=== PATIENT | female | born 1940 | race Caucasian/White ===

== ENCOUNTER 2018-04-10 18:02 | Emergency (ER) | payer MEDICARE, SELFPAY ==
[2018-04-10 18:03] VITALS: BP 114/71; PULSE 82; RESP 16; TEMP 36.6; O2SAT 99; BMI 21.6
--- NOTE | 2018-04-10 19:10 | CT_ITS ---
STUDY: CT BRAIN WITHOUT CONTRAST REASON FOR EXAM: Female, 77 years old. Visual disturbance. RADIATION DOSAGE (If Supplied By Facility): CTDIvol = ( 44.99 ) mGy, DLP = ( 779.24 ) mGycm TECHNIQUE: Transaxial CT imaging of the brain was performed without administration of intravenous contrast material. Individualized dose optimization techniques were used for this CT. COMPARISON: None. FINDINGS: There is no acute bleed or infarct. There are chronic ischemic and atrophic changes. The ventricles are normal in configuration. There is no hydrocephalus. The visualized paranasal sinuses are clear. The mastoid air cells are well aerated. There is no skull fracture. There is soft tissue swelling overlying the forehead and face. CT/Brain/Head without Contrast IMPRESSION: No acute intracranial abnormality. Chronic ischemic and atrophic changes. Soft tissue swelling overlying the forehead and face. Electronically Signed: Eusebio Pereira, at 20:49 EST Tel , Service support ,
[2018-04-10 19:53] LABS: Absolute Lymphocyte Count 0.74 X10^3/ul (0.83-4.51); Absolute Neutrophil Count 2.7 X10^3/uL (2.0-7.7); Basophil# 0.04 X10^3/uL; Hematocrit 37.2 % (37-47); Hemoglobin 12.3 g/dl (12.0-15.0); Lymphocyte # 0.74 X10^3/ul (4.0); Lymphocyte % 19.1 % (19-41); Mean Corp Hgb Conc 33.1 g/gl (32-36); Mean Corpuscular Hgb 31.7 pg (27.0-32.0); Mean Corpuscular Volume 95.9 fL (81-99); Monocyte% 10.3 % (0-10); Neutrophil # 2.69 X10^3/uL (2.7-7.7); Neutrophil % 69.6 % (47-70); Platelet Count 184 K/mm3 (150-450); RBC Distribution Width CV 14.1 % (11.6-14.6); RBC Distribution Width SD 49.5 fl (35.1-43.9); Red Blood Count 3.88 M/mm3 (4.2-5.4); White Blood Count 3.9 K/mm3 (4.4-11.0)
[2018-04-10 20:00] LABS: POSITIVE COUNT NO; POSITIVE DIFFERENTIAL NO; POSITIVE MORPHOLOGY NO
[2018-04-10 20:03] LABS: Anion Gap 7 (5-15); BUN 33 mg/dL (7-18); BUN/Creat Ratio 32.7 RATIO (10-20); Calcium,Total 8.5 mg/dL (8.5-10.1); Chloride 111 mmol/L (98-107); Creatinine, Serum 1.01 mg/dL (0.55-1.02); EST Glomerular Filtration Rate 56 mL/min (>60); Est Glom Filt Rate - Afr Amer 68 mL/min (>60); Estimated Creatinine Clearance 40.64 ml/min; Glucose 121 mg/dL (74-106); Potassium 3.8 mmol/L (3.5-5.1); Sodium Level 139 mmol/L (136-145)
--- NOTE | 2018-04-10 21:29 | ED.VISSUMM ---
- ER Visit Summary Date of Service: 04/10/18 Chief Complaint: Shingles History of Present Illness: The patient is a 77 F who presents with shingles that became worse today. Patient was recently diagnosed with shingles and was started on antiviral medicine. Family states that the shingles was over the left forehead and left periorbital area. Today they state that the swelling is around the right eye. Patient denies any fevers or chills. Patient admits to some blurred vision. Patient describes her headache as sharp and aching. Patient states the pain is over the rash area. Patient admits to some nausea but denies any vomiting. Physical Examination: Vital signs are stable. Patient is afebrile. Patient is in no acute distress. Skin is warm and dry. There is erythema in the periorbital areas bilaterally. There is vesicles and crusting noted over the left frontal area of the scalp. Pupils are equal, round, and reactive to light bilaterally. Extraocular muscles are intact. Tetracaine and fluorescein dye was applied. There is no dendritic lesion noted bilaterally. There are no corneal abrasions noted. Oral mucosa is pink and moist. Neck is supple. Trachea is midline. There is no JVD noted. There is no meningismus noted. Heart was regular rate and rhythm. Lungs are clear and equal bilateral. Cranial nerves II through XII are intact. There are no focal motor or sensory deficits noted. Test Results: CT scan of the brain was obtained. There is no acute intracranial abnormality noted. CBC shows a white blood cell count 3.9. Metabolic profile was normal. Emergency Department Course and Treatment: Patient was given IV fluids and morphine here. Patient and family were advised of the results. poultry offal worker was in to discuss home-going plan with the patient and family. Patient was instructed to follow-up with her primary care physician in 3-5 days. Patient and family understood and were agreeable with the plan. All questions were answered. Disposition: Discharge home Impression: Varicella-zoster This note was generated with IAMINTO[employer] dictation software. It may contain incorrect words, spelling, and punctuation that were not noted in review of the chart prior to signing ED Disposition - Plan for ED Patient: Disposition: Home or Assisted Living Diagnosis: Varicella zoster Instructions: ED Shingles Referrals: Skinny Bains MD [Primary Care Provider] -
--- NOTE | 2018-04-10 21:34 | ED.DCSUM_ITS ---
- ER Visit Summary Date of Service: 04/10/18 Chief Complaint: Shingles History of Present Illness: The patient is a 77 F who presents with shingles that became worse today. Patient was recently diagnosed with shingles and was started on antiviral medicine. Family states that the shingles was over the left forehead and left periorbital area. Today they state that the swelling is around the right eye. Patient denies any fevers or chills. Patient admits to some blurred vision. Patient describes her headache as sharp and aching. Patient states the pain is over the rash area. Patient admits to some nausea but denies any vomiting. Physical Examination: Vital signs are stable. Patient is afebrile. Patient is in no acute distress. Skin is warm and dry. There is erythema in the periorbital areas bilaterally. There is vesicles and crusting noted over the left frontal area of the scalp. Pupils are equal, round, and reactive to light bilaterally. Extraocular muscles are intact. Tetracaine and fluorescein dye was applied. There is no dendritic lesion noted bilaterally. There are no corneal abrasions noted. Oral mucosa is pink and moist. Neck is supple. Trachea is midline. There is no JVD noted. There is no meningismus noted. Heart was regular rate and rhythm. Lungs are clear and equal bilateral. Cranial nerves II through XII are intact. There are no focal motor or sensory deficits noted. Test Results: CT scan of the brain was obtained. There is no acute intracranial abnormality noted. CBC shows a white blood cell count 3.9. Metabolic profile was normal. Emergency Department Course and Treatment: Patient was given IV fluids and morphine here. Patient and family were advised of the results. slab worker was in to discuss home-going plan with the patient and family. Patient was instructed to follow-up with her primary care physician in 3-5 days. Patient and family understood and were agreeable with the plan. All questions were answered. Disposition: Discharge home Impression: Varicella-zoster This note was generated with Driverdo dictation software. It may contain incorrect words, spelling, and punctuation that were not noted in review of the chart prior to signing ED Disposition - Plan for ED Patient: Disposition: Home or Assisted Living Diagnosis: Varicella zoster Instructions: ED Shingles Referrals: Skinny Bains MD [Primary Care Provider] -
[2018-04-10] MEDS: Morphine 4 MG/ML Syringe IV (21:49)
--- NOTE | 2018-04-10 21:56 | CM.ED ---
SOCIAL WORK NOTE DR. LIM REQUESTED THIS WORKER FOLLOW UP WITH FAMILY REGARDING D/C NEEDS. MET WITH PT, PT'S SON, CARLOS ([phone]) AND DAUGHTER, ANDRZEJ AT BEDSIDE. PT PRESENTS TO THE ED WITH SHINGLES. FAMILY WAS HOPING PT WOULD BE ADMITTED THEY BELIEVE SHINGLES TO BE GETTING WORSE AND ARE CONCERNED PT IS NOT EATING AND SLEEPING A LOT. EDUCATION AND SUPPORT PROVIDED. PER DR. LIM, PT DOES NOT MEET ADMISSION CRITERIA. DISCUSSED OPTIONS FOR HOME HEALTH OR PRIVATE PAY TO LONG TERM. FAMILY DECLINE NEEDS AT THIS TIME. FAMILY STATES WILL ASSIST PT WITH MEDICATIONS AND MEALS. DAUGHTER REPORTS PT HAS FOLLOW UP APPOINTMENTS WITH PCP AND EYE DOCTOR ON FRIDAY AND WILL DISCUSS FURTHER NEEDS AT THAT TIME. EDUCATION PROVIDED ON MEDICAID AND PASSPORT SERVICES. SON PROVIDED WITH CONTACT INFORMATION FOR MEDICAID SHARED SERVICES TO START MEDICAID PROCESS THEY BELIEVE PT WILL QUALIFY. CONTACT INFORMATION FOR THIS WORKER ALSO GIVEN FOR ANY FURTHER ASSISTANCE OR NEEDS. UPDATED DR. LIM ON THIS WORKER'S DISCUSSION WITH PT AND FAMILY. PLAN: D/C HOME WITH ASSISTANCE FROM FAMILY. [place], LIVESTOCK JUDGING COACH, ADMISSION NURSE.
[2018-04-10 22:22] VITALS: BP 125/67; PULSE 94; RESP 15; O2SAT 98
[2018-04-10] MEDS: Tetracaine 0.5% Ophthalmic Bottle 1 DRP EACH EYE (22:23)
[2018-04-10] MEDS: Fluorescein 1 MG STRIP 1 STRIP EACH EYE (22:23)
--- NOTE | 2018-05-26 11:00 | CM.ED ---
SOCIAL WORK NOTE VM FROM PT'S DAUGHTER, ANDRZEJ, STATING THAT SHE WOULD LIKE THE ED MANAGER OF MERCHANDISING TO SETUP IN HOME CARE THROUGH PASSPORT SERVICES. REVIEW [facility] [employer], DISPENSING OPTICIAN APPRENTICE, DOCUMENTATION FROM 04/10 WHERE SHE REVIEWED MEDICAID AND PASSPORT SERVICES WITH PT AND FAMILY. PLACED CALL TO ANDRZEJ AND LEFT VM UPDATING THAT PASSPORT WOULD NOT BE APPROVED UNLESS THEY HAD APPLIED FOR MEDICAID AT THIS TIME, AND THAT HOME CARE CAN NOT BE ESTABLISHED BY THE HOSPITAL PRESENTLY NO MEDICAL PROFESSIONAL SEEN THE PT FACE TO FACE IN OVER 30 DAYS AND RECOMMEND THAT THEY SCHEDULE AN APPOINTMENT WITH THEIR PCP FOR ORDER HHC SERVICES. MADE AWARE THAT THIS LABORATORY ASSOCIATE IS AVAILABLE TODAY IF FURTHER QUESTIONS ARISE. WILL CONTINUE TO FOLLOW AND ASSIST NEEDED. Luzma Vines, MANAGER CUSTOMS, STRAW HAT WASHER OPERATOR
--- NOTE | 2018-05-26 12:02 | CM.ED ---
SOCIAL WORK NOTE CALL BACK FROM ANDRZEJ REQUESTING INFORMATION ON HOW TO APPLY FOR MEDICAID. INFORM THAT SHE CAN FILL OUT A HARD COPY, GO ONLINE OR CALL THE PHONE NUMBER TO APPLY. ANDRZEJ REQUESTS THAT THIS GREEN CHAIN OPERATOR MAIL HER AN APPLICATION. DISCUSS THAT ONCE THE PT RECEIVES MEDICAID SHE COULD BE ELIGIBLE FOR PASSPORT SERVICES AND TO LET [facility] KNOW THEY ARE INTERESTED IN THOSE SERVICES WHEN THEY SUBMIT THE APPLICATION. ALSO DISCUSS CCN AND SENT REFERRAL THIS DATE. CONFIRM ANDRZEJ'S ADDRESS [address] [place] [address]. REQUESTED INFORMATION MAILED. NO FURTHER NEEDS AT THIS TIME. PLAN: [facility] REFERRAL MADE. MEDICAID APPLICATION MAILED TO FAMILY. Luzma Vines, PRODUCTION CONTROL TECHNOLOGIST, LABORER CONCRETE PLANT
== END 2018-04-10 22:32 | disposition home or self-care (01) ==
PROVIDERS: Emergency Provider Emergency Medicine; Family Provider Family Medicine; PCP Family Medicine
DX: B01.9 Varicella without complication (principal); F03.90 Unspecified dementia, unspecified severity, without behavioral disturbance, psychotic disturbance, mood disturbance, and anxiety
CPT/HCPCS: 70450; 80048; 85025; 96374; 99283; A4216

== ENCOUNTER 2019-12-10 15:50 | Inpatient (IN) | payer MEDICARE, SELFPAY ==
[2019-12-10 15:55] VITALS: BP 153/60; PULSE 58; RESP 18; TEMP 36.6; O2SAT 97; BMI 21.4
--- NOTE | 2019-12-10 16:08 | ED.VIS.GEN ---
History of Present Illness Chief Complaint: Weakness Informant: Patient, Family, Traffic Control Specialist Narrative: Patient presents the emergency department following a diagnosis of COVID-19. She has been sick since last . Family notes T-max of about 100.3. Sinus congestion and a slight cough. They note her to be generally weak and sleeping more than normal. She really has not had much to eat the past few days. Today she was going out to the couch stopped and stared seem to shake a little bit and almost collapsed. This happened again. EMS was called. She found out her Covid test was positive today. She denies any diarrhea or urinary symptoms. She denies any shortness of breath. Family does note some confusion Past Medical History - Allergies and Home Meds Allergies/Adverse Reactions: Allergies No Known Allergies Allergy (Verified 12/10/19 15:55) Primary Care Physician: Skinny Bains MD [Primary Care Provider] - Prior records reviewed: Yes Surgical History: noncontributory Lives: With Family Smoking Status: Former smoker Drugs: None - Family History Maternal Family History: Reports: Cancer - There with history of breast cancer. Paternal Family History: Reports: Hypertension Sibling Family History: Reports: Cancer - Sister with a history of lymphoma. Review of Systems General: Reports: Chills, Fever, Malaise. Denies: Sweats Eyes: Denies: Visual changes - bilaterally, Diplopia ENT: Reports: Rhinorrhea. Denies: Sore throat Cardiovascular: Denies: Chest pain, Palpitations Respiratory: Reports: Cough. Denies: Dyspnea, Dyspnea on exertion Gastrointestinal: Reports: - - Anorexia. Denies: Abdominal pain, Nausea, Vomiting, Diarrhea, Melena, Hematochezia Genitourinary: Denies: Dysuria, Hematuria, Frequency Musculoskeletal: Denies: Back pain, Extremity Pain Skin: Denies: Rash, Wounds Neurological: Denies: Headache, Weakness, Numbness Physical Exam Vital Signs/Narrative: Vital Signs Temp Pulse Resp BP Pulse Ox 12/10/19 15:55 98 F 58 L 18 153/60 H 97 Inital Vital Signs reviewed: Yes General: Well nourished, Well developed, No Acute Distress Head: Normocephalic, Atraumatic Eyes: Perrl, EOMI ENT: Dry mucous membranes, Nasal congestion Neck: Supple, Nontender Cardiovascular: Regular rate, Regular rhythm, No murmurs Respiratory: No distress, CTA bilaterally, Chest nontender, - - Mild nonproductive cough Abdomen: Soft, Nontender, Nondistended, Normal bowel sounds Back: Nontender, Normal Inspection Extremities: No edema, Tenderness - Right foot mildly tender Skin: Normal color, No rash Neurological: Alert, Oriented x3, Cranial nerves II-XII grossly intact, Normal Strength, Normal Sensation Psychological: Normal affect, Normal Mood Diagnostic/Tx/Re-eval Clinical Impression(s) from Imaging Studies Chest X-Ray 12/10/19 16:20 IMPRESSION: Emphysema without pneumonia or atelectasis. Electronically Signed: Andres Gray MD at 16:45 EDT Tel , Service support , Foot X-Ray 12/10/19 17:30 IMPRESSION: Evaluation of the first and second toes is limited by suboptimal positioning. No fracture or dislocation identified in the right foot. Mild degenerative changes at the first MTP joint with hallux valgus. Electronically Signed: Eusebio Pereira, at 17:44 EDT Tel , Service support , Laboratory Last Values WBC 2.1 K/mm3 (4.4-11.0) L 12/10/19 16:40 RBC 3.58 M/mm3 (4.2-5.4) L 12/10/19 16:40 Hgb 11.5 g/dL (12.0-15.0) L 12/10/19 16:40 Hct 35.2 % (37-47) L 12/10/19 16:40 MCV 98.3 fL (81-99) 12/10/19 16:40 MCH 32.1 pg (27.0-32.0) H 12/10/19 16:40 MCHC 32.7 g/dL (32-36) 12/10/19 16:40 RDW Std Deviation 46.5 fl (35.1-43.9) H 12/10/19 16:40 RDW Coeff of Kaye 12.9 % (11.6-14.6) 12/10/19 16:40 Plt Count 213 K/mm3 (150-450) 12/10/19 16:40 MPV 9.6 fl (6.2-12.0) 12/10/19 16:40 Immature Gran % (Auto) 1.400 % (0.0-0.9) H 12/10/19 16:40 Neut % (Auto) 71.5 % (47-70) H 12/10/19 16:40 Lymph % (Auto) 19.0 % (19-41) 12/10/19 16:40 [place] % (Auto) 8.1 % (0-10) 12/10/19 16:40 Eos % (Auto) 0.0 % (0-5) 12/10/19 16:40 Baso % (Auto) 0.0 % (0-1) 12/10/19 16:40 Absolute Neuts (auto) 1.5 X10^3/uL (2.0-7.7) L 12/10/19 16:40 Absolute Lymphs (auto) 0.40 X10^3/uL (0.83-4.51) L 12/10/19 16:40 Nucleated RBC % 0 % (0-5) 12/10/19 16:40 Differential Comment SEE COMMENT 12/10/19 16:40 Diff Path Review June12/10/19 16:40 Platelet Estimate ADEQUATE (ADEQ) 12/10/19 16:40 RBC Morphology N CHROM NORMAL (NORM C&C) 12/10/19 16:40 Anisocytosis RARE 12/10/19 16:40 Macrocytosis RARE 12/10/19 16:40 Ovalocytes RARE 12/10/19 16:40 Fibrinogen 552 mg/dl (203-444) H 12/10/19 16:40 D-Dimer Quant (PE/DVT) 4.33 FEU/ug/m (0.27-0.49) H* 12/10/19 16:40 Sodium 140 mmol/L (136-145) 12/10/19 16:40 Potassium 4.1 mmol/L (3.5-5.1) 12/10/19 16:40 Chloride 110 mmol/L (98-107) H 12/10/19 16:40 Carbon Dioxide 23.0 mmol/L (21.0-32.0) 12/10/19 16:40 Anion Gap 7 (5-15) 12/10/19 16:40 BUN 24 mg/dL (7-18) H 12/10/19 16:40 Creatinine 1.30 mg/dL (0.55-1.02) H 12/10/19 16:40 Estim Creat Clear Calc 30.54 ml/min 12/10/19 16:40 Est GFR (MDRD) Af Amer 51 mL/min (>60) L 12/10/19 16:40 Est GFR (MDRD) Non-Af 42 mL/min (>60) L 12/10/19 16:40 BUN/Creatinine Ratio 18.5 RATIO (-20) 12/10/19 16:40 Glucose 95 mg/dL (74-106) 12/10/19 16:40 Lactic Acid 0.9 mmol/L (0.4-1.9) 12/10/19 16:40 Calcium 8.6 mg/dL (8.5-10.1) 12/10/19 16:40 Total Bilirubin 0.20 mg/dL (0.20-1.00) 12/10/19 16:40 AST 55 U/L (15-37) H 12/10/19 16:40 ALT 33 U/L (13-56) 12/10/19 16:40 Alkaline Phosphatase 66 U/L (45-117) 12/10/19 16:40 Lactate Dehydrogenase 401 U/L (84-246) H 12/10/19 16:40 Total Creatine Kinase 95 U/L (26-192) 12/10/19 16:40 Troponin I < 0.015 ng/mL (<0.045) 12/10/19 16:40 C-React Prot Ext Range 36.80 mg/L (0.0-3.0) H 12/10/19 16:40 Total Protein 6.9 g/dL (6.4-8.2) 12/10/19 16:40 Albumin 2.8 g/dL (3.2-5.0) L 12/10/19 16:40 Globulin 4.1 g/dL (2.2-4.2) 12/10/19 16:40 Albumin/Globulin Ratio 0.7 RATIO (0.9-2.4) L 12/10/19 16:40 - Medical Decision Making Patient received IV fluids. Her plan is admission into the hospital as she has debility and a mild encephalopathy most likely from the Covid. ED Disposition - Plan for ED Patient: Disposition: Acute Care Hospital [facility] Diagnosis: COVID-19, Weakness, Debility, Encephalopathy acute Referrals: Skinny Bains MD [Primary Care Provider] -
--- NOTE | 2019-12-10 16:18 | EKG12_ITS ---
Test Reason : Blood Pressure : / mmHG Vent. Rate : 059 BPM Atrial Rate : 059 BPM P-R Int : 168 ms QRS Dur : 080 ms QT Int : 430 ms P-R-T Axes : 061 016 050 degrees QTc Int : 425 ms Sinus bradycardia Otherwise normal ECG Confirmed by KRISTIN JACQUES, RENUKA ([id number]), telegraph editor ZULAY EDDY ([id number]) on 12/13/2019 11:29:47 AM Referred By: CHANCE Confirmed By:RENUKA FOSTER MD
--- NOTE | 2019-12-10 16:20 | RAD_ITS ---
STUDY: X-RAY CHEST REASON FOR EXAM: Female, 79 years old. POSITIVE COVID. WEAKNESS. TECHNIQUE: Single AP portable view of the chest. COMPARISON: None. FINDINGS: There is hyperinflation of the lungs consistent with chronic obstructive lung disease (COPD). Elevated right hemidiaphragm. Normal size heart. Normal mediastinum and nay. Normal visualized pulmonary arteries. Normal visualized aortic arch and descending thoracic aorta. Normal visualized thoracic spine. Normal visualized ribs, clavicles, and shoulders. There is no demonstrated abnormality of the visualized soft tissue structures of the upper abdomen. RAD/Chest 1 View (Portable) IMPRESSION: Emphysema without pneumonia or atelectasis. Electronically Signed: Andres Gray MD at 16:45 EDT Tel , Service support ,
[2019-12-10] MEDS: 0.9% Normal Saline 1,000 ML 999 ML IV (16:34)
--- NOTE | 2019-12-10 16:45 | NURSING ---
PT DID NOT HAVE A PREVIOUS EKG IN OUR SYSTEM
[2019-12-10 17:02] LABS: Absolute Neutrophil Count 1.5 X10^3/uL (2.0-7.7); Hematocrit 35.2 % (37-47); Hemoglobin 11.5 g/dL (12.0-15.0); Mean Corp Hgb Conc 32.7 g/dL (32-36); Mean Corpuscular Hgb 32.1 pg (27.0-32.0); Mean Corpuscular Volume 98.3 fL (81-99); Mean Platelet Vol. 9.6 fl (6.2-12.0); Monocyte# 0.17 X10^3/uL; Monocyte% 8.1 % (0-10); NRBC Flagged by Analyzer 0 % (0-5); Neutrophil % 71.5 % (47-70); POSITIVE DIFFERENTIAL YES; Platelet Count 213 K/mm3 (150-450); RBC Distribution Width CV 12.9 % (11.6-14.6); RBC Distribution Width SD 46.5 fl (35.1-43.9); Red Blood Count 3.58 M/mm3 (4.2-5.4); White Blood Count 2.1 K/mm3 (4.4-11.0)
[2019-12-10 17:20] LABS: Fibrinogen 552 mg/dl (203-444)
[2019-12-10 17:22] LABS: Differential Indicated SCAN CRITERIA MET
[2019-12-10 17:30] LABS: ALB/GLOB Ratio 0.7 RATIO (0.9-2.4); AST(SGOT) 55 U/L (15-37); Alanine Aminotransfer ALT/SGPT 33 U/L (13-56); Albumin, Serum 2.8 g/dL (3.2-5.0); Alkaline Phosphatase 66 U/L (45-117); Anion Gap 7 (5-15); BUN 24 mg/dL (7-18); BUN/Creat Ratio 18.5 RATIO (10-20); CPK Total, Creatine Kinase 95 U/L (26-192); Calcium,Total 8.6 mg/dL (8.5-10.1); Chloride 110 mmol/L (98-107); EST Glomerular Filtration Rate 42 mL/min (>60); Est Glom Filt Rate - Afr Amer 51 mL/min (>60); Estimated Creatinine Clearance 30.54 ml/min; Globulin 4.1 g/dL (2.2-4.2); Glucose 95 mg/dL (74-106); LDH 401 U/L (84-246); Potassium 4.1 mmol/L (3.5-5.1); Protein, Total 6.9 g/dL (6.4-8.2); Sodium Level 140 mmol/L (136-145)
--- NOTE | 2019-12-10 17:30 | RAD_ITS ---
STUDY: X-RAY - RIGHT FOOT CLINICAL: Female, 79 years old. Pain TECHNIQUE: 3 view(s) of the foot. COMPARISON: None. FINDINGS: Evaluation of the first and second toes is limited by suboptimal positioning. There is no fracture or dislocation identified in the right foot. There are mild degenerative changes noted at the first metatarsophalangeal joint with hallux valgus noted. There are no radiodense foreign bodies. RAD/Foot min 3 Views IMPRESSION: Evaluation of the first and second toes is limited by suboptimal positioning. No fracture or dislocation identified in the right foot. Mild degenerative changes at the first MTP joint with hallux valgus. Electronically Signed: Eusebio Pereira, at 17:44 EDT Tel , Service support ,
[2019-12-10 17:32] LABS: Anisocytosis RARE; Macrocytosis RARE; Ovalocyte RARE; Platelet Estimate ADEQUATE (ADEQ); Red Cell Morphology N CHROM NORMAL (NORM C&C)
[2019-12-10 17:39] LABS: Lactic Acid 0.9 mmol/L (0.4-1.9)
--- NOTE | 2019-12-10 17:48 | PCM.HP.STD ---
Problem List (1) COVID-19 Status: Acute (2) Encephalopathy acute Status: Acute (3) Anemia Status: Chronic Qualifiers: Anemia type: unspecified type Qualified Code(s): D64.9 - Anemia, unspecified (4) Leukopenia Status: Acute Qualifiers: Neutropenia type: unspecified (5) Lymphopenia associated with COVID-19 Status: Acute (6) Dementia Status: Acute Qualifiers: Dementia type: unspecified type Dementia behavioral disturbance: without behavioral disturbance Qualified Code(s): F03.90 - Unspecified dementia without behavioral disturbance (7) CKD (chronic kidney disease), stage III Status: Chronic Qualifiers: Chronic kidney disease stage 3 subtype: unspecified whether 3a or 3b Qualified Code(s): N18.30 - Chronic kidney disease, stage 3 unspecified History of Present Illness Date of Admission: 12/10/19 Chief Complaint: Weakness, fatigue, malaise, recent COVID + status. The patient is a 79 y/o F w/ PMHx: Dementia unclear type without behavioral disturbance history, Hx Shingles who presents to the [facility] ED on 12/10/19 with history of intermittent fevers, now more low-grade intermittently with malaise, fatigue, chills, frontal throbbing mild headache, nausea, emesis, abdominal cramping noted to be mild with loose stools as well as decreased sense of taste and smell with mild cough, not markedly productive with no severe dyspnea starting approximately 1 week prior with evaluation in [place] for Covid with Covid testing performed and patient noted she was called the day as she was noted to be positive. Family was at home with her and she was attempting to continue to care for self at home but was intermittently fatigued, confused and extremely weak therefore they brought her to the ED for evaluation. Work-up in the ED included T 98, heart rate 58, BP 153/60, respiratory rate 18, 97% on room air, CBC with WC 2.1, hemoglobin 11.5, platelet 213 with lymphopenia and leukopenia, fibrinogen 552, D-dimer pending, CMP with chloride 110, BUN/creatinine 24/1.30, lactic acid 0.9, AST/ALT 55/33, alk phos 66, LDH 401, T CK 95, troponin less than 0.015, CRP 36.80, procalcitonin pending, respiratory viral pending, blood culture x2 pending, chest x-ray with emphysematous changes with no obvious infiltrate or atelectasis, plain film of the right foot with first and second toe limited secondary to suboptimal position with no obvious fracture or dislocation identified in the right foot with mild degenerative changes at the first MTP joint with hallux valgus. In the ED patient was administered normal saline. Past Medical History Past Medical History (Chronic Problems): Chronic Problems Anemia (Chronic) CKD (chronic kidney disease), stage III (Chronic) Allergies No Known Allergies Allergy (Verified 12/10/19 15:55) Home Medications: Ambulatory Orders Medication Instructions Recorded Donepezil HCl [Aricept] 5 mg PO QHS 04/10/18 Tobramycin/Dexamethasone 04/10/18 Valacyclovir HCl [Valacyclovir] 1,000 mg PO DAILY 04/10/18 Surgical History: tonsillectomy Psychiatric History: No pertinent psych hx CUTTER GAS History: No pertinent CUTTER GAS history Lives: Alone Smoking Status: Former smoker Tobacco Use: Non-smoker Alcohol: None Drugs: None - *Family History Maternal History Items: Cancer - There with history of breast cancer. Paternal History Items: Hypertension Sibling History Items: Cancer - Sister with a history of lymphoma. Review of Systems Constitutional: Reports: Anorexia, Chills, Fever, Malaise, Weakness, Fatigue. Denies: Weight Change HEENT: Reports: Head Aches, Sinus Congestion, Sore Throat. Denies: Sinus Drainage Cardiovascular: Denies: Chest Pain, Palpitations Respiratory: Reports: Cough. Denies: Shortness of Breath, Shortness of breath at rest, Shortness of breath upon exertion, Sputum production, Wheezing Gastrointestinal: Reports: Abdominal Pain, Diarrhea, Nausea, Vomiting Genitourinary: Denies: Dysuria Musculoskeletal: Reports: Joint Pain, Muscle pain. Denies: Joint Tenderness Skin: Denies: Rash, Wounds Neurological: Denies: Numbness, Tingling, Focal weakness Psychiatric: Denies: Anxiety, Depression, Homicidal Ideations, Suicidal Ideations Hematologic/ Lymphatic: Reports: Anemia. Denies: Easy Bruising, Easy Bleeding VTE Information - Inpt Only VTE Present on Admission: No VTE Mechan Device Prophylaxis: SCD's VTE Pharm Prophylaxis ordered?: Yes Patient Problems: Active and Suspected Problems COVID-19 (Acute) Weakness (Acute) Encephalopathy acute (Acute) Leukopenia (Acute) Lymphopenia associated with COVID-19 (Acute) Dementia (Acute) Subjective: Patient seated upright in the ED bed, fatigued, ill-appearing. Objective: Physical Examination: General: awake, alert, oriented to self and place but more confused than usual per family present, frequently looking to her daughter to answer questions, remains cooperative, seated upright in the ED bed, fatigued and ill-appearing. Skin: normal color, turgor, no icterus, cyanosis vaginal abrasion, staged. HEENT: AT/NC, EOMI, PERRLA, dry MM, no carotid bruits or JVD noted. Lungs: CTA bilaterally, moderate effort, mild decrease BL bases, no rales, ronchi or wheezing. Heart: Regular rate and rhythm; no gallop, rub audible. Abdomen: soft, generalized discomfort palpation of the abdomen, not markedly distended, hyperactive bowel sounds, no obvious HSM. Extremities: no cyanosis, clubbing, or edema, recently stubbed toe, some discomfort with palpation of the right second toe, no obvious bruising. Neurological: patient awake, alert, oriented as noted; cognitive function not baseline intact but does have underlying dementia to but decreased from prior per family report; pupils equally reactive to light and accomodation; cranial nerves II-XII grossly normal, moving all 4 extremities, no focal deficits, strength severely global decreased. Psychiatric: affect appears fatigued, flat, no acute evidence of depressive or anxiety feelings. - Physical Exam Vitals/I&O's: Vital Signs Temp Pulse Resp BP Pulse Ox 98 F 58 L 18 153/60 H 97 12/10/19 15:55 12/10/19 15:55 12/10/19 15:55 12/10/19 15:55 12/10/19 15:55 Oxygen Delivery Method Room Air Weight: 128 lb 11.2 oz Body Mass Index (BMI) 21.4 Laboratory Results 12/10/19 16:40: WBC 2.1 L, RBC 3.58 L, Hgb 11.5 L, Hct 35.2 L, MCV 98.3, MCH 32.1 H, MCHC 32.7, RDW Std Deviation 46.5 H, RDW Coeff of Kaye 12.9, Plt Count 213, MPV 9.6, Immature Gran % (Auto) 1.400 H, Neut % (Auto) 71.5 H, Lymph % (Auto) 19.0, [place] % (Auto) 8.1, Eos % (Auto) 0.0, Baso % (Auto) 0.0, Absolute Neuts (auto) 1.5 L, Absolute Lymphs (auto) 0.40 L, Nucleated RBC % 0, Differential Comment SEE COMMENT, Diff Path Review May foll, Platelet Estimate ADEQUATE, RBC Morphology N CHROM, Anisocytosis RARE, Macrocytosis RARE, Ovalocytes RARE 12/10/19 16:40: Fibrinogen 552 H, D-Dimer Quant (PE/DVT) Pending 12/10/19 16:40: Sodium 140, Potassium 4.1, Chloride 110 H, Carbon Dioxide 23.0, Anion Gap 7, BUN 24 H, Creatinine 1.30 H, Estim Creat Clear Calc 30.54, Est GFR (MDRD) Af Amer 51 L, Est GFR (MDRD) Non-Af 42 L, BUN/Creatinine Ratio 18.5, Glucose 95, Calcium 8.6, Total Bilirubin 0.20, AST 55 H, ALT 33, Alkaline Phosphatase 66, Lactate Dehydrogenase 401 H, Total Creatine Kinase 95, Troponin I < 0.015, C-React Prot Ext Range 36.80 H, Total Protein 6.9, Albumin 2.8 L, Globulin 4.1, Albumin/Globulin Ratio 0.7 L 12/10/19 16:40: Lactic Acid 0.9 12/10/19 17:30: Procalcitonin Pending Current Medications Sodium Chloride () 1,000 mls @ 125 mls/hr IV .Q8H [facility] Assessment/Plan All Active Problems COVID-19 (Acute) Weakness (Acute) Encephalopathy acute (Acute) Leukopenia (Acute) Lymphopenia associated with COVID-19 (Acute) Dementia (Acute) The patient is a 79 y/o F w/ PMHx: Dementia unclear type without behavioral disturbance history, Hx Shingles who presents to the [facility] ED on 12/10/19 with + COVID status with worsening symptoms, fatigue, malaise and confusion. 1. Acute Encephalopathy secondary to Acute Cough, Fever, Nausea, Abdominal Pain, Diarrhea, Headaches, Malaiser, worsening, unable to care for self secondary to Acute Viral Syndrome, COVID-19: Patient with leukopenia, lymphopenia, CXR with no acute obvious cardiopulmonary findings with chronic COPD type changes, respiratory viral panel pending per ED, will admit to the COVID unit, will maintain on oxygen with wean as tolerated to room air, PRN albuterol, HOB, IS parameters w/ pending sputum cultures and urine antigens, ED already obtained CRP, CPK, LDH, pending D-dimer and procalcitonin, will add ferritin level, continue supportive care including q 2 hour. If patient worsens with need for oxygen >6 L would plan intubation with ICU physician continued care. Bld cx x 2 obtained in the ED. 2. Chronic Kidney Disease Stage III: Admission BUN/Cr 24/1.30, baseline renal function 1.0-1.1. 3. Normocytic anemia, unclear chronicity: Admission hemoglobin 11.5, unclear if new, possibly related with acute presentation, will obtain iron panel, ferritin, vitamin B12 and folic acid level. 4. Dementia, unclear type with unclear behavioral disturbance history: We will continue patient home Aricept regimen. 5. History of shingles: We will continue patient home valacyclovir suppressive regimen. 6. DVT prophylaxis: SCDs, Lovenox. Pending D-dimer as noted. 7. CODE status: Patient HCPOA is daughter who is present and living will is in place. Discussed CODE status at length including difference between FULL code, DNR-CCA and DNR-CC status. Following discussions about the differences in these status, requested Full Code. Advanced Care Planning Face to Face Time: 16 minutes. Inpatient E&M: 86427 Init Hosp L3 Procedures: 32320 Advncd Care Plan 30 Min
[2019-12-10 18:09] LABS: D-Dimer Quantitative (DVT/PE) 4.33 FEU/ug/m (0.27-0.49)
--- NOTE | 2019-12-10 18:11 | CT_ITS ---
STUDY: CTA CHEST REASON FOR EXAM: Female, 79 years old. Dyspnea. Weakness. Dementia. COVID 19 positive. RADIATION DOSAGE (If Supplied By Facility): CTDIvol = ( 11.38 ) mGy, DLP = ( 294.69 ) mGycm TECHNIQUE: The examination was performed with the intravenous administration of IV 100mL Isovue-370. Post-processing of the angiographic images was performed, with multiplanar reformation and 3D reconstruction. Individualized dose optimization techniques were used for this CT. COMPARISON: Chest, 12/10/2019. FINDINGS: Normal enhancement of the main pulmonary artery and right and left pulmonary arteries. Normal enhancement of the bilateral peripheral pulmonary arteries. There is no demonstrated pulmonary embolism. Normal thoracic aorta and visualized great vessels. There is no demonstrated aortic dissection. Normal heart and pericardium. There are mildly enlarged prevascular and precarinal and subcarinal lymph nodes. Question minimal right hilar lymphadenopathy. Normal left hilum.. Normal visualized trachea and bronchi. The lungs are well expanded. There is diffuse groundglass infiltrates throughout both lungs without focal consolidation or mass. Normal pleura. Normal chest wall structures. There are degenerative changes of thoracic spine. Question small hiatal hernia. The upper abdomen appears otherwise grossly normal. CT/CTA Chest W/WO Contrast IMPRESSION: 1. No evidence of pulmonary embolus. 2. No aortic dissection or aneurysm. 3. Patchy groundglass pulmonary infiltrates. Findings are consistent but not diagnostic of COVID 19 pneumonia. 4. Mild right hilar and mediastinal lymphadenopathy. 5. Small hiatal hernia. Electronically Signed: Yogesh Vazquez DO at 18:56 EDT Tel [phone], Service support ,
[2019-12-10 18:48] LABS: Procalcitonin 0.15 ng/mL (0.00-0.09)
[2019-12-10 19:27] VITALS: BP 156/96; PULSE 62; RESP 18; TEMP 37.3; O2SAT 97
[2019-12-10] MEDS: 0.9% Normal Saline 1,000 ML 125 ML IV (19:29)
[2019-12-10 19:51] VITALS: BMI 20.8
[2019-12-10 19:59] VITALS: BP 139/67; PULSE 69; RESP 18; TEMP 37.4; O2SAT 92
[2019-12-10 20:01] VITALS: BMI 20.8
[2019-12-10] MEDS: 0.9% Normal Saline 1,000 ML 100 ML IV (20:09)
[2019-12-10 20:12] LABS: Ferritin 346 ng/mL (8-252); Iron 20 ug/dL (50-170); Iron Binding Capacity,Total 234 ug/dL (250-450); Magnesium 2.5 mg/dL (1.6-2.6); PERCENT IRON SATURATION 8.5 % (15.0-55.0)
[2019-12-10 20:22] VITALS: O2SAT 92
[2019-12-10] MEDS: Acetaminophen 325 MG Tablet 650 MG PO (21:04)
[2019-12-10] MEDS: Enoxaparin 60 MG/0.6 ML Syringe SC (21:04)
[2019-12-10] MEDS: MELATONIN 3 MG TABLET PO (21:05)
[2019-12-10] MEDS: Donepezil HCl 5 MG Tablet PO (21:05)
[2019-12-10] MEDS: Famotidine 20 MG Tablet PO (21:05)
[2019-12-10 21:23] VITALS: O2SAT 92
[2019-12-11] VITALS (10 sets, daily range): BP systolic 129–154; BP diastolic 62–95; PULSE 58–64; RESP 18–26; TEMP 36.8–38.2; O2SAT 89–94
[2019-12-11] MEDS: 0.9% Saline Lock 10 ML Syringe IV (06:40)
[2019-12-11 07:23] LABS: Absolute Neutrophil Count 1.2 X10^3/uL (2.0-7.7); Basophil# 0.01 X10^3/uL; Basophil% 0.5 % (0-1); Eosinophil# 0.01 X10^3/uL; Eosinophils% 0.5 % (0-5); Hematocrit 33.9 % (37-47); Mean Corp Hgb Conc 32.4 g/dL (32-36); Mean Corpuscular Hgb 31.9 pg (27.0-32.0); Mean Corpuscular Volume 98.3 fL (81-99); Mean Platelet Vol. 9.8 fl (6.2-12.0); Monocyte# 0.16 X10^3/uL; Monocyte% 7.8 % (0-10); NRBC Flagged by Analyzer 0 % (0-5); Neutrophil # 1.17 X10^3/uL (2.7-7.7); Neutrophil % 56.7 % (47-70); Platelet Count 216 K/mm3 (150-450); RBC Distribution Width CV 13.2 % (11.6-14.6); RBC Distribution Width SD 47.1 fl (35.1-43.9); Red Blood Count 3.45 M/mm3 (4.2-5.4); White Blood Count 2.1 K/mm3 (4.4-11.0)
--- NOTE | 2019-12-11 07:50 | PN_ITS ---
Patient Problems: Active and Suspected Problems COVID-19 (Acute) Weakness (Acute) Encephalopathy acute (Acute) Leukopenia (Acute) Lymphopenia associated with COVID-19 (Acute) Dementia (Acute) Debility (Acute) Subjective: Patient seen and examined. She was admitted for acute metabolic encephalopathy due to Covid infection. She has no complaints this morning and just says she felt a bit weak but felt much better than when she came in. She denied any shortness of breath or cough, chest pain, palpitations, dizziness, nausea vo miting or diarrhea. She is on room air. Temperature is 100 ?F this morning patient has otherwise remained hemodynamically stable. Labs are essentially unremarkable today. Vitals/I&O's: Vital Signs Temp Pulse Resp BP Pulse Ox 100 F H 60 18 136/62 H 92 12/11/19 01:57 12/11/19 01:57 12/11/19 01:57 12/11/19 01:57 12/11/19 01:57 Oxygen Delivery Method Room Air Weight: 125 lb 1.6 oz Body Mass Index (BMI) 20.8 Intake and Output for Last 24 Hours 12/09/19 12/10/19 12/11/19 23:59 23:59 23:59 Intake Total 1083.33 / 1133.33 1085 / 1085 Balance 1083.33 / 1133.33 1085 / 1085 General: Alert, Oriented x3, Cooperative, No apparent distress, Lethargic HEENT: Atraumatic, PERRLA, EOMI, Normocephalic Oral: Dry Mucosa Neck: Supple, No JVD, Negative Carotid Bruits Lungs: Clear to auscultation, Normal air movement, No rhonchi, No wheeze, - - on room air Cardiovascular: Regular rate, Regular Rhythm, Normal S1, Normal S2, No murmurs Abdomen: Bowel Sounds Present, Soft, Non Tender, Non-Distended, No Hepato- splenomegaly Extremities: No clubbing, No cyanosis, No edema, Capillary Refill Less than 3 Seconds Skin: No rashes, No breakdown Musculoskeletal: No Tenderness to Palpation of Joints or Extremities Lymphatic: No Cervical, Supraclavicular, or Inguinal Adenopathy Neurological: Cranial nerves II-XII grossly intact, Neuro grossly intact, Motor Exam 5/5 strength throughout Psych/Mental Status: Normal Affect, Appropriate, Alert and oriented to time, place, person, mood and affect Microbiology Past 72 Hours 12/10/19 16:45 Mucosa - Nose Respiratory Panel (PCR) - Preliminary Laboratory Results 12/10/19 16:40: WBC 2.1 L, RBC 3.58 L, Hgb 11.5 L, Hct 35.2 L, MCV 98.3, MCH 32.1 H, MCHC 32.7, RDW Std Deviation 46.5 H, RDW Coeff of Kaye 12.9, Plt Count 213, MPV 9.6, Immature Gran % (Auto) 1.400 H, Neut % (Auto) 71.5 H, Lymph % (Auto) 19.0, [place] % (Auto) 8.1, Eos % (Auto) 0.0, Baso % (Auto) 0.0, Absolute Neuts (auto) 1.5 L, Absolute Lymphs (auto) 0.40 L, Nucleated RBC % 0, Differential Comment SEE COMMENT, Diff Path Review May foll, Platelet Estimate ADEQUATE, RBC Morphology N CHROM, Anisocytosis RARE, Macrocytosis RARE, Ovalocytes RARE 12/10/19 16:40: Fibrinogen 552 H, D-Dimer Quant (PE/DVT) 4.33 H* 12/10/19 16:40: Sodium 140, Potassium 4.1, Chloride 110 H, Carbon Dioxide 23.0, Anion Gap 7, BUN 24 H, Creatinine 1.30 H, Estim Creat Clear Calc 30.54, Est GFR (MDRD) Af Amer 51 L, Est GFR (MDRD) Non-Af 42 L, BUN/Creatinine Ratio 18.5, Glucose 95, Calcium 8.6, Total Bilirubin 0.20, AST 55 H, ALT 33, Alkaline Phosphatase 66, Lactate Dehydrogenase 401 H, Total Creatine Kinase 95, Troponin I < 0.015, C-React Prot Ext Range 36.80 H, Total Protein 6.9, Albumin 2.8 L, Karen bulin 4.1, Albumin/Globulin Ratio 0.7 L 12/10/19 16:40: Lactic Acid 0.9 12/10/19 16:40: Magnesium 2.5, Iron 20 L, TIBC 234 L, Iron Saturation 8.5 L, Ferritin 346 H, Folate 15.40 12/10/19 17:30: Procalcitonin 0.15 H 12/10/19 17:30: Vitamin B12 Pending 12/11/19 06:35: WBC 2.1 L, RBC 3.45 L, Hgb 11.0 L, Hct 33.9 L, MCV 98.3, MCH 31.9, MCHC 32.4, RDW Std Deviation 47.1 H, RDW Coeff of Kaye 13.2, Plt Count 216, MPV 9.8, Immature Gran % (Auto) 0.500, Neut % (Auto) 56.7, Lymph % (Auto) 34.0, [place] % (Auto) 7.8, Eos % (Auto) 0.5, Baso % (Auto) 0.5, Absolute Neuts (auto) 1.2 L, Absolute Lymphs (auto) 0.70 L, Nucleated RBC % 0 12/11/19 06:35: Sodium Pending, Potassium Pending, Chloride Pending, Carbon Dioxide Pending, Anion Gap Pending, BUN Pending, Creatinine Pending, Est GFR (MDRD) Af Amer Pending, Est GFR (MDRD) Non-Af Pending, BUN/Creatinine Ratio Pending, Glucose Pending, Calcium Pending, Total Bilirubin Pending, AST Pending, ALT Pending, Alkaline Phosphatase Pending, Total Protein Pending, Albumin Pending Diagnostic Data Chest X-Ray 12/10/19 16:20 IMPRESSION: Emphysema without pneumonia or atelectasis. Electronically Signed: Andres Gray MD at 16:45 EDT Tel , Service support , Foot X-Ray 12/10/19 17:30 IMPRESSION: Evaluation of the first and second toes is limited by suboptimal positioning. No fracture or dislocation identified in the right foot. Mild degenerative changes at the first MTP joint with hallux valgus. Electronically Signed: Eusebio Pereira at 17:44 EDT Tel , Service support , Chest CTA 12/10/19 18:11 IMPRESSION: 1. No evidence of pulmonary embolus. 2. No aortic dissection or aneurysm. 3. Patchy groundglass pulmonary infiltrates. Findings are consistent but not diagnostic of COVID 19 pneumonia. 4. Mild right hilar and mediastinal lymphadenopathy. 5. Small hiatal hernia. Electronically Signed: Yogesh Vazquez DO at 18:56 EDT Tel [phone], Service support , Current Medications Acetaminophen (Acetaminophen 325 Mg Tablet) 650 mg PO Q6H PRN PRN PRN Reason: Pain Score 1-10/Temp > 100.7 F Last Admin: 12/10/19 21:04 Dose: 650 mg Documented by: Al Hydroxide/Mg Hydroxide (Mag Hydrox/Al Hydrox/Simeth 30 Ml Udc) 30 ml PO Q6H PRN PRN PRN Reason: Gastric Burning Albuterol Sulfate (Albuterol 2.5 Mg/3 Ml Vial.Neb.) 2.5 mg INHALATION Q2H PRN PRN PRN Reason: Dyspnea, wheezing Donepezil HCl (Donepezil Hcl 5 Mg Tablet) 5 mg PO QHS [facility] Last Admin: 12/10/19 21:05 Dose: 5 mg Documented by: Enoxaparin Sodium (Enoxaparin 60 Mg/0.6 Ml Syringe) 60 mg SC Q12 [facility] Last Admin: 12/10/19 21:04 Dose: 60 mg Documented by: Famotidine (Famotidine 20 Mg Tablet) 20 mg PO BID [facility] Last Admin: 12/10/19 21:05 Dose: 20 mg Documented by: Guaifenesin (Guaifenesin 10 Ml Udc (200mg/10ml)) 20 ml PO Q4H PRN PRN PRN Reason: COUGH Iopamidol (Contrast Allergy Safety Check) 0 ml IV X1 [facility] Last Admin: 12/10/19 19:17 Dose: Not Given Documented by: Melatonin (Melatonin 3 Mg Tablet) 3 mg PO QHS PRN PRN PRN Reason: INSOMNIA Last Admin: 12/10/19 21:05 Dose: 3 mg Documented by: Morphine Sulfate (Morphine 2 Mg/Ml Syringe) 2 mg IV Q3H PRN PRN PRN Reason: Pain Score 6-10 Nitroglycerin (Nitroglycerin (Inpatient Use) 0.4 Mg Tab.Subl) 0.4 mg SUBLINGUAL Q5M PRN PRN Reason: CARDIAC/CHEST PAIN Nutritional Formula (Lactose Free) (Ensure Enlive 120 Ml Liquid) 120 ml PO 4X/DAY MONA Ondansetron HCl (Ondansetron 4 Mg/2 Ml Vial) 4 mg IV Q8H PRN PRN PRN Reason: NAUSEA/VOMITING Oxycodone HCl (Oxycodone 5 Mg Tablet) 5 mg PO Q4H PRN PRN PRN Reason: Pain Score 4-5 Prochlorperazine Edisylate (Prochlorperazine 10 Mg/2 Ml Vial) 5 mg IV Q4H PRN PRN PRN Reason: Breakthrough nausea/vomiting Sodium Chloride (0.9% Saline Lock 10 Ml Syringe) 10 - 40 ml IV UD PRN PRN Reason: SALINE FLUSH Last Admin: 12/11/19 06:40 Dose: 10 ml Documented by: Throat Lozenges (Benzocaine/Menthol 1 Lozenge) 1 lozenge MUCOUS MEM Q2H PRN PRN PRN Reason: SORE THROAT Medical Necessity - Tobacco Use Smoking Status: Never smoker Tobacco Use: Non-smoker Assessment/Plan All Active Problems COVID-19 (Acute) Weakness (Acute) Encephalopathy acute (Acute) Leukopenia (Acute) Lymphopenia associated with COVID-19 (Acute) Dementia (Acute) Debility (Acute) # Acute metabolic encephalopathy due to covid 19 infection * encephalopathy has resolved, and she is alert and oriented today * covid test was positive * # COVID 19 infection * Patient is not feeling short of breath and denies any productive cough. She does have a fever of 99.3 Fahrenheit this morning. * continue IV dexamethasone. * Infectious disease consult-to see on Friday. Patient is currently stable so I do not think she will benefit from remdesivir. If his shortness of breath worsens, then will consider discussing with infectious disease of both starting remdesivir. * Breathing treatments with bronchodilators. #CKD stage III: Creatinine is down to 1.03. #Dementia: On Aricept #History of shingles: On valacyclovir. DVT prophylaxis: Lovenox Inpatient E&M: [id number] [facility] Hosp L2
[2019-12-11 07:55] LABS: ALB/GLOB Ratio 0.7 RATIO (0.9-2.4); AST(SGOT) 39 U/L (15-37); Alanine Aminotransfer ALT/SGPT 27 U/L (13-56); Albumin, Serum 2.5 g/dL (3.2-5.0); Alkaline Phosphatase 57 U/L (45-117); Anion Gap 8 (5-15); BUN 16 mg/dL (7-18); BUN/Creat Ratio 15.5 RATIO (10-20); Calcium,Total 7.9 mg/dL (8.5-10.1); Chloride 114 mmol/L (98-107); Creatinine, Serum 1.03 mg/dL (0.55-1.02); EST Glomerular Filtration Rate 55 mL/min (>60); Est Glom Filt Rate - Afr Amer 66 mL/min (>60); Estimated Creatinine Clearance 38.37 ml/min; Globulin 3.7 g/dL (2.2-4.2); Glucose 78 mg/dL (74-106); Potassium 3.9 mmol/L (3.5-5.1); Protein, Total 6.2 g/dL (6.4-8.2); Sodium Level 142 mmol/L (136-145)
[2019-12-11] MEDS: Famotidine 20 MG Tablet PO ×2 (10:21→20:58)
[2019-12-11] MEDS: Enoxaparin 60 MG/0.6 ML Syringe SC ×2 (10:21→20:58)
--- NOTE | 2019-12-11 13:07 | CM.UR ---
Patient + covid. Attempted to do assessment via phone however patient did not answer phone. Amira Gomez RN, CCM.
[2019-12-11] MEDS: Dextrose 5%/0.9% NaCl 1,000 ML 75 ML IV (15:39)
[2019-12-11] MEDS: guaiFENesin 10 ML UDC (200MG/10ML) 20 ML PO (15:42)
[2019-12-11] MEDS: Acetaminophen 325 MG Tablet 650 MG PO (15:44)
[2019-12-11 19:23] LABS: Mucous, Urine 0 SEEN /hpf (<or=2+); Squamous Epithelial Cells - UA 0 SEEN /hpf (5-10)
[2019-12-11 19:34] LABS: Color, Urine Yellow (Yellow); Glucose, Dipstick Normal (Normal); Ketone-Dipstick 50 mg/dl (Negative); Leukocyte Esterase-Dipstick Negative /ul (Negative); Nitrite-Dipstick Positive (Negative); Occult Blood-Urine 50 /ul (Negative); Protein-Dipstick 30 mg/dl (Negative); Specific Gravity, Urine 1.015 (1.002-1.030); Urine Bilirubin Dipstick Negative (Negative); Urine Clarity Clear (Clear); Urine Urobilinogen Normal (Normal)
[2019-12-11 20:10] LABS: Bacteria 2+ /hpf (None Seen); Red Blood Cells-Urine 0-5 SEEN /hpf (0-5); White Blood Cells 0-5 SEEN /hpf (0-5)
[2019-12-11] MEDS: Donepezil HCl 5 MG Tablet PO (20:57)
[2019-12-11] MEDS: MELATONIN 3 MG TABLET PO (23:10)
[2019-12-12] VITALS (10 sets, daily range): BP systolic 134–158; BP diastolic 68–93; PULSE 63–75; RESP 20–26; TEMP 36.1–37.8; O2SAT 91–97
[2019-12-12] MEDS: Dextrose 5%/0.9% NaCl 1,000 ML 75 ML IV ×2 (05:00→16:26)
[2019-12-12 07:02] LABS: Absolute Lymphocyte Count 0.64 X10^3/uL (0.83-4.51); Absolute Neutrophil Count 1.8 X10^3/uL (2.0-7.7); Basophil# 0.01 X10^3/uL; Basophil% 0.4 % (0-1); Eosinophil# 0.01 X10^3/uL; Eosinophils% 0.4 % (0-5); Hemoglobin 11.4 g/dL (12.0-15.0); Lymphocyte # 0.64 X10^3/ul (4.0); Lymphocyte % 24.9 % (19-41); Mean Corp Hgb Conc 31.7 g/dL (32-36); Mean Corpuscular Volume 97.8 fL (81-99); Mean Platelet Vol. 10.3 fl (6.2-12.0); Monocyte# 0.12 X10^3/uL; Monocyte% 4.7 % (0-10); NRBC Flagged by Analyzer 0 % (0-5); Neutrophil # 1.76 X10^3/uL (2.7-7.7); Neutrophil % 68.4 % (47-70); Platelet Count 227 K/mm3 (150-450); RBC Distribution Width CV 13.1 % (11.6-14.6); RBC Distribution Width SD 47.7 fl (35.1-43.9); Red Blood Count 3.68 M/mm3 (4.2-5.4); White Blood Count 2.6 K/mm3 (4.4-11.0)
[2019-12-12 07:17] LABS: Anion Gap 6 (5-15); BUN 13 mg/dL (7-18); BUN/Creat Ratio 13.4 RATIO (10-20); Calcium,Total 8.3 mg/dL (8.5-10.1); Chloride 113 mmol/L (98-107); Creatinine, Serum 0.97 mg/dL (0.55-1.02); EST Glomerular Filtration Rate 58 mL/min (>60); Est Glom Filt Rate - Afr Amer 71 mL/min (>60); Estimated Creatinine Clearance 40.75 ml/min; Glucose 126 mg/dL (74-106); Potassium 3.9 mmol/L (3.5-5.1); Sodium Level 141 mmol/L (136-145)
[2019-12-12] MEDS: Enoxaparin 60 MG/0.6 ML Syringe SC (08:55)
[2019-12-12] MEDS: Famotidine 20 MG Tablet PO ×2 (08:56→22:38)
--- NOTE | 2019-12-12 10:43 | PN_ITS ---
Patient Problems: Active and Suspected Problems COVID-19 (Acute) Weakness (Acute) Encephalopathy acute (Acute) Leukopenia (Acute) Lymphopenia associated with COVID-19 (Acute) Dementia (Acute) Debility (Acute) Subjective: Patient seen and examined. She is much more alert today and was using her incentive spirometer time I reviewed her. She was requiring 1 L of oxygen this morning she had no complaints and felt well. Review of systems otherwise negative. She has remained hemodynamically stable. Vitals/I&O's: Vital Signs Temp Pulse Resp BP Pulse Ox 99.7 F H 71 22 H 143/75 H 94 12/12/19 08:50 12/12/19 08:50 12/12/19 08:50 12/12/19 08:50 12/12/19 08:50 Oxygen Flow Rate (L/min) 1 Oxygen Delivery Method Nasal Cannula Weight: 125 lb 1.586 oz Body Mass Index (BMI) 20.8 Intake and Output for Last 24 Hours 12/10/19 12/11/19 12/12/19 23:59 23:59 23:59 Intake Total 1083.33 / 1133.33 1210 / 1410 1220 / 1220 Output Total 100 / 100 300 / 300 Balance 1083.33 / 1133.33 1110 / 1310 920 / 920 General: Alert, Oriented x3, Cooperative, No apparent distress HEENT: Atraumatic, PERRLA, EOMI, Normocephalic Oral: Dry Mucosa Neck: Supple, No JVD, Negative Carotid Bruits Lungs: Clear to auscultation, Normal air movement, No rhonchi, No wheeze, - - on 1L of oxygen Cardiovascular: Regular rate, Regular Rhythm, Normal S1, Normal S2, No murmurs Abdomen: Bowel Sounds Present, Soft, Non Tender, Non-Distended, No Hepato- splenomegaly Extremities: No clubbing, No cyanosis, No edema, Capillary Refill Less than 3 Seconds Skin: No rashes, No breakdown Musculoskeletal: No Tenderness to Palpation of Joints or Extremities Lymphatic: No Cervical, Supraclavicular, or Inguinal Adenopathy Neurological: Cranial nerves II-XII grossly intact, Neuro grossly intact, Motor Exam 5/5 strength throughout Psych/Mental Status: Normal Affect, Appropriate, Alert and oriented to time, place, person, mood and affect Microbiology Past 72 Hours 12/11/19 17:30 Urine Catheter - Catheter Legionella Antigen - Final 12/11/19 17:30 Urine Catheter - Catheter Streptococcus pneumoniae Antigen (M - Final 12/10/19 16:45 Mucosa - Nose Respiratory Panel (PCR) - Final Laboratory Results 12/11/19 17:30: Urine Color Yellow, Urine Clarity Clear, Urine pH 6.0, Ur Specific [place] 1.015, Urine Protein 30 H, Urine Glucose (UA) Normal, Urine Ketones 50 H, Urine Occult Blood 50 H, Urine Nitrite Positive H, Urine Bilirubin Negative, Urine Urobilinogen Normal, Ur Leukocyte Esterase Negative, Urine RBC 0-5 SEEN, Urine WBC 0-5 SEEN, Ur Squamous Epith Cells 0 SEEN, Urine Bacteria 2+, Urine Mucus 0 SEEN 12/12/19 05:15: WBC 2.6 L, RBC 3.68 L, Hgb 11.4 L, Hct 36.0 L, MCV 97.8, MCH 31.0, MCHC 31.7 L, RDW Std Deviation 47.7 H, RDW Coeff of Kaye 13.1, Plt Count 227, MPV 10.3, Immature Gran % (Auto) 1.200 H, Neut % (Auto) 68.4, Lymph % (Auto) 24.9, [place] % (Auto) 4.7, Eos % (Auto) 0.4, Baso % (Auto) 0.4, Absolute Neuts (auto) 1.8 L, Absolute Lymphs (auto) 0.64 L, Nucleated RBC % 0 12/12/19 05:15: Sodium 141, Potassium 3.9, Chloride 113 H, Carbon Dioxide 22.0, Anion Gap 6, BUN 13, Creatinine 0.97, Estim Creat Clear Calc 40.75, Est GFR (MDRD) Af Amer 71, Est GFR (MDRD) Non-Af 58 L, BUN/Creatinine Ratio 13.4, Glucose 126 H, Calcium 8.3 L Current Medications Acetaminophen (Acetaminophen 325 Mg Tablet) 650 mg PO Q6H PRN PRN PRN Reason: Pain Score 1-10/Temp > 100.7 F Last Admin: 12/11/19 15:44 Dose: 650 mg Documented by: Al Hydroxide/Mg Hydroxide (Mag Hydrox/Al Hydrox/Simeth 30 Ml Udc) 30 ml PO Q6H PRN PRN PRN Reason: Gastric Burning Albuterol Sulfate (Albuterol 2.5 Mg/3 Ml Vial.Neb.) 2.5 mg INHALATION Q2H PRN PRN PRN Reason: Dyspnea, wheezing Donepezil HCl (Donepezil Hcl 5 Mg Tablet) 5 mg PO QHS [facility] Last Admin: 12/11/19 20:57 Dose: 5 mg Documented by: Enoxaparin Sodium (Enoxaparin 60 Mg/0.6 Ml Syringe) 60 mg SC Q12 [facility] Last Admin: 12/12/19 08:55 Dose: 60 mg Documented by: Famotidine (Famotidine 20 Mg Tablet) 20 mg PO BID [facility] Last Admin: 12/12/19 08:56 Dose: 20 mg Documented by: Guaifenesin (Guaifenesin 10 Ml Udc (200mg/10ml)) 20 ml PO Q4H PRN PRN PRN Reason: COUGH Last Admin: 12/11/19 15:42 Dose: 20 ml Documented by: Dextrose/Sodium Chloride (Dextrose 5%/0.9% Nacl) 1,000 mls @ 75 mls/hr IV .[id number] [facility] Last Admin: 12/12/19 05:00 Dose: 75 mls/hr Documented by: Melatonin (Melatonin 3 Mg Tablet) 3 mg PO QHS PRN PRN PRN Reason: INSOMNIA Last Admin: 12/11/19 23:10 Dose: 3 mg Documented by: Morphine Sulfate (Morphine 2 Mg/Ml Syringe) 2 mg IV Q3H PRN PRN PRN Reason: Pain Score 6-10 Nitroglycerin (Nitroglycerin (Inpatient Use) 0.4 Mg Tab.Subl) 0.4 mg SUBLINGUAL Q5M PRN PRN Reason: CARDIAC/CHEST PAIN Nutritional Formula (Lactose Free) (Ensure Enlive 120 Ml Liquid) 120 ml PO 4X/DAY [facility] Last Admin: 12/12/19 08:56 Dose: 120 ml Documented by: Ondansetron HCl (Ondansetron 4 Mg/2 Ml Vial) 4 mg IV Q8H PRN PRN PRN Reason: NAUSEA/VOMITING Oxycodone HCl (Oxycodone 5 Mg Tablet) 5 mg PO Q4H PRN PRN PRN Reason: Pain Score 4-5 Prochlorperazine Edisylate (Prochlorperazine 10 Mg/2 Ml Vial) 5 mg IV Q4H PRN PRN PRN Reason: Breakthrough nausea/vomiting Sodium Chloride (0.9% Saline Lock 10 Ml Syringe) 10 - 40 ml IV UD PRN PRN Reason: SALINE FLUSH Last Admin: 12/11/19 06:40 Dose: 10 ml Documented by: Throat Lozenges (Benzocaine/Menthol 1 Lozenge) 1 lozenge MUCOUS MEM Q2H PRN PRN PRN Reason: SORE THROAT STROKE Vital Signs/Narrative: Vital Signs Temp Pulse Resp BP Pulse Ox 12/12/19 08:50 99.7 F H 71 22 H 143/75 H 94 Medical Necessity - Tobacco Use Smoking Status: Never smoker Tobacco Use: Non-smoker Assessment/Plan All Active Problems COVID-19 (Acute) Weakness (Acute) Encephalopathy acute (Acute) Leukopenia (Acute) Lymphopenia associated with COVID-19 (Acute) Dementia (Acute) Debility (Acute) # Acute metabolic encephalopathy due to covid 19 infection * encephalopathy has resolved, and she is alert and oriented today * covid test was positive * # COVID 19 infection * patient now on 1L of oxygen, and remains mildly tachypneic. She also has a low grade fever. * continue IV dexamethasone. * Infectious disease consult-to see on Friday. * Breathing treatments with bronchodilators. * titrate oxygen to maintain sats >90% #CKD stage III: Cr is 0.97 today #Dementia: On Aricept #History of shingles: On valacyclovir. DVT prophylaxis: on therapeutic Lovenox. CTA of chest was negative for PE. Will therefore switch to lovenox 30mg bid Inpatient E&M: [id number] [facility] Hosp L2
--- NOTE | 2019-12-12 11:49 | NURSING ---
At 0930, pt was able to use the Incentive Spirometer, 10reps. Physical therapy/OT in to see pt and get her up in chair. Personal chair alarm on. Pt only sat approximately 20min and then put herself to bed before staff could get in there.
--- NOTE | 2019-12-12 13:38 | NURSING ---
Pt refused to get in chair, sit to my stomach. This nurse going to give pt zofran. Pt also spo2 checked, 88% on RA. Reapplied oxygen, see interventions. Pt has chills. temp 99.2
[2019-12-12] MEDS: Ondansetron 4 MG/2 ML Vial IV (13:44)
[2019-12-12] MEDS: 0.9% Saline Lock 10 ML Syringe IV (13:44)
[2019-12-12] MEDS: Donepezil HCl 5 MG Tablet PO (22:38)
[2019-12-12] MEDS: Enoxaparin 30 MG/0.3 ML Syringe SC (22:38)
[2019-12-12] MEDS: Acetaminophen 325 MG Tablet 650 MG PO (22:41)
[2019-12-13] VITALS (8 sets, daily range): BP systolic 136–164; BP diastolic 72–85; PULSE 61–74; RESP 16–20; TEMP 35.9–37.1; O2SAT 88–98
[2019-12-13] MEDS: oxyCODONE 5 MG Tablet PO (03:13)
[2019-12-13 05:34] LABS: Absolute Lymphocyte Count 0.62 X10^3/uL (0.83-4.51); Absolute Neutrophil Count 2.1 X10^3/uL (2.0-7.7); Basophil# 0.01 X10^3/uL; Basophil% 0.3 % (0-1); Eosinophil# 0.01 X10^3/uL; Eosinophils% 0.3 % (0-5); Hemoglobin 10.3 g/dL (12.0-15.0); Lymphocyte # 0.62 X10^3/ul (4.0); Lymphocyte % 20.9 % (19-41); Mean Corp Hgb Conc 32.2 g/dL (32-36); Mean Corpuscular Hgb 31.9 pg (27.0-32.0); Mean Corpuscular Volume 99.1 fL (81-99); Mean Platelet Vol. 9.7 fl (6.2-12.0); Monocyte# 0.14 X10^3/uL; Monocyte% 4.7 % (0-10); NRBC Flagged by Analyzer 0 % (0-5); Neutrophil # 2.14 X10^3/uL (2.7-7.7); Neutrophil % 72.4 % (47-70); Platelet Count 228 K/mm3 (150-450); RBC Distribution Width CV 13.1 % (11.6-14.6); Red Blood Count 3.23 M/mm3 (4.2-5.4)
[2019-12-13] MEDS: Dextrose 5%/0.9% NaCl 1,000 ML 75 ML IV ×2 (05:40→18:19)
[2019-12-13] MEDS: Acetaminophen 325 MG Tablet 650 MG PO ×2 (05:45→16:04)
[2019-12-13 06:01] LABS: Anion Gap 6 (5-15); BUN 11 mg/dL (7-18); BUN/Creat Ratio 14.7 RATIO (10-20); Calcium,Total 8.1 mg/dL (8.5-10.1); Chloride 114 mmol/L (98-107); Creatinine, Serum 0.75 mg/dL (0.55-1.02); EST Glomerular Filtration Rate 79 mL/min (>60); Est Glom Filt Rate - Afr Amer 95 mL/min (>60); Estimated Creatinine Clearance 39.52 ml/min; Glucose 107 mg/dL (74-106); Potassium 3.5 mmol/L (3.5-5.1); Sodium Level 144 mmol/L (136-145)
[2019-12-13] MEDS: Famotidine 20 MG Tablet PO ×2 (10:04→20:42)
[2019-12-13] MEDS: Enoxaparin 30 MG/0.3 ML Syringe SC ×2 (10:04→20:42)
--- NOTE | 2019-12-13 13:36 | PN_ITS ---
Patient Problems: Active and Suspected Problems COVID-19 (Acute) Weakness (Acute) Encephalopathy acute (Acute) Leukopenia (Acute) Lymphopenia associated with COVID-19 (Acute) Dementia (Acute) Debility (Acute) Reason for Visit: COVID-19 Subjective: complains of headache and malaise. Vitals/I&O's: Vital Signs Temp Pulse Resp BP Pulse Ox 36.6 C 64 18 148/74 H 94 12/13/19 09:58 12/13/19 09:58 12/13/19 09:58 12/13/19 09:58 12/13/19 12:10 Oxygen Flow Rate (L/min) 2 Oxygen Delivery Method Nasal Cannula Weight: 56.744 kg Body Mass Index (BMI) 20.8 Intake and Output for Last 24 Hours 12/11/19 12/12/19 12/13/19 23:59 23:59 23:59 Intake Total 1210 / 1410 2437.5 / 2637.5 1362.5 / 1362.5 Output Total 100 / 100 900 / 1100 700 / 700 Balance 1110 / 1310 1537.5 / 1537.5 662.5 / 662.5 General: Alert, No apparent distress HEENT: Atraumatic, Normocephalic Oral: Moist Mucosa, No Gingival or Mucosal Lesions/ Ulcerations Neck: No Nodes, Thyroid Normal Size and Texture Lungs: Normal air movement, - - coarse breath sounds Cardiovascular: Regular rate, Regular Rhythm, Normal S1, Normal S2, No murmurs Abdomen: Bowel Sounds Present, Soft, Non Tender, Non-Distended, No Hepato- splenomegaly Extremities: No edema, No Calf Tenderness Skin: No rashes, No breakdown Musculoskeletal: No Tenderness to Palpation of Joints or Extremities Psych/Mental Status: Normal Affect, Appropriate Microbiology Past 72 Hours 12/10/19 16:40 Blood Culture (Wb) - Right Hand Blood Culture - Preliminary No growth in 48 hours. 12/10/19 16:20 Blood Culture (Wb) - No Site/Description Given Blood Culture - Preliminary No growth in 48 hours. 12/11/19 17:30 Urine Catheter - Catheter Legionella Antigen - Final 12/11/19 17:30 Urine Catheter - Catheter Streptococcus pneumoniae Antigen (M - Final 12/10/19 16:45 Mucosa - Nose Respiratory Panel (PCR) - Final Laboratory Results 12/13/19 05:02: WBC 3.0 L, RBC 3.23 L, Hgb 10.3 L, Hct 32.0 L, MCV 99.1 H, MCH 31.9, MCHC 32.2, RDW Std Deviation 47.0 H, RDW Coeff of Kaye 13.1, Plt Count 228, MPV 9.7, Immature Gran % (Auto) 1.400 H, Neut % (Auto) 72.4 H, Lymph % (Auto) 20.9, [place] % (Auto) 4.7, Eos % (Auto) 0.3, Baso % (Auto) 0.3, Absolute Neuts (auto) 2.1, Absolute Lymphs (auto) 0.62 L, Nucleated RBC % 0 12/13/19 05:02: Sodium 144, Potassium 3.5, Chloride 114 H, Carbon Dioxide 24.0, Anion Gap 6, BUN 11, Creatinine 0.75, Estim Creat Clear Calc 39.52, Est GFR (MDRD) Af Amer 95, Est GFR (MDRD) Non-Af 79, BUN/Creatinine Ratio 14.7, Glucose 107 H, Calcium 8.1 L Current Medications Acetaminophen (Acetaminophen 325 Mg Tablet) 650 mg PO Q6H PRN PRN PRN Reason: Pain Score 1-10/Temp > 100.7 F Last Admin: 12/13/19 05:45 Dose: 650 mg Documented by: Al Hydroxide/Mg Hydroxide (Mag Hydrox/Al Hydrox/Simeth 30 Ml Udc) 30 ml PO Q6H PRN PRN PRN Reason: Gastric Burning Albuterol Sulfate (Albuterol 2.5 Mg/3 Ml Vial.Neb.) 2.5 mg INHALATION Q2H PRN PRN PRN Reason: Dyspnea, wheezing Donepezil HCl (Donepezil Hcl 5 Mg Tablet) 5 mg PO QHS [facility] Last Admin: 12/12/19 22:38 Dose: 5 mg Documented by: Enoxaparin Sodium (Enoxaparin 30 Mg/0.3 Ml Syringe) 30 mg SC BID [facility] Last Admin: 12/13/19 10:04 Dose: 30 mg Documented by: Famotidine (Famotidine 20 Mg Tablet) 20 mg PO BID [facility] Last Admin: 12/13/19 10:04 Dose: 20 mg Documented by: Guaifenesin (Guaifenesin 10 Ml Udc (200mg/10ml)) 20 ml PO Q4H PRN PRN PRN Reason: COUGH Last Admin: 12/11/19 15:42 Dose: 20 ml Documented by: Dextrose/Sodium Chloride (Dextrose 5%/0.9% Nacl) 1,000 mls @ 75 mls/hr IV .[id number] [facility] Last Admin: 12/13/19 05:40 Dose: 75 mls/hr Documented by: Melatonin (Melatonin 3 Mg Tablet) 3 mg PO QHS PRN PRN PRN Reason: INSOMNIA Last Admin: 12/11/19 23:10 Dose: 3 mg Documented by: Nitroglycerin (Nitroglycerin (Inpatient Use) 0.4 Mg Tab.Subl) 0.4 mg SUBLINGUAL Q5M PRN PRN Reason: CARDIAC/CHEST PAIN Nutritional Formula (Lactose Free) (Ensure Enlive 120 Ml Liquid) 120 ml PO 4X/DAY [facility] Last Admin: 12/13/19 13:24 Dose: Not Given Documented by: Ondansetron HCl (Ondansetron 4 Mg/2 Ml Vial) 4 mg IV Q8H PRN PRN PRN Reason: NAUSEA/VOMITING Last Admin: 12/12/19 13:44 Dose: 4 mg Documented by: Oxycodone HCl (Oxycodone 5 Mg Tablet) 5 mg PO Q4H PRN PRN PRN Reason: Pain Score 4-5 Last Admin: 12/13/19 03:13 Dose: 5 mg Documented by: Prochlorperazine Edisylate (Prochlorperazine 10 Mg/2 Ml Vial) 5 mg IV Q4H PRN PRN PRN Reason: Breakthrough nausea/vomiting Sodium Chloride (0.9% Saline Lock 10 Ml Syringe) 10 - 40 ml IV UD PRN PRN Reason: SALINE FLUSH Last Admin: 12/12/19 13:44 Dose: 10 ml Documented by: Throat Lozenges (Benzocaine/Menthol 1 Lozenge) 1 lozenge MUCOUS MEM Q2H PRN PRN PRN Reason: SORE THROAT STROKE Vital Signs/Narrative: Vital Signs Temp Pulse Resp BP Pulse Ox 12/13/19 12:10 94 12/13/19 09:58 36.6 C 64 18 148/74 H 93 Medical Necessity - Tobacco Use Smoking Status: Never smoker Tobacco Use: Non-smoker Assessment/Plan All Active Problems COVID-19 (Acute) Weakness (Acute) Encephalopathy acute (Acute) Leukopenia (Acute) Lymphopenia associated with COVID-19 (Acute) Dementia (Acute) Debility (Acute) 1. acute COVID-19 infection * CTA showed diffuse GGO * review of records does not show that the patient was ever on dexamethasone (prior physician's documentation noted) * given the findings on CTA, will initiate PO dexamethasone * no consult placed to ID (prior physician's documentation noted). Given hemodynamic stability, will hold on formal consult for now. * wean oxygen as tolerated. Check ambulatory pulse ox prior to DC 2. migraine * supportive mgmt * will give dexamethasone for COVID-19, which can hopefully help 3. VTE prophylaxis: LMWH Inpatient E&M: 85560 Subs Hosp L2
[2019-12-13 13:54] LABS: Pathologist Review Reviewed
--- NOTE | 2019-12-13 14:25 | CASEMGMT ---
RN CM called for initial transition planning/care coordination assessment. RN CM introduced self and role at [facility]. Patient has demenita. Daughter, Elsa, willing to participate in assessment and is able to answer all questions appropriately. Care providers, pharmacy, and demographics verified. Elsa wishes for patient to discharge home but is will for patient to go to SNF if needed. Will monitor progress with therapy. Daughter states she has no further needs or concerns at this time. CM to follow for discharge planning needs that may arise. PCP: [facility] Specialists: [facility] Preferred Pharmacy: [facility], agreeable to [facility] at discharge. Insurance: [employer] [facility] Prescription Benefit: yes Living Will/HPOA: yes, HPOA daughter Elsa Frontz LNOK: Daughter Living Arrangements: Patient lives alone in a mobile home with 4 steps and railing to enter the home. Patient is normally independent at home. Transportation: Daughter DME/HHC: Patient does not have any DME or previous HHC or SNF Disposition Plan: TBD by course of treatment and progress with therapy. Saumya ANDERSON, RN, CM
[2019-12-13] MEDS: dexAMETHasone 4 MG Tablet 6 MG PO (15:59)
[2019-12-13 20:27] LABS: Vitamin B12 709 pg/mL (211-911)
[2019-12-13] MEDS: Donepezil HCl 5 MG Tablet PO (20:42)
[2019-12-13] MEDS: guaiFENesin 10 ML UDC (200MG/10ML) 20 ML PO (23:47)
[2019-12-14 01:57] VITALS: BP 164/76; PULSE 61; RESP 24; TEMP 36.6; O2SAT 96
[2019-12-14 06:13] LABS: Absolute Lymphocyte Count 0.36 X10^3/uL (0.83-4.51); Absolute Neutrophil Count 1.9 X10^3/uL (2.0-7.7); Basophil# 0.01 X10^3/uL; Basophil% 0.4 % (0-1); Hemoglobin 11.2 g/dL (12.0-15.0); Lymphocyte # 0.36 X10^3/ul (4.0); Lymphocyte % 14.9 % (19-41); Mean Corpuscular Hgb 31.6 pg (27.0-32.0); Mean Corpuscular Volume 98.9 fL (81-99); Mean Platelet Vol. 9.8 fl (6.2-12.0); Monocyte% 4.1 % (0-10); NRBC Flagged by Analyzer 0 % (0-5); Neutrophil # 1.92 X10^3/uL (2.7-7.7); Neutrophil % 79.8 % (47-70); POSITIVE DIFFERENTIAL YES; POSITIVE MORPHOLOGY YES; Platelet Count 265 K/mm3 (150-450); Red Blood Count 3.54 M/mm3 (4.2-5.4); White Blood Count 2.4 K/mm3 (4.4-11.0)
[2019-12-14 06:29] LABS: Differential Indicated SCAN CRITERIA MET
[2019-12-14 06:39] LABS: Anion Gap 5 (5-15); BUN 10 mg/dL (7-18); BUN/Creat Ratio 12.9 RATIO (10-20); Calcium,Total 8.6 mg/dL (8.5-10.1); Chloride 114 mmol/L (98-107); Creatinine, Serum 0.78 mg/dL (0.55-1.02); EST Glomerular Filtration Rate 75 mL/min (>60); Est Glom Filt Rate - Afr Amer 91 mL/min (>60); Estimated Creatinine Clearance 39.52 ml/min; Glucose 151 mg/dL (74-106); Magnesium 1.8 mg/dL (1.6-2.6); Potassium 4.1 mmol/L (3.5-5.1); Sodium Level 143 mmol/L (136-145)
[2019-12-14 07:35] LABS: Atypical Lymphocyte RARE %
[2019-12-14 07:47] VITALS: O2SAT 95
[2019-12-14 08:00] VITALS: BP 161/82; PULSE 72; RESP 20; TEMP 36.3; O2SAT 92
[2019-12-14] MEDS: Famotidine 20 MG Tablet PO ×2 (08:04→20:59)
[2019-12-14] MEDS: Enoxaparin 30 MG/0.3 ML Syringe SC ×2 (08:04→20:59)
[2019-12-14] MEDS: dexAMETHasone 4 MG Tablet 6 MG PO (08:04)
[2019-12-14] MEDS: Dextrose 5%/0.9% NaCl 1,000 ML 75 ML IV ×2 (08:05→21:05)
--- NOTE | 2019-12-14 12:43 | PN_ITS ---
Patient Problems: Active and Suspected Problems COVID-19 (Acute) Weakness (Acute) Encephalopathy acute (Acute) Leukopenia (Acute) Lymphopenia associated with COVID-19 (Acute) Dementia (Acute) Debility (Acute) Reason for Visit: COVID 19 Subjective: Short of breath. Vitals/I&O's: Vital Signs Temp Pulse Resp BP Pulse Ox 36.3 C L 72 20 H 161/82 H 92 12/14/19 08:00 12/14/19 08:00 12/14/19 08:00 12/14/19 08:00 12/14/19 08:00 Oxygen Flow Rate (L/min) 3 Oxygen Delivery Method Nasal Cannula Weight: 56.744 kg Body Mass Index (BMI) 20.8 Intake and Output for Last 24 Hours 12/12/19 12/13/19 12/14/19 23:59 23:59 23:59 Intake Total 2437.5 / 2637.5 2411.25 / 2661.25 1250 / 1250 Output Total 900 / 1100 1100 / 1200 500 / 500 Balance 1537.5 / 1537.5 1311.25 / 1461.25 750 / 750 General: Alert, No apparent distress HEENT: Atraumatic, Normocephalic Oral: Moist Mucosa, No Gingival or Mucosal Lesions/ Ulcerations Neck: No Nodes, Thyroid Normal Size and Texture Lungs: Clear to auscultation, Normal air movement, No rhonchi, No wheeze Cardiovascular: Regular rate, Regular Rhythm, Normal S1, Normal S2, No murmurs Abdomen: Bowel Sounds Present, Soft, Non Tender, Non-Distended Extremities: No edema, No Calf Tenderness Psych/Mental Status: Normal Affect, Appropriate Microbiology Past 72 Hours 12/10/19 16:40 Blood Culture (Wb) - Right Hand Blood Culture - Preliminary No growth in 48 hours. 12/10/19 16:20 Blood Culture (Wb) - No Site/Description Given Blood Culture - Preliminary No growth in 48 hours. 12/11/19 17:30 Urine Catheter - Catheter Legionella Antigen - Final 12/11/19 17:30 Urine Catheter - Catheter Streptococcus pneumoniae Antigen (M - Final 12/10/19 16:45 Mucosa - Nose Respiratory Panel (PCR) - Final Laboratory Results 12/10/19 16:40: Diff Path Review Reviewed 12/10/19 17:30: Vitamin B12 709 12/14/19 05:44: WBC 2.4 L, RBC 3.54 L, Hgb 11.2 L, Hct 35.0 L, MCV 98.9, MCH 31.6, MCHC 32.0, RDW Std Deviation 47.0 H, RDW Coeff of Kaye 13.0, Plt Count 265, MPV 9.8, Immature Gran % (Auto) 0.800, Neut % (Auto) 79.8 H, Lymph % (Auto) 14.9 L, [place] % (Auto) 4.1, Eos % (Auto) 0.0, Baso % (Auto) 0.4, Absolute Neuts (auto) 1.9 L, Absolute Lymphs (auto) 0.36 L, Nucleated RBC % 0, Atypical Lymphocytes RARE 12/14/19 05:44: Sodium 143, Potassium 4.1, Chloride 114 H, Carbon Dioxide 24.0, Anion Gap 5, BUN 10, Creatinine 0.78, Estim Creat Clear Calc 39.52, Est GFR (MDRD) Af Amer 91, Est GFR (MDRD) Non-Af 75, BUN/Creatinine Ratio 12.9, Glucose 151 H, Calcium 8.6, Magnesium 1.8 Current Medications Acetaminophen (Acetaminophen 325 Mg Tablet) 650 mg PO Q6H PRN PRN PRN Reason: Pain Score 1-10/Temp > 100.7 F Last Admin: 12/13/19 16:04 Dose: 650 mg Documented by: Al Hydroxide/Mg Hydroxide (Mag Hydrox/Al Hydrox/Simeth 30 Ml Udc) 30 ml PO Q6H PRN PRN PRN Reason: Gastric Burning Albuterol Sulfate (Albuterol 2.5 Mg/3 Ml Vial.Neb.) 2.5 mg INHALATION Q2H PRN PRN PRN Reason: Dyspnea, wheezing Dexamethasone (Dexamethasone 4 Mg Tablet) 6 mg PO DAILY@0800 [facility] Stop: 12/23/19 08:01 Last Admin: 12/14/19 08:04 Dose: 6 mg Documented by: Donepezil HCl (Donepezil Hcl 5 Mg Tablet) 5 mg PO QHS [facility] Last Admin: 12/13/19 20:42 Dose: 5 mg Documented by: Enoxaparin Sodium (Enoxaparin 30 Mg/0.3 Ml Syringe) 30 mg SC BID [facility] Last Admin: 12/14/19 08:04 Dose: 30 mg Documented by: Famotidine (Famotidine 20 Mg Tablet) 20 mg PO BID [facility] Last Admin: 12/14/19 08:04 Dose: 20 mg Documented by: Guaifenesin (Guaifenesin 10 Ml Udc (200mg/10ml)) 20 ml PO Q4H PRN PRN PRN Reason: COUGH Last Admin: 12/13/19 23:47 Dose: 20 ml Documented by: Dextrose/Sodium Chloride (Dextrose 5%/0.9% Nacl) 1,000 mls @ 75 mls/hr IV .[id number] [facility] Last Admin: 12/14/19 08:05 Dose: 75 mls/hr Documented by: Melatonin (Melatonin 3 Mg Tablet) 3 mg PO QHS PRN PRN PRN Reason: INSOMNIA Last Admin: 12/11/19 23:10 Dose: 3 mg Documented by: Nitroglycerin (Nitroglycerin (Inpatient Use) 0.4 Mg Tab.Subl) 0.4 mg SUBLINGUAL Q5M PRN PRN Reason: CARDIAC/CHEST PAIN Nutritional Formula (Lactose Free) (Ensure Enlive 120 Ml Liquid) 120 ml PO 4X/DAY [facility] Last Admin: 12/14/19 08:04 Dose: 120 ml Documented by: Ondansetron HCl (Ondansetron 4 Mg/2 Ml Vial) 4 mg IV Q8H PRN PRN PRN Reason: NAUSEA/VOMITING Last Admin: 12/12/19 13:44 Dose: 4 mg Documented by: Oxycodone HCl (Oxycodone 5 Mg Tablet) 5 mg PO Q4H PRN PRN PRN Reason: Pain Score 4-5 Last Admin: 12/13/19 03:13 Dose: 5 mg Documented by: Prochlorperazine Edisylate (Prochlorperazine 10 Mg/2 Ml Vial) 5 mg IV Q4H PRN PRN PRN Reason: Breakthrough nausea/vomiting Sodium Chloride (0.9% Saline Lock 10 Ml Syringe) 10 - 40 ml IV UD PRN PRN Reason: SALINE FLUSH Last Admin: 12/12/19 13:44 Dose: 10 ml Documented by: Throat Lozenges (Benzocaine/Menthol 1 Lozenge) 1 lozenge MUCOUS MEM Q2H PRN PRN PRN Reason: SORE THROAT Medical Necessity - Tobacco Use Smoking Status: Never smoker Tobacco Use: Non-smoker Assessment/Plan All Active Problems COVID-19 (Acute) Weakness (Acute) Encephalopathy acute (Acute) Leukopenia (Acute) Lymphopenia associated with COVID-19 (Acute) Dementia (Acute) Debility (Acute) 1. acute COVID-19 infection * CTA showed diffuse GGO * review of records does not show that the patient was ever on dexamethasone (prior physician's documentation noted) * given the findings on CTA, will initiate PO dexamethasone * no consult placed to ID (prior physician's documentation noted). Given hemodynamic stability, will hold on formal consult for now. * wean oxygen as tolerated. Check ambulatory pulse ox prior to DC 2. migraine * supportive mgmt * will give dexamethasone for COVID-19, which can hopefully help 3. VTE prophylaxis: LMWH 4. Disposition: home v SNF. awaiting input from DES. Inpatient E&M: [id number] Subs Hosp L2
[2019-12-14 14:00] VITALS: BP 155/48; PULSE 69; RESP 20; TEMP 36.5; O2SAT 95
--- NOTE | 2019-12-14 14:12 | CASEMGMT ---
RN CM Note: Per physician, pt is able to dc, however PT/OT has not seen patient yet. Osman GONZALEZN RN ACM
--- NOTE | 2019-12-14 15:24 | CHAPLAIN ---
Type of Pastoral Visit ___ Initial Visit ___ Follow-up Visit ___ On-call Visit ___ General Patient Visit ___ Spiritual Assessment ___ Family Conference ___ Bereavement ___ Rapid Response ___ Code Blue _x__ Other (describe below) Pastoral Care Referral From ___ Patient ___ Family ___ Nurse ___ Physician ___ Nursing Professor ___ Waste Management Recycling Technician _x__ Other (describe below) Sacrament/Intervention ___ Active listening ___ Anointing ___ Jain ___ Bereavement ___ Communion ___ Brenda exploration ___ ___ Life review ___ Prayer ___ Reconciliation ___ Sacrament of Sick ___ Supportive presence ___ Wedding _x Pastoral Comments two attempts made to contact this patient by phone into her room; pt was not able to answer the phone and thus visit did not occur
[2019-12-14 15:35] VITALS: O2SAT 95
[2019-12-14] MEDS: Acetaminophen 325 MG Tablet 650 MG PO (20:58)
[2019-12-14] MEDS: oxyCODONE 5 MG Tablet PO (20:58)
[2019-12-14] MEDS: guaiFENesin 10 ML UDC (200MG/10ML) 20 ML PO (20:58)
[2019-12-14] MEDS: Donepezil HCl 5 MG Tablet PO (20:59)
[2019-12-14] MEDS: MELATONIN 3 MG TABLET PO (20:59)
[2019-12-14 21:04] VITALS: BP 157/84; PULSE 67; RESP 18; TEMP 36.9; O2SAT 93
[2019-12-15] VITALS (10 sets, daily range): BP systolic 112–161; BP diastolic 62–87; PULSE 62–75; RESP 16–22; TEMP 36.1–36.6; O2SAT 73–96
--- NOTE | 2019-12-15 05:45 | NURSING ---
pt setting off bedexit staff called into room and asked pt to wait for staff to come in, pt did not wait went out end of bed and sat down on floor and was incontinent. pt oriented to self only, no injury, assisted to bsc voided, bath given new gown and linen on with assist of vehicle operator technician. vs wnl. will dr notified. bed exit on. pt continues to refuse iv restart, fed fluids and applesauce
[2019-12-15] MEDS: dexAMETHasone 4 MG Tablet 6 MG PO (08:54)
[2019-12-15] MEDS: Enoxaparin 30 MG/0.3 ML Syringe SC (09:41)
[2019-12-15] MEDS: Famotidine 20 MG Tablet PO (09:42)
[2019-12-15] MEDS: Mag Hydrox/Al Hydrox/Simeth 30 ML UDC PO (09:54)
[2019-12-15] MEDS: Acetaminophen 325 MG Tablet 650 MG PO (09:54)
[2019-12-15] MEDS: Oxymetazoline 0.05% 1 SPRAY SPRAY.BTL 2 SPRAY NASAL (12:53)
[2019-12-15] MEDS: oxyCODONE 5 MG Tablet PO ×2 (13:43→18:50)
--- NOTE | 2019-12-15 13:59 | PN_ITS ---
Patient Problems: Active and Suspected Problems COVID-19 (Acute) Weakness (Acute) Encephalopathy acute (Acute) Leukopenia (Acute) Lymphopenia associated with COVID-19 (Acute) Dementia (Acute) Debility (Acute) Reason for Visit: COVID-19 Subjective: no new complaints. After I left she developed epistaxis. I ordered Afrin and compression. Vitals/I&O's: Vital Signs Temp Pulse Resp BP Pulse Ox 36.1 C L 67 18 157/87 H 96 12/15/19 09:45 12/15/19 09:45 12/15/19 09:45 12/15/19 09:45 12/15/19 12:09 Oxygen Flow Rate (L/min) 5 Oxygen Delivery Method Nasal Cannula Weight: 56.744 kg Body Mass Index (BMI) 20.8 Intake and Output for Last 24 Hours 12/13/19 12/14/19 12/15/19 23:59 23:59 23:59 Intake Total 2411.25 / 2661.25 2225 / 2225 687.5 / 687.5 Output Total 1100 / 1200 500 / 500 Balance 1311.25 / 1461.25 1725 / 1725 687.5 / 687.5 General: Alert, No apparent distress HEENT: Atraumatic, Normocephalic Neck: No Nodes, Thyroid Normal Size and Texture Lungs: Clear to auscultation, Normal air movement, No rhonchi, No wheeze Cardiovascular: Regular rate, Regular Rhythm, Normal S1, Normal S2, No murmurs Abdomen: Bowel Sounds Present, Soft, Non Tender, Non-Distended, No Hepato- splenomegaly Extremities: No edema, No Calf Tenderness Skin: No rashes, No breakdown Musculoskeletal: Cachexia, Muscle Wasting Microbiology Past 72 Hours 12/10/19 16:40 Blood Culture (Wb) - Right Hand Blood Culture - Preliminary No growth in 48 hours. 12/10/19 16:20 Blood Culture (Wb) - No Site/Description Given Blood Culture - Preliminary No growth in 48 hours. Current Medications Acetaminophen (Acetaminophen 325 Mg Tablet) 650 mg PO Q6H PRN PRN PRN Reason: Pain Score 1-10/Temp > 100.7 F Last Admin: 12/15/19 09:54 Dose: 650 mg Documented by: Al Hydroxide/Mg Hydroxide (Mag Hydrox/Al Hydrox/Simeth 30 Ml Udc) 30 ml PO Q6H PRN PRN PRN Reason: Gastric Burning Last Admin: 12/15/19 09:54 Dose: 30 ml Documented by: Albuterol Sulfate (Albuterol 2.5 Mg/3 Ml Vial.Neb.) 2.5 mg INHALATION Q2H PRN PRN PRN Reason: Dyspnea, wheezing Dexamethasone (Dexamethasone 4 Mg Tablet) 6 mg PO DAILY@0800 COUNTS INCLUDE 234 BEDS AT THE [facility] Stop: 12/23/19 08:01 Last Admin: 12/15/19 08:54 Dose: 6 mg Documented by: Donepezil HCl (Donepezil Hcl 5 Mg Tablet) 5 mg PO QHS COUNTS INCLUDE 234 BEDS AT THE [facility] Last Admin: 12/14/19 20:59 Dose: 5 mg Documented by: Famotidine (Famotidine 20 Mg Tablet) 20 mg PO BID COUNTS INCLUDE 234 BEDS AT THE [facility] Last Admin: 12/15/19 09:42 Dose: 20 mg Documented by: Guaifenesin (Guaifenesin 10 Ml Udc (200mg/10ml)) 20 ml PO Q4H PRN PRN PRN Reason: COUGH Last Admin: 12/14/19 20:58 Dose: 20 ml Documented by: Dextrose/Sodium Chloride (Dextrose 5%/0.9% Nacl) 1,000 mls @ 75 mls/hr IV .[id number] COUNTS INCLUDE 234 BEDS AT THE [facility] Last Infusion: 12/15/19 02:15 Dose: 0 mls/hr Documented by: Melatonin (Melatonin 3 Mg Tablet) 3 mg PO QHS PRN PRN PRN Reason: INSOMNIA Last Admin: 12/14/19 20:59 Dose: 3 mg Documented by: Nitroglycerin (Nitroglycerin (Inpatient Use) 0.4 Mg Tab.Subl) 0.4 mg SUBLINGUAL Q5M PRN PRN Reason: CARDIAC/CHEST PAIN Nutritional Formula (Lactose Free) (Ensure Enlive 120 Ml Liquid) 120 ml PO 4X/DAY COUNTS INCLUDE 234 BEDS AT THE [facility] Last Admin: 12/15/19 12:54 Dose: 120 ml Documented by: Ondansetron HCl (Ondansetron 4 Mg/2 Ml Vial) 4 mg IV Q8H PRN PRN PRN Reason: NAUSEA/VOMITING Last Admin: 12/12/19 13:44 Dose: 4 mg Documented by: Oxycodone HCl (Oxycodone 5 Mg Tablet) 5 mg PO Q4H PRN PRN PRN Reason: Pain Score 4-5 Last Admin: 12/15/19 13:43 Dose: 5 mg Documented by: Prochlorperazine Edisylate (Prochlorperazine 10 Mg/2 Ml Vial) 5 mg IV Q4H PRN PRN PRN Reason: Breakthrough nausea/vomiting Sodium Chloride (0.9% Saline Lock 10 Ml Syringe) 10 - 40 ml IV UD PRN PRN Reason: SALINE FLUSH Last Admin: 12/12/19 13:44 Dose: 10 ml Documented by: Throat Lozenges (Benzocaine/Menthol 1 Lozenge) 1 lozenge MUCOUS MEM Q2H PRN PRN PRN Reason: SORE THROAT STROKE Vital Signs/Narrative: Vital Signs Pulse Ox 12/15/19 12:09 96 Medical Necessity - Tobacco Use Smoking Status: Never smoker Tobacco Use: Non-smoker Assessment/Plan All Active Problems COVID-19 (Acute) Weakness (Acute) Encephalopathy acute (Acute) Leukopenia (Acute) Lymphopenia associated with COVID-19 (Acute) Dementia (Acute) Debility (Acute) 1. acute COVID-19 infection * CTA showed diffuse GGO * review of records does not show that the patient was ever on dexamethasone (prior physician's documentation noted) * given the findings on CTA, will initiate PO dexamethasone * no consult placed to ID (prior physician's documentation noted). Given hemodynamic stability, will hold on formal consult for now. * wean oxygen as tolerated. Check ambulatory pulse ox prior to DC 2. migraine * supportive mgmt * will give dexamethasone for COVID-19, which can hopefully help 3. epistaxis: likely from oxygen and enoxaparin. 4. VTE prophylaxis: LMWH held given epistaxis 5. Disposition: home v SNF. awaiting input from DES. 6. Disposition: pending family input. JOSÉ LUIS CM. Inpatient E&M: 32177 Subs Hosp L2
--- NOTE | 2019-12-15 14:51 | CASEMGMT ---
Addendum entered by Renee Barclay 12/15/19 15:56: Return call from [facility] and they are able to accept pt and precert will be started. Pt dgt Elsa updated and now states she is not sure about [facility]. Name of other facilities in network with insurance and accepting covid pt provided ([facility]ly [facility] and [facility], [place]). Elsa is also considering bringing pt to her home to care for her. SW explained pt will likely need 24 hour care. Elsa will talk to her family and let SW know tomorrow morning. Return call to [facility] and requested precert not be started at this time. Will update tomorrow. Plan: SNF Vs. Home JULIO CESAR Shanks Original Note: Social Work SW placed call to pt dgt Elsa to discuss discharge plan. Elsa confirmed pt has been living alone and SW reviewed therapy notes with Elsa. Elsa feels pt will need short term SNF placement. SW explained limited amount of SNFs accepting covid positive pt and offered choices. Elsa would like [facility]. DES did explain visitor restriction and need for insurance precert. Phone call to Tila at [facility] and they do have rooms available. Referral sent and will await determination if they can accept. Plan: [facility] SNF, pending acceptance and precert JULIO CESAR Shanks
[2019-12-16] VITALS (7 sets, daily range): BP systolic 128–161; BP diastolic 74–98; PULSE 59–80; RESP 16–24; TEMP 36.3–37.1; O2SAT 86–99
[2019-12-16] MEDS: Acetaminophen 325 MG Tablet 650 MG PO ×3 (00:21→22:06)
[2019-12-16] MEDS: Famotidine 20 MG Tablet PO ×3 (00:21→22:06)
[2019-12-16] MEDS: MELATONIN 3 MG TABLET PO ×2 (00:21→22:06)
[2019-12-16] MEDS: Donepezil HCl 5 MG Tablet PO ×2 (00:22→22:06)
[2019-12-16] MEDS: dexAMETHasone 4 MG Tablet 6 MG PO (08:04)
--- NOTE | 2019-12-16 10:45 | CASEMGMT ---
Addendum entered by Saumya Cardoza 12/16/19 11:30: Eddy's number [phone] Original Note: Social Work Note SW received message from pt's daughter Elsa confirming plan is for pt to go to [facility]. DES placed a call back to Elsa and was then in a conference call with Elsa and pt's son Eddy. Elsa and Eddy both confirm plan is for pt to admit to [facility]. DES answered Elsa and Eddy's questions. Eddy asked to be notified by RN on pt's medical status. DES attempted to update RN, RN busy with pt in room. DES will update RN soon. DES placed a call to Tila at [facility] and updated her that plan is confirmed for pt to admit to [facility]. Tila states she will submit for pre-cert. Plan: [facility] pending pre-cert Saumya Cardoza APARTMENT HOUSE MANAGER, [employer]ANT [employer]
[2019-12-16 11:55] LABS: Bedside Glucose 107 mg/dL (70-110)
--- NOTE | 2019-12-16 15:36 | PCM.PN.HOSP ---
Patient Problems: Active and Suspected Problems COVID-19 (Acute) Weakness (Acute) Encephalopathy acute (Acute) Leukopenia (Acute) Lymphopenia associated with COVID-19 (Acute) Dementia (Acute) Debility (Acute) Reason for Visit: COVID Subjective: On commode when she sat up then had a syncopal episode. Vitals/I&O's: Vital Signs Temp Pulse Resp BP Pulse Ox 37.1 C 66 24 H 128/74 H 99 12/16/19 10:37 12/16/19 10:37 12/16/19 10:37 12/16/19 10:37 12/16/19 10:37 Oxygen Flow Rate (L/min) 5 Oxygen Delivery Method Nasal Cannula Weight: 56.744 kg Body Mass Index (BMI) 20.8 Intake and Output for Last 24 Hours 12/14/19 12/15/19 12/16/19 23:59 23:59 23:59 Intake Total 2225 / 2225 687.5 / 687.5 200 / 200 Output Total 500 / 500 300 / 300 Balance 1725 / 1725 687.5 / 687.5 -100 / -100 General: Alert, No apparent distress HEENT: Atraumatic, Normocephalic Neck: No Nodes, Thyroid Normal Size and Texture Lungs: Clear to auscultation, Normal air movement Cardiovascular: Regular rate, Regular Rhythm, Normal S1, Normal S2 Abdomen: Bowel Sounds Present, Soft, Non Tender, Non-Distended, No Hepato-splenomegaly Extremities: No edema, No Calf Tenderness Psych/Mental Status: Normal Affect, Appropriate Microbiology Past 72 Hours 12/10/19 16:40 Blood Culture (Wb) - Right Hand Blood Culture - Final No growth in 5 days. 12/10/19 16:20 Blood Culture (Wb) - No Site/Description Given Blood Culture - Final No growth in 5 days. Laboratory Results 12/16/19 10:34: POC Glucose 107 Current Medications Acetaminophen (Acetaminophen 325 Mg Tablet) 650 mg PO Q6H PRN PRN PRN Reason: Pain Score 1-10/Temp > 100.7 F Last Admin: 12/16/19 13:03 Dose: 650 mg Documented by: Al Hydroxide/Mg Hydroxide (Mag Hydrox/Al Hydrox/Simeth 30 Ml Udc) 30 ml PO Q6H PRN PRN PRN Reason: Gastric Burning Last Admin: 12/15/19 09:54 Dose: 30 ml Documented by: Albuterol Sulfate (Albuterol 2.5 Mg/3 Ml Vial.Neb.) 2.5 mg INHALATION Q2H PRN PRN PRN Reason: Dyspnea, wheezing Dexamethasone (Dexamethasone 4 Mg Tablet) 6 mg PO DAILY@0800 [facility] Stop: 12/23/19 08:01 Last Admin: 12/16/19 08:04 Dose: 6 mg Documented by: Donepezil HCl (Donepezil Hcl 5 Mg Tablet) 5 mg PO QHS [facility] Last Admin: 12/16/19 00:22 Dose: 5 mg Documented by: Famotidine (Famotidine 20 Mg Tablet) 20 mg PO BID [facility] Last Admin: 12/16/19 08:04 Dose: 20 mg Documented by: Guaifenesin (Guaifenesin 10 Ml Udc (200mg/10ml)) 20 ml PO Q4H PRN PRN PRN Reason: COUGH Last Admin: 12/14/19 20:58 Dose: 20 ml Documented by: Melatonin (Melatonin 3 Mg Tablet) 3 mg PO QHS PRN PRN PRN Reason: INSOMNIA Last Admin: 12/16/19 00:21 Dose: 3 mg Documented by: Nitroglycerin (Nitroglycerin (Inpatient Use) 0.4 Mg Tab.Subl) 0.4 mg SUBLINGUAL Q5M PRN PRN Reason: CARDIAC/CHEST PAIN Nutritional Formula (Lactose Free) (Ensure Enlive 120 Ml Liquid) 120 ml PO 4X/DAY [facility] Last Admin: 12/16/19 15:29 Dose: Not Given Documented by: Ondansetron HCl (Ondansetron 4 Mg/2 Ml Vial) 4 mg IV Q8H PRN PRN PRN Reason: NAUSEA/VOMITING Last Admin: 12/12/19 13:44 Dose: 4 mg Documented by: Oxycodone HCl (Oxycodone 5 Mg Tablet) 5 mg PO Q4H PRN PRN PRN Reason: Pain Score 4-5 Last Admin: 12/15/19 18:50 Dose: 5 mg Documented by: Prochlorperazine Edisylate (Prochlorperazine 10 Mg/2 Ml Vial) 5 mg IV Q4H PRN PRN PRN Reason: Breakthrough nausea/vomiting Sodium Chloride (0.9% Saline Lock 10 Ml Syringe) 10 - 40 ml IV UD PRN PRN Reason: SALINE FLUSH Last Admin: 12/12/19 13:44 Dose: 10 ml Documented by: Throat Lozenges (Benzocaine/Menthol 1 Lozenge) 1 lozenge MUCOUS MEM Q2H PRN PRN PRN Reason: SORE THROAT Medical Necessity - Tobacco Use Smoking Status: Never smoker Tobacco Use: Non-smoker Assessment/Plan All Active Problems COVID-19 (Acute) Weakness (Acute) Encephalopathy acute (Acute) Leukopenia (Acute) Lymphopenia associated with COVID-19 (Acute) Dementia (Acute) Debility (Acute) 1. acute COVID-19 infection CTA showed diffuse GGO review of records does not show that the patient was ever on dexamethasone (prior physician's documentation noted) given the findings on CTA, will initiate PO dexamethasone no consult placed to ID (prior physician's documentation noted). Given hemodynamic stability, will hold on formal consult for now. wean oxygen as tolerated. Check ambulatory pulse ox prior to DC 2. migraine supportive mgmt will give dexamethasone for COVID-19, which can hopefully help 3. epistaxis: likely from oxygen and enoxaparin. resolved 4. syncopal episode: transient. monitor for now. no additional work up. 5. VTE prophylaxis: LMWH held given epistaxis 6. Disposition: home v SNF. awaiting input from DES. 7. Disposition: pending family input. JOSÉ LUIS CM. Inpatient E&M: 26089 Subs Hosp L2
[2019-12-17] VITALS (8 sets, daily range): BP systolic 141–166; BP diastolic 79–83; PULSE 65–68; RESP 18–20; TEMP 36.6–36.9; O2SAT 92–94
[2019-12-17] MEDS: Mupirocin Ointment 22gm Tube 1 APPLIC TOPICAL ×2 (06:40→22:24)
[2019-12-17] MEDS: dexAMETHasone 4 MG Tablet 6 MG PO (09:25)
[2019-12-17] MEDS: Acetaminophen 325 MG Tablet 650 MG PO ×2 (09:26→17:51)
[2019-12-17] MEDS: Famotidine 20 MG Tablet PO ×2 (09:26→22:24)
--- NOTE | 2019-12-17 11:01 | CASEMGMT ---
Addendum entered by Renee Barclay 12/17/19 15:40: Social Work Pt ready for d/c at this time. Transportation arranged with [facility] for 6:30 pick and shovel man. Orders faxed to [facility] and Tila notified of discharge time. Phone call to pt dgt and updated on pick and shovel man time. Pt dgt agreeable. JULIO CESAR Shanks Original Note: Social Work Phone call received from [facility] and precert has been received. Physician notified. Phone call to pt dgt and notified that pt will be d/c to [facility] today. 7000 form completed in [facility]. will arrange for d/c. JULIO CESAR Shanks
--- NOTE | 2019-12-17 15:10 | PCM.TXEXTCAR ---
- Diet 12/10/19 19:25 Diet: Regular - General Food consistency:: Regular Liquid Consistency:: Regular/Thin - Routine Orders/Code Status Code Status: Full Code - Wound(s) forehead/top of head Wound Type: shingles L) wrist IV site Wound Type: Puncture Right wrist (old IV site) Wound Type: Puncture - Therapies Physical Therapy: Eval and Treat Occupational Therapy: Eval and Treat - Allergies/Procedures Done in Hospital Allergies/Adverse Reactions: Allergies No Known Allergies Allergy (Verified 12/10/19 15:55) - Type of Care/Length of Stay Estimated LOS: Convalescent Care Less Than 30 days Type of Care Needed: Skilled Rehab Potential: Fair Prognosis: Fair - Additional Orders/Day of Discharge Day of Discharge: 12/17/19 - Dietary and Speech Recommendations Dietitian Recommendations/Changes: Continue liberal Regular diet. Will provide fortified foods and ensure pudding or magic cup w/meals for additional gene/pro if consumed. - Follow Up Care Primary Care Physician: Skinny Bains MD [Primary Care Provider] -
--- NOTE | 2019-12-17 15:15 | PCM.DC.SUM ---
Discharge Date and Diagnosis - Problem List Patient Problems: Active and Suspected Problems COVID-19 (Acute) Weakness (Acute) Encephalopathy acute (Acute) Leukopenia (Acute) Lymphopenia associated with COVID-19 (Acute) Dementia (Acute) Debility (Acute) Date of Admission: 12/10/19 Date of Discharge: 12/17/19 - Primary Discharge Diagnosis Acute Problems: Active Problems COVID-19 (Acute) Weakness (Acute) Encephalopathy acute (Acute) Leukopenia (Acute) Lymphopenia associated with COVID-19 (Acute) Dementia (Acute) Debility (Acute) - Secondary Discharge Diagnosis Chronic Problems: Chronic Problems Anemia (Chronic) CKD (chronic kidney disease), stage III (Chronic) Hospital Course and Treatment Imaging Results: Clinical Impression(s) from Imaging Studies Chest X-Ray 12/10/19 16:20 IMPRESSION: Emphysema without pneumonia or atelectasis. Electronically Signed: Andres Gray MD at 16:45 EDT Tel , Service support , Foot X-Ray 12/10/19 17:30 IMPRESSION: Evaluation of the first and second toes is limited by suboptimal positioning. No fracture or dislocation identified in the right foot. Mild degenerative changes at the first MTP joint with hallux valgus. Electronically Signed: Eusebio Pereira at 17:44 EDT Tel , Service support , Chest CTA 12/10/19 18:11 IMPRESSION: 1. No evidence of pulmonary embolus. 2. No aortic dissection or aneurysm. 3. Patchy groundglass pulmonary infiltrates. Findings are consistent but not diagnostic of COVID 19 pneumonia. 4. Mild right hilar and mediastinal lymphadenopathy. 5. Small hiatal hernia. Electronically Signed: Yogesh Vazquez DO at 18:56 EDT Tel [phone], Service support , Operations: None Procedures: None Summary of Care Provided: The patient is a 79 year old F presents with weakness, fatigue. Positive for COVID-19. [] 1. acute COVID-19 infection CTA showed diffuse GGO review of records does not show that the patient was ever on dexamethasone (prior physician's documentation noted) given the findings on CTA, will initiate PO dexamethasone no consult placed to ID (prior physician's documentation noted). Given hemodynamic stability, will hold on formal consult for now. wean oxygen as tolerated. Check ambulatory pulse ox prior to DC 2. migraine supportive mgmt will give dexamethasone for COVID-19, which can hopefully help 3. epistaxis: likely from oxygen and enoxaparin. resolved 4. syncopal episode: transient. monitor for now. no additional work up. Patient Problems: Active and Suspected Problems COVID-19 (Acute) Weakness (Acute) Encephalopathy acute (Acute) Leukopenia (Acute) Lymphopenia associated with COVID-19 (Acute) Dementia (Acute) Debility (Acute) - Physical Exam Vitals/I&O's: Vital Signs Temp Pulse Resp BP Pulse Ox 36.8 C 68 18 149/79 H 93 12/17/19 09:16 12/17/19 09:16 12/17/19 09:16 12/17/19 09:16 12/17/19 13:00 Oxygen Flow Rate (L/min) 5 Oxygen Delivery Method Nasal Cannula Weight: 56.744 kg Body Mass Index (BMI) 20.8 Intake and Output for Last 24 Hours 12/15/19 12/16/19 12/17/19 23:59 23:59 23:59 Intake Total 687.5 / 687.5 370 / 490 170 / 170 Output Total 500 / 500 Balance 687.5 / 687.5 -130 / -10 170 / 170 General: Alert, No apparent distress HEENT: Atraumatic, Normocephalic Oral: Moist Mucosa, No Gingival or Mucosal Lesions/ Ulcerations Neck: No Nodes, Thyroid Normal Size and Texture Lungs: Clear to auscultation, Normal air movement, No rhonchi, No wheeze Cardiovascular: Regular rate, Regular Rhythm, Normal S1, Normal S2 Abdomen: Bowel Sounds Present, Soft, Non Tender, Non-Distended Extremities: No edema, No Calf Tenderness Microbiology Past 72 Hours 12/10/19 16:40 Blood Culture (Wb) - Right Hand Blood Culture - Final No growth in 5 days. 12/10/19 16:20 Blood Culture (Wb) - No Site/Description Given Blood Culture - Final No growth in 5 days. Current Medications Acetaminophen (Acetaminophen 325 Mg Tablet) 650 mg PO Q6H PRN PRN PRN Reason: Pain Score 1-10/Temp > 100.7 F Last Admin: 12/17/19 09:26 Dose: 650 mg Documented by: Al Hydroxide/Mg Hydroxide (Mag Hydrox/Al Hydrox/Simeth 30 Ml Udc) 30 ml PO Q6H PRN PRN PRN Reason: Gastric Burning Last Admin: 12/15/19 09:54 Dose: 30 ml Documented by: Albuterol Sulfate (Albuterol 2.5 Mg/3 Ml Vial.Neb.) 2.5 mg INHALATION Q2H PRN PRN PRN Reason: Dyspnea, wheezing Dexamethasone (Dexamethasone 4 Mg Tablet) 6 mg PO DAILY@0800 [facility] Stop: 12/23/19 08:01 Last Admin: 12/17/19 09:25 Dose: 6 mg Documented by: Donepezil HCl (Donepezil Hcl 5 Mg Tablet) 5 mg PO QHS [facility] Last Admin: 12/16/19 22:06 Dose: 5 mg Documented by: Famotidine (Famotidine 20 Mg Tablet) 20 mg PO BID [facility] Last Admin: 12/17/19 09:26 Dose: 20 mg Documented by: Guaifenesin (Guaifenesin 10 Ml Udc (200mg/10ml)) 20 ml PO Q4H PRN PRN PRN Reason: COUGH Last Admin: 12/14/19 20:58 Dose: 20 ml Documented by: Melatonin (Melatonin 3 Mg Tablet) 3 mg PO QHS PRN PRN PRN Reason: INSOMNIA Last Admin: 12/16/19 22:06 Dose: 3 mg Documented by: Mupirocin (Mupirocin Ointment 22gm Tube) 1 applic TOPICAL BID [facility]; Protocol Last Admin: 12/17/19 06:40 Dose: 1 applic Documented by: Nitroglycerin (Nitroglycerin (Inpatient Use) 0.4 Mg Tab.Subl) 0.4 mg SUBLINGUAL Q5M PRN PRN Reason: CARDIAC/CHEST PAIN Nutritional Formula (Lactose Free) (Ensure Enlive 120 Ml Liquid) 120 ml PO 4X/DAY [facility] Last Admin: 12/17/19 15:13 Dose: 120 ml Documented by: Ondansetron HCl (Ondansetron 4 Mg/2 Ml Vial) 4 mg IV Q8H PRN PRN PRN Reason: NAUSEA/VOMITING Last Admin: 12/12/19 13:44 Dose: 4 mg Documented by: Oxycodone HCl (Oxycodone 5 Mg Tablet) 5 mg PO Q4H PRN PRN PRN Reason: Pain Score 4-5 Last Admin: 12/15/19 18:50 Dose: 5 mg Documented by: Prochlorperazine Edisylate (Prochlorperazine 10 Mg/2 Ml Vial) 5 mg IV Q4H PRN PRN PRN Reason: Breakthrough nausea/vomiting Sodium Chloride (0.9% Saline Lock 10 Ml Syringe) 10 - 40 ml IV UD PRN PRN Reason: SALINE FLUSH Last Admin: 12/12/19 13:44 Dose: 10 ml Documented by: Throat Lozenges (Benzocaine/Menthol 1 Lozenge) 1 lozenge MUCOUS MEM Q2H PRN PRN PRN Reason: SORE THROAT Discharge Diet: No Restrictions Discharge Activity: Return to Normal Activity Home Medications: Medications to take at Discharge Donepezil HCl [Aricept] 5 mg PO QHS 04/10/18 Aspirin [Aspirin, Baby] 81 mg PO DAILY@0800 12/10/19 Acetaminophen [Tylenol Tablet] 650 mg PO Q6H PRN PRN tab 12/17/19 Ensure Enlive 120 ml PO 4X/DAY liquid 12/17/19 Guaifenesin [Robitussin] 20 ml PO Q4H PRN PRN udc 12/17/19 Primary Care Physician: Skinny Bains MD [Primary Care Provider] - [facility]position: [facility] facility Minutes spent on discharge:: 32 Patient Condition:: Fair Medical Necessity - Tobacco Use Smoking Status: Never smoker Tobacco Use: Non-smoker Meaningful Use Info Meaningful Use Diagnoses (Choose all that apply): None applicable Inpatient E&M: 22722 Disch Hosp
[2019-12-17] MEDS: Donepezil HCl 5 MG Tablet PO (22:24)
--- NOTE | 2019-12-17 22:46 | NURSING ---
This RN called Katarina at [facility] and informed her that pt had Pepcid and Aricept tonight. Transport is at [facility] at this time to get patient.
== END 2019-12-17 22:55 | disposition skilled nursing facility (03) | DRG 177 ==
LOC: ED 18:29 → MS2 19:01
PROVIDERS: Student in an Organized Health Care Education/Training Program; Admitting Provider Family Medicine; Emergency Provider Emergency Medicine; PCP Family Medicine
DX: U07.1 COVID-19 (principal); G93.41 Metabolic encephalopathy; F03.90 Unspecified dementia, unspecified severity, without behavioral disturbance, psychotic disturbance, mood disturbance, and anxiety; N18.30 Chronic kidney disease, stage 3 unspecified; M20.10 Hallux valgus (acquired), unspecified foot; D70.9 Neutropenia, unspecified; J43.9 Emphysema, unspecified; D64.9 Anemia, unspecified; D72.810 Lymphocytopenia; D75.89 Other specified diseases of blood and blood-forming organs; G43.909 Migraine, unspecified, not intractable, without status migrainosus; R04.0 Epistaxis; R55 Syncope and collapse; Z79.899 Other long term (current) drug therapy; Z87.891 Personal history of nicotine dependence; Z86.19 Personal history of other infectious and parasitic diseases
CPT/HCPCS: 36415; 71045; 71275; 73630; 80048; 80053; 81001; 82550; 82607; 82728; 82746; 82962; 83540; 83550; 83605; 83615; 83735; 84145; 84484; 85025; 85379; 85384; 86140; 87040; 87449; 87633; 93005; 97110; 97116; 97162; 97165; 97530; 97535; 99251; 99285; J7030; Q9967; A4216; G0463; J2405

== ENCOUNTER 2020-02-27 10:40 | Inpatient (IN) | payer MEDICARE, SELFPAY ==
[2020-02-27] VITALS (18 sets, daily range): BP systolic 79–105; BP diastolic 57–80; PULSE 82–113; RESP 17–24; TEMP 35.7–36.9; O2SAT 86–100; BMI 22.2; BMI 19.6; BMI 19.7
--- NOTE | 2020-02-27 10:48 | EKG12_ITS ---
Test Reason : Blood Pressure : / mmHG Vent. Rate : 105 BPM Atrial Rate : 105 BPM P-R Int : 178 ms QRS Dur : 096 ms QT Int : 372 ms P-R-T Axes : 052 033 056 degrees QTc Int : 491 ms Sinus tachycardia Nonspecific ST and T wave abnormality Abnormal ECG Confirmed by JENNIFER JACQUES, JANESSA ([id number]), editor magazine ZULAY EDDY ([id number]) on 02/28/2020 10:34:58 AM Referred By: FRANCISCO J Confirmed By:JANESSA RODRIGUEZ MD
--- NOTE | 2020-02-27 10:48 | RAD_ITS ---
STUDY: X-RAY CHEST REASON FOR EXAM: Female, 79 years old. Chest pain and shortness of breath. TECHNIQUE: Single AP portable view of the chest. COMPARISON: 12/10/2019. FINDINGS: There is hyperinflation of the lungs consistent with chronic obstructive lung disease (COPD). Persistent mild elevation of the right hemidiaphragm. No focal infiltrate is seen. There is no demonstrated pleural abnormality. Normal size heart. Normal mediastinum and nay. Normal visualized pulmonary arteries. Normal visualized aortic arch and descending thoracic aorta. Stable osseous structures. There is no demonstrated abnormality of the visualized soft tissue structures of the upper abdomen. RAD/Chest 1 View (Portable) IMPRESSION: No significant change. No active pulmonary disease. Electronically Signed: Elliot Montoya MD at 12:18 EST Tel , Service support ,
[2020-02-27 11:00] LABS: Absolute Neutrophil Count 4.6 X10^3/uL (2.0-7.7); Basophil# 0.05 X10^3/uL; Basophil% 0.5 % (0-1); Eosinophil# 0.08 X10^3/uL; Eosinophils% 0.9 % (0-5); Hematocrit 37.5 % (37-47); Hemoglobin 11.9 g/dL (12.0-15.0); Lymphocyte % 40.1 % (19-41); Mean Corp Hgb Conc 31.7 g/dL (32-36); Mean Corpuscular Hgb 31.7 pg (27.0-32.0); Mean Platelet Vol. 9.8 fl (6.2-12.0); Monocyte# 0.72 X10^3/uL; Monocyte% 7.8 % (0-10); NRBC Flagged by Analyzer 0 % (0-5); Neutrophil # 4.64 X10^3/uL (2.7-7.7); Neutrophil % 50.4 % (47-70); Platelet Count 292 K/mm3 (150-450); RBC Distribution Width CV 15.6 % (11.6-14.6); Red Blood Count 3.75 M/mm3 (4.2-5.4); White Blood Count 9.2 K/mm3 (4.4-11.0)
--- NOTE | 2020-02-27 11:17 | CT_ITS ---
STUDY: CT BRAIN WITHOUT CONTRAST REASON FOR EXAM: Female, 79 years old. Syncope, hypertension and dementia. RADIATION DOSAGE (If Supplied By Facility): CTDIvol = ( 44.99 ) mGy, DLP = ( 779.24 ) mGycm TECHNIQUE: Transaxial CT imaging of the brain was performed without administration of intravenous contrast material. Individualized dose optimization techniques were used for this CT. COMPARISON: 04/10/2018. FINDINGS: Normal soft tissue structures. Normal calvarium. Normal size ventricles and extra-axial spaces for the patient''s age. There are areas of decreased attenuation within the white matter tracts of the supratentorial brain, consistent with microvascular disease changes. There are small punctate calcifications of the basal ganglia which are seen in the aging brain as a normal variant. Normal brainstem. Normal cerebellum. There is no intracranial hemorrhage. There are no findings of an acute ischemic infarction. Normal visualized paranasal sinuses. CT/Brain/Head without Contrast IMPRESSION: 1. Chronic involutional changes of the brain. 2. No acute intracranial process. Electronically Signed: Elliot Montoya MD at 12:10 EST Tel , Service support ,
[2020-02-27 11:20] LABS: Anion Gap 11 (5-15); BUN 24 mg/dL (7-18); BUN/Creat Ratio 18.3 RATIO (10-20); Calcium,Total 9.2 mg/dL (8.5-10.1); Chloride 106 mmol/L (98-107); Creatinine, Serum 1.31 mg/dL (0.55-1.02); EST Glomerular Filtration Rate 41 mL/min (>60); Est Glom Filt Rate - Afr Amer 50 mL/min (>60); Estimated Creatinine Clearance 30.31 ml/min; Glucose 179 mg/dL (74-106); Potassium 4.8 mmol/L (3.5-5.1); Sodium Level 140 mmol/L (136-145)
[2020-02-27 11:29] LABS: BNP,B-Type NATRIURETIC PEPTIDE 664.7 pg/mL (0-100)
[2020-02-27] MEDS: 0.9% Normal Saline 1,000 ML 999 ML IV (11:34)
--- NOTE | 2020-02-27 11:57 | EKG12_ITS ---
Test Reason : Blood Pressure : / mmHG Vent. Rate : 106 BPM Atrial Rate : 106 BPM P-R Int : 168 ms QRS Dur : 082 ms QT Int : 360 ms P-R-T Axes : 072 032 033 degrees QTc Int : 478 ms Sinus tachycardia Otherwise normal ECG Possible PE Confirmed by JENNIFER JACQUES, JANESSA ([id number]), electronic news gathering editor ZULAY EDDY ([id number]) on 02/28/2020 10:35:18 AM Referred By: FRANCISCO J Confirmed By:JANESSA RODRIGUEZ MD
[2020-02-27 12:14] LABS: D-Dimer Quantitative (DVT/PE) > 20.00 FEU/ug/m (0.27-0.49)
--- NOTE | 2020-02-27 12:15 | CT_ITS ---
We are attempting to reach an attending provider to discuss findings. An addendum with communication details will be sent when the communication is complete. STUDY: CTA CHEST REASON FOR EXAM: Female, 79 years old. Syncope, abnormal D-dimer, SOB, hypoxia, COVID 11/2019. RADIATION DOSAGE (If Supplied By Facility): CTDIvol = ( 6.00 ) mGy, DLP = ( 202.17 ) mGycm TECHNIQUE: The examination was performed with the intravenous administration of 75mL Isovue 370. Post-processing of the angiographic images was performed, with multiplanar reformation and 3D reconstruction. Individualized dose optimization techniques were used for this CT. COMPARISON: None. FINDINGS: Filling defects in the main pulmonary artery extending to the right and left main pulmonary arteries and into the peripheral branches of both lower lobes. Atherosclerotic calcifications of the distal thoracic aorta. No evidence of aneurysm. Suboptimal enhancement of the thoracic aorta. Normal heart and pericardium. Coronary calcifications. Normal mediastinum. Normal hilar regions. Normal visualized trachea and bronchi. The lungs are well expanded. Hyperinflated lungs and COPD changes. Patchy bilateral infiltrates. Viral pneumonitis including Covid 19 pneumonia cannot be excluded. Nodular changes in right lower lung likely due to scarring. There are no pleural effusions. Normal chest wall structures. There are degenerative changes of thoracic spine. The visualized portions of the upper abdomen demonstrate markedly distended bladder. CT/CTA Chest W/WO Contrast IMPRESSION: 1. Saddle pulmonary embolism extending to the main pulmonary arteries bilaterally and into the peripheral branches. 2. Patchy bilateral infiltrates consistent with multifocal pneumonia. Covid 19 pneumonia cannot be excluded. Electronically Signed: Elliot Montoya MD at 13:01 EST Tel , Service support ,
--- NOTE | 2020-02-27 12:16 | ED.RN ---
lab called d dimer greater then 20
[2020-02-27 12:54] LABS: Mucous, Urine 0 SEEN /hpf (<or=2+); Red Blood Cells-Urine 0 SEEN /hpf (0-5); White Blood Cells 0 SEEN /hpf (0-5)
[2020-02-27 12:56] LABS: Color, Urine Yellow (Yellow); Glucose, Dipstick Normal (Normal); Ketone-Dipstick Negative (Negative); Leukocyte Esterase-Dipstick Negative /ul (Negative); Nitrite-Dipstick Negative (Negative); Occult Blood-Urine 25 /ul (Negative); Protein-Dipstick Negative (Negative); Urine Bilirubin Dipstick Negative (Negative); Urine Clarity Clear (Clear); Urine Urobilinogen Normal (Normal)
--- NOTE | 2020-02-27 12:57 | ED.DCSUM_ITS ---
History of Present Illness Chief Complaint: Syncope Informant: Patient, Family Onset: Days Maximum Severity: Mild Narrative: Patient's presents with EMS from home with a report of syncope, the history is very sketchy as the patient is not a good historian lives with her daughter basically patient reported that she basically woke up feeling fine and somehow had some type of syncopal spell. Subsequently the daughter presented and reported that the mother has been having syncopal spells on and off for about a month she also has chronic shortness of breath that they have been monitoring with a home pulse ox. The patient went to bed feeling fine woke today with her chronic shortness of breath when she was in the bathroom during routine normal hygiene she had an episode where she seemed very weak the daughter caught her she put in a wheelchair paramedics were called and she was brought to the hospital the daughter states the mother did not strike anything or fall. The patient has no history of CO PE or DVT she has been doing well at home no fever no cough eating and drinking generally without difficulty set for the last few days, the exact etiology of the shortness of breath is unclear, she presents with a blood pressure about 90 over palp it is unclear if this is normal or low for the patient. There is been no again GI loss of fluid or GI bleeding daughter does report the mother is not had much of an appetite recently and has had poor p.o. intake over the last day or so. The patient's not been evaluated previously for the syncope and again prior evaluations of the shortness of breath were nondiagnostic Past Medical History - Allergies and Home Meds Allergies/Adverse Reactions: Allergies No Known Allergies Allergy (Verified 02/27/20 10:41) Primary Care Physician: Skinny Bains MD [Primary Care Provider] - Past Medical History: - - There is a questionable report history of breast cancer Surgical History: tonsillectomy Smoking Status: Never smoker - Family History Maternal Family History: Reports: Cancer - There with history of breast cancer. Paternal Family History: Reports: Hypertension Sibling Family History: Reports: Cancer - Sister with a history of lymphoma. Review of Systems ROS: - There is a questionable report history of breast cancer to confirm that with family General: Reports: - - The patient's only complaint now is generalized weakness and a mild headache and again later the daughter presented and reported the mot her did not hit her head the patient denies chest pain or shortness of breath her pulse ox is about 93% on room air. Denies: Chills, Fever, Sweats Eyes: Denies: Visual changes - bilaterally, Diplopia ENT: Denies: Rhinorrhea, Sore throat Cardiovascular: Denies: Chest pain, Palpitations Respiratory: Denies: Dyspnea, Cough, Dyspnea on exertion Gastrointestinal: Denies: Abdominal pain, Nausea, Vomiting, Diarrhea, Melena, Hematochezia Genitourinary: Denies: Dysuria, Hematuria, Frequency Musculoskeletal: Denies: Back pain, Extremity Pain Skin: Denies: Rash, Wounds Neurological: Reports: Headache, Weakness. Denies: Numbness Physical Exam Vital Signs/Narrative: Vital Signs Temp Pulse Resp BP Pulse Ox 02/27/20 10:55 96.3 F L 98 20 H 79/68 L 98 02/27/20 10:51 96 02/27/20 10:41 96.3 F L 103 H 20 H 79/68 L 86 General: Well nourished, Well developed, No Acute Distress Head: Normocephalic, Atraumatic Eyes: Perrl, EOMI ENT: Moist mucous membranes, No rhinorrhea Neck: Supple, Nontender Cardiovascular: Regular rate, Regular rhythm, No murmurs Respiratory: No distress, CTA bilaterally, Chest nontender Abdomen: Soft, Nontender, Nondistended, Normal bowel sounds Back: Nontender, Normal Inspection Extremities: Nontender, No edema Skin: Normal color, No rash Neurological: Alert, Oriented x3, Cranial nerves II-XII grossly intact, Normal Strength, Normal Sensation Psychological: Normal affect, Normal Mood Diagnostic/Tx/Re-eval - Medical Decision Making None the daughter reports the mother's pulse ox varies at home from 88-95 she is not on home oxygen they have been told to use breathing exercises to help with this process Initial EKG showed sinus rhythm versus a flutter very poor baseline, repeat EKG showed sinus rhythm no injury pattern questionable [id number] 3 rate about 95 Initial 1 view chest x-ray to my review showed no acute abnormality cardiopulmonary structures generally unremarkable, her screening labs showed elevated creatinine 1.3 baseline 0.75, abnormal troponin abnormal D-dimer, she was given IV fluid boluses, her blood pressure improved to 105/70, she was sent for CTA of her chest and preliminary report reveals signs of saddle embolism, on reevaluation she is resting comfortably in the bed hemodynamically stable discussed all the above with the patient and daughter, they understand the need for admission, spoke with the hospitalist will begin IV heparin and arrange for admission she remains hemodynamically stable in the hospital emergency department, no signs of cardiopulmonary failure or distress Critical care time 30 minutes Admit stable Impression final saddle pulmonary embolism, dehydration, syncope ED Disposition - Plan for ED Patient: Referrals: Skinny Bains MD [Primary Care Provider] -
[2020-02-27 13:03] LABS: Bacteria RARE /hpf (None Seen); Hyaline Cast 10-25 SEEN /lpf (0-5); Squamous Epithelial Cells - UA 0-5 SEEN /hpf (5-10)
--- NOTE | 2020-02-27 13:26 | PCM.HP.STD ---
Problem List (1) Saddle pulmonary embolus Status: Acute (2) Anemia Status: Chronic Qualifiers: Anemia type: unspecified type Qualified Code(s): D64.9 - Anemia, unspecified (3) Dementia Status: Chronic Qualifiers: Dementia type: unspecified type Dementia behavioral disturbance: without behavioral disturbance Qualified Code(s): F03.90 - Unspecified dementia without behavioral disturbance (4) CKD (chronic kidney disease), stage III Status: Chronic Qualifiers: Chronic kidney disease stage 3 subtype: unspecified whether 3a or 3b Qualified Code(s): N18.30 - Chronic kidney disease, stage 3 unspecified History of Present Illness Date of Admission: 02/27/20 Chief Complaint: Syncope. The patient is a 79 year old F with past medical history as mentioned above presented to the emergency room because of syncope. The patient is a poor informant but her daughter was at the bedside. Daughter mentioned that patient was standing, noted that her mom is weak and she stumbled and she passed out. The patient mentioned that she was dizzy over the last several days especially when she stands up very quick. Daughter mentioned that her mom lost her consciousness completely and she was out of it. No reported body injury. Patient denied any chest pain, palpitation, nausea or vomiting. She was admitted on November, for COVID-19 and she was discharged to SNF on oxygen but her daughter mentioned that she was discharged home from the SNF without oxygen and obviously she did not need it. She will history of dementia with baseline intermittent confusion and she has been on Aricept. She had history of stage III chronic kidney disease, creatinine has been up to 1.3 mg/dL, most recent was 0.78 and today, it is 1.31 mg/dL. In the emergency department, patient was afebrile, slightly tachycardic, hypotensive which responded to IV fluids and pulse ox was 86% on room air, improved to 98% on 3 L. Routine blood work was remarkable for hemoglobin of 11.9 g/dL, BUN of 24, creatinine is 1.31. EKG revealed sinus tachycardia, no acute ischemic changes. Troponin was 0.297. BNP was 664. Urinalysis showed no evidence of acute infection. Chest x-ray showed no acute infiltrate or consolidation. CT scan brain showed no acute infarct or hemorrhage. CTA chest revealed saddle pulmonary embolism extending into the main pulmonary arteries bilaterally, patchy bilateral infiltrate related to recent COVID-19 pneumonia. Patient is being admitted for acute saddle pulmonary embolism, syncopal episode and transient hypotension which improved with IV fluids as well as RAJAT on CKD. 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 Paternal History Items: Hypertension Sibling History Items: Cancer - Sister with a history of lymphoma. Review of Systems Constitutional: Reports: Weakness, Fatigue. Denies: Anorexia, Chills, Fever Eyes: Denies: Blurred vision, Double vision, Drainage, Redness HEENT: Denies: Difficulty Hearing, Ear Pain, Eye Pain, Nasal Congestion, Sore Throat Cardiovascular: Reports: Light Headedness, Syncope. Denies: Chest Pain, Heaviness, Palpitations Respiratory: Reports: Shortness of Breath. Denies: Cough, Hemoptysis, Pleuritic Pain, Sputum production, Wheezing Gastrointestinal: Denies: Abdominal Pain, Constipation, Diarrhea, Nausea, Vomiting Genitourinary: Denies: Dysuria, Frequency, Hematuria Musculoskeletal: Denies: Arm Pain, Back Pain, Foot Pain Skin: Denies: Dryness, Rash Neurological: Denies: Balance problems, Double vision, Change in Speech, Slurred speech, Confusion, Headaches, Incoordination Psychiatric: Denies: Anxiety, Depression Endocrine: Denies: Change in Body Habitus, Polydipsia, Polyuria VTE Information - Inpt Only VTE Present on Admission: No VTE Mechan Device Prophylaxis: None VTE Pharm Prophylaxis ordered?: No - Physical Exam Vitals/I&O's: Vital Signs Temp Pulse Resp BP Pulse Ox 96.3 F L 101 H 20 H 79/68 L 98 02/27/20 10:55 02/27/20 10:55 02/27/20 10:55 02/27/20 10:55 02/27/20 10:55 Oxygen Flow Rate (L/min) 3 Oxygen Delivery Method Nasal Cannula Weight: 133 lb 9.602 oz Body Mass Index (BMI) 22.2 General: Alert, Oriented x3, Cooperative, No apparent distress HEENT: Atraumatic, PERRLA, EOMI, Normocephalic Oral: Moist Mucosa, No Gingival or Mucosal Lesions/ Ulcerations Neck: Supple, No JVD, Negative Carotid Bruits, Trachea Midline, Thyroid Normal Size and Texture Lungs: Clear to auscultation, Normal air movement, No rhonchi, No wheeze, No rales, Diminished Cardiovascular: Regular rate, Regular Rhythm, Normal S1, Normal S2, PMI Normal, Tachycardic Abdomen: Bowel Sounds Present, Soft, Non Tender, Non-Distended, No Hepato-splenomegaly Extremities: No clubbing, No cyanosis, No edema Skin: No rashes, No breakdown Lymphatic: No Cervical, Supraclavicular, or Inguinal Adenopathy Neurological: Cranial nerves II-XII grossly intact, Motor Exam 5/5 strength throughout Psych/Mental Status: Normal Affect, Appropriate, Alert and oriented to time, place, person, mood and affect Laboratory Results 02/27/20 10:55: WBC 9.2, RBC 3.75 L, Hgb 11.9 L, Hct 37.5, MCV 100.0 H, MCH 31.7, MCHC 31.7 L, RDW Std Deviation 57.0 H, RDW Coeff of Kaye 15.6 H, Plt Count 292, MPV 9.8, Immature Gran % (Auto) 0.300, Neut % (Auto) 50.4, Lymph % (Auto) 40.1, [place] % (Auto) 7.8, Eos % (Auto) 0.9, Baso % (Auto) 0.5, Absolute Neuts (auto) 4.6, Absolute Lymphs (auto) 3.70, Nucleated RBC % 0 02/27/20 10:55: Sodium 140, Potassium 4.8, Chloride 106, Carbon Dioxide 23.0, Anion Gap 11, BUN 24 H, Creatinine 1.31 H, Estim Creat Clear Calc 30.31, Est GFR (MDRD) Af Amer 50 L, Est GFR (MDRD) Non-Af 41 L, BUN/Creatinine Ratio 18.3, Glucose 179 H, Calcium 9.2, Troponin I 0.297 H 02/27/20 10:55: B-Natriuretic Peptide 664.7 H 02/27/20 10:55: D-Dimer Quant (PE/DVT) > 20.00 H* 02/27/20 10:55: APTT Pending 02/27/20 12:50: Urine Color Yellow, Urine Clarity Clear, Urine pH 5.0, Ur Specific [place] 1.020, Urine Protein Negative, Urine Glucose (UA) Normal, Urine Ketones Negative, Urine Occult Blood 25 H, Urine Nitrite Negative, Urine Bilirubin Negative, Urine Urobilinogen Normal, Ur Leukocyte Esterase Negative, Urine RBC 0 SEEN, Urine WBC 0 SEEN, Ur Squamous Epith Cells 0-5 SEEN, Urine Bacteria RARE, Hyaline Casts 10-25 SEEN, Urine Mucus 0 SEEN 02/27/20 12:50: Troponin I 0.292 H 02/27/20 13:55: Troponin I Cancelled Clinical Impression(s) from Imaging Studies Chest X-Ray 02/27/20 10:48 IMPRESSION: No significant change. No active pulmonary disease. Electronically Signed: Elliot Montoya MD at 12:18 EST Tel , Service support , Brain CT 02/27/20 11:17 IMPRESSION: 1. Chronic involutional changes of the brain. 2. No acute intracranial process. Electronically Signed: Elliot Montoya MD at 12:10 EST Tel , Service support , Chest CTA 02/27/20 12:15 IMPRESSION: 1. Saddle pulmonary embolism extending to the main pulmonary arteries bilaterally and into the peripheral branches. 2. Patchy bilateral infiltrates consistent with multifocal pneumonia. Covid 19 pneumonia cannot be excluded. Electronically Signed: Elliot Montoya MD at 13:01 EST Tel , Service support , ADDENDUM: 02/27/20 1319 IMPRESSION: 1. Saddle pulmonary embolism extending to the main pulmonary arteries bilaterally and into the peripheral branches. 2. Patchy bilateral infiltrates consistent with multifocal pneumonia. Covid 19 pneumonia cannot be excluded. N.B. : The above information has been verbally conveyed by Elliot Montoya MD to Dr. Tee MD, on 02/27/2020 13:13:00 (ET). Electronically Signed: Elliot Montoya MD at 13:01 EST Tel , Service support , Current Medications Heparin Sodium (Porcine) (Heparin Injection (Vial) 5,000 Unit/Ml Vial) 0 unit IV UD PRN; Protocol PRN Reason: dose adjustment Heparin Sodium/Dextrose () 25,000 units in 250 mls @ 8 mls/hr IV .[id number] MONA; Protocol Assessment/Plan All Active Problems Saddle pulmonary embolus (Acute) This is an 79 years old female patient presented to the emergency room because of syncopal episode, found to have saddle pulmonary embolism as well as hypotension which responded to IV fluid bolus and she is being admitted for treatment. #1 acute saddle pulmonary embolism: Extending to bilateral main pulmonary arteries. It is likely due to recent COVID-19 pneumonia. D-dimer was highly elevated more than 20. CTA chest reviewed. Patient was initially hypotensive but she received IV fluid bolus and her blood pressure improved. Plan: Admit to ICU, critical care monitoring, complete bedrest, IV fluids, start IV heparin drip weight-based protocol, oxygen by nasal cannula, check pro time and INR, Tylenol as needed, Zofran as needed, critical care consult, 2D echocardiogram, repeat CBC and CMP tomorrow morning, PT OT evaluation and treatment when appropriate. #2 acute kidney injury on stage III chronic kidney disease: Although her creatinine has been around her baseline but she is clinically dehydrated. BUN was 24, it was 10 2 months ago, creatinine is 1.31, it was 0.782 months ago. Plan: IV fluids, input output chart, maintain Jimenez catheter, repeat CMP tomorrow morning. #3 abnormal cardiac enzymes: Likely due to acute saddle PE. EKG showed sinus tachycardia, no acute ischemic changes. Plan: Cardiac monitoring, serial cardiac enzymes, 2D echocardiogram, IV heparin drip. #3 syncope/transient hypotension: Probably due to PE and hypotension. Blood pressure improved after IV fluid bolus. EKG reviewed as above. CT scan brain showed no acute findings. Plan as above. #4 recent COVID-19 pneumonia: Patient was mildly hypoxic in the ED, pulse ox improved with oxygen. CTA chest revealed bilateral infiltrate. She has been afebrile, no leukocytosis. I do not think that she needs isolation precautions. #5 dementia: Continue Aricept. #6 CODE STATUS: Full code. Discussed with the patient's daughter and patient herself. #7 DVT prophylaxis: She will be on IV heparin drip for anticoagulation. This note was generated with [employer] dictation software. It may contain incorrect words, spelling, and punctuation that were not noted in checking the note before signing. Inpatient E&M: 39034 Init Hosp L3
[2020-02-27 13:28] LABS: Partial Thromboplast Time 24.7 Seconds (24.1-36.2)
[2020-02-27] MEDS: Heparin Injection (Vial) 5,000 UNIT/ML VIAL 4000 UNIT IV (13:54)
[2020-02-27] MEDS: HEPARIN/D5w 25,000 UNITS 25,000 UNITS/250 ML IV.SOLN. 8 UNITS IV (13:57)
--- NOTE | 2020-02-27 14:54 | ECHOD_ITS ---
Reason For Study: SYNCOPE Procedure This was a 2D Doppler, Color Flow transthoracic echocardiogram. Exam performed portable in ICU/CCU. Left Ventricle Normal LV size. D shaped septum in diastole. Left ventricular systolic function is lower limits of normal. The estimated ejection fraction is 50 %. No regional wall motion abnormalities noted. Right Ventricle Moderately dilated right ventricle. Moderate global right ventricular systolic dysfunction. Atria Normal left atrium. Normal right atrium. Mitral Valve Normal mitral valve. Mild (1+) eccentric mitral valve insufficiency. Tricuspid Valve Normal tricuspid valve. Moderate (2+) tricuspid valve insufficiency. Pulmonary artery systolic pressure is 45 mmHg. Aortic Valve Trisinus/trileaflet aortic valve. Pulmonic Valve Normal pulmonic valve. Great Vessels Calcified aortic root. The pulmonary artery is normal size. Plethoric inferior vena cava. The inferior vena cava is dilated. Pericardium/Pleural No pericardial effusion. MMode/2D Measurements & Calculations LVIDd: 3.2 cm IVSd: 0.98 cm Ao root diam: 3.4 cm LVIDs: 2.2 cm LVPWd: 0.97 cm RVDd: 3.6 cm FS: 31.3 % LAV(MOD-bp): 50.4 ml LA A4 area: 16.8 cm2 LA dimension(2D): 2.4 cm LAV(MOD-bp) Indexed: 31.4 ml/m2 LAV(MOD-sp2): 58.3 ml LAV(MOD-sp4): 44.5 ml RA A4 area: 16.0 cm2 Time Measurements MV dec time: 0.16 sec Doppler Measurements & Calculations MV E max juan manuel: 77.6 cm/sec Lat Peak E' Juan Manuel: 6.5 cm/sec Med Peak E' Juan Manuel: 6.3 cm/sec MV A max juan manuel: 119.1 cm/sec E/E' lat: 11.9 E/E' med: 12.3 MV E/A: 0.65 Ao V2 max: 104.7 cm/sec LV V1 max: 80.9 cm/sec TR max juan manuel: 301.6 cm/sec Ao max P.4 mmHg LV V1 max P.6 mmHg TR max P.2 mmHg Interpretation Summary Normal LV size. Left ventricular systolic function is lower limits of normal. The estimated ejection fraction is 50 %. Moderately dilated right ventricle. Moderate global right ventricular systolic dysfunction. D shaped septum in diastole. Pulmonary artery systolic pressure is 45 mmHg. Ordering Physician: Teresa Paulino Referring Physician: Skinny Bains Performed By: Indu Segundo, JUHI, RVT
[2020-02-27] MEDS: 0.9% Normal Saline 1,000 ML 100 ML IV (15:39)
[2020-02-27 20:26] LABS: Partial Thromboplast Time 91.7 Seconds (24.1-36.2)
[2020-02-27] MEDS: Acetaminophen 325 MG Tablet 650 MG PO (20:47)
[2020-02-27] MEDS: Donepezil HCl 10 MG Tablet 20 MG PO (22:29)
[2020-02-28] VITALS (27 sets, daily range): BP systolic 77–138; BP diastolic 46–85; PULSE 63–114; RESP 16–24; TEMP 36.4–37.1; O2SAT 91–95
[2020-02-28] MEDS: 0.9% Normal Saline 1,000 ML 100 ML IV ×2 (02:30→12:47)
[2020-02-28 02:51] LABS: Partial Thromboplast Time 69.5 Seconds (24.1-36.2)
[2020-02-28] MEDS: 0.9% Saline Lock 10 ML Syringe IV (03:37)
[2020-02-28 03:51] LABS: Absolute Lymphocyte Count 1.45 X10^3/uL (0.83-4.51); Absolute Neutrophil Count 3.1 X10^3/uL (2.0-7.7); Basophil# 0.04 X10^3/uL; Basophil% 0.8 % (0-1); Eosinophil# 0.07 X10^3/uL; Eosinophils% 1.3 % (0-5); Hematocrit 29.1 % (37-47); Hemoglobin 9.1 g/dL (12.0-15.0); Lymphocyte # 1.45 X10^3/ul (4.0); Lymphocyte % 27.9 % (19-41); Mean Corp Hgb Conc 31.3 g/dL (32-36); Mean Corpuscular Hgb 31.6 pg (27.0-32.0); Mean Platelet Vol. 9.9 fl (6.2-12.0); Monocyte% 9.6 % (0-10); NRBC Flagged by Analyzer 0 % (0-5); Neutrophil # 3.13 X10^3/uL (2.7-7.7); Neutrophil % 60.2 % (47-70); Platelet Count 202 K/mm3 (150-450); RBC Distribution Width CV 16.2 % (11.6-14.6); Red Blood Count 2.88 M/mm3 (4.2-5.4); White Blood Count 5.2 K/mm3 (4.4-11.0)
[2020-02-28 04:16] LABS: ALB/GLOB Ratio 0.8 RATIO (0.9-2.4); AST(SGOT) 36 U/L (15-37); Alanine Aminotransfer ALT/SGPT 29 U/L (13-56); Albumin, Serum 2.6 g/dL (3.2-5.0); Alkaline Phosphatase 73 U/L (45-117); Anion Gap 6 (5-15); BUN 26 mg/dL (7-18); BUN/Creat Ratio 22.8 RATIO (10-20); Calcium,Total 8.1 mg/dL (8.5-10.1); Chloride 115 mmol/L (98-107); Creatinine, Serum 1.14 mg/dL (0.55-1.02); EST Glomerular Filtration Rate 49 mL/min (>60); Est Glom Filt Rate - Afr Amer 59 mL/min (>60); Estimated Creatinine Clearance 32.75 ml/min; Globulin 3.2 g/dL (2.2-4.2); Glucose 156 mg/dL (74-106); Potassium 4.2 mmol/L (3.5-5.1); Protein, Total 5.8 g/dL (6.4-8.2); Sodium Level 143 mmol/L (136-145)
--- NOTE | 2020-02-28 05:44 | PCM.CON.CC ---
Reason for Consult Date of Consultation: 02/28/20 Reason for Consultation: Saddle PE History of Present Illness: The patient is an 79-year-old female, with a history as outlined below, who presented to the emergency department on February 26 with an episode of syncope. The patient has baseline dementia and is therefore a relatively poor historian. The patient was recently admitted to the hospital November 2019 with COVID-19 pneumonia and was discharged to a custodial facility on supplemental oxygen. She has since been discharged from the custodial facility and is living in a residential home. The patient denied a history of venous thromboembolic disease. On presentation to the emergency department, the patient was noted to be tachycardic, tachypneic and relatively hypotensive. Laboratory evaluation revealed a normal white blood cell count. Coagulation profile revealed a D-dimer of greater than 20. Chemistry profile revealed a creatinine of 1.31. Troponin was increased to 0.297. BNP was elevated to 665. CTA chest was obtained which revealed saddle pulmonary embolism extending to the main pulmonary arteries bilaterally. The patient received supplemental IV fluid hydration and was started on a heparin infusion. She was subsequently admitted to the medical intensive care unit for further management. Overnight, the patient has remained hemodynamically stable. She is currently maintaining appropriate oxygen saturations on room air. 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 Paternal History Items: Hypertension Sibling History Items: Cancer - Sister with a history of lymphoma. Review of Systems Constitutional: Denies: Chills, Fever Eyes: Denies: Blurred vision, Double vision HEENT: Denies: Head Aches, Sinus Congestion, Sinus Drainage Cardiovascular: Reports: Syncope Respiratory: Denies: Cough, Shortness of breath at rest, Sputum production Gastrointestinal: Denies: Abdominal Pain, Nausea, Vomiting Genitourinary: Denies: Dysuria Musculoskeletal: Denies: Joint Pain, Joint Tenderness Skin: Denies: Rash, Wounds Neurological: Denies: Numbness, Tingling, Focal weakness Psychiatric: Denies: Anxiety, Depression, Homicidal Ideations, Suicidal Ideations Hematologic/ Lymphatic: Reports: Anemia. Denies: Hx of blood clot Patient Problems: Active and Suspected Problems Saddle pulmonary embolus (Acute) Objective: The patient's most recent lab work, culture data and imaging studies have all been personally reviewed. - Physical Exam Vitals/I&O's: Vital Signs Temp Pulse Resp BP Pulse Ox 97.7 F L 98 20 H 113/69 93 02/28/20 04:00 02/28/20 04:00 02/28/20 04:00 02/28/20 04:00 02/28/20 04:00 Oxygen Flow Rate (L/min) 2 Oxygen Delivery Method Room Air Weight: 118 lb 2.684 oz Body Mass Index (BMI) 19.6 Intake and Output for Last 24 Hours 02/26/20 02/27/20 02/28/20 23:59 23:59 23:59 Intake Total 1172.4 / 1172.4 1500 / 1500 Output Total 75 / 75 Balance 1172.4 / 1097.4 1425 / 1425 General: Alert, Cooperative, Confused HEENT: Atraumatic, PERRLA, Normocephalic Oral: No Gingival or Mucosal Lesions/ Ulcerations Neck: Supple, No Nodes, Trachea Midline Lungs: No rhonchi, No wheeze, No rales, Diminished Cardiovascular: Regular rate, Regular Rhythm Abdomen: Bowel Sounds Present, Soft, Non Tender Extremities: No clubbing, No cyanosis, No edema Skin: No breakdown Musculoskeletal: No Tenderness to Palpation of Joints or Extremities Lymphatic: No Cervical, Supraclavicular, or Inguinal Adenopathy Neurological: Cranial nerves II-XII grossly intact Psych/Mental Status: Normal Affect Labs (Last 48 Hours) 02/27/20 02/27/20 02/27/20 10:55 10:55 10:55 WBC 9.2 RBC 3.75 L Hgb 11.9 L Hct 37.5 MCV 100.0 H MCH 31.7 MCHC 31.7 L RDW Std Deviation 57.0 H RDW Coeff of Kaye 15.6 H Plt Count 292 MPV 9.8 Immature Gran % (Auto) 0.300 Neut % (Auto) 50.4 Lymph % (Auto) 40.1 Cole % (Auto) 7.8 Eos % (Auto) 0.9 Baso % (Auto) 0.5 Absolute Neuts (auto) 4.6 Absolute Lymphs (auto) 3.70 Nucleated RBC % 0 PT INR APTT D-Dimer Quant (PE/DVT) Sodium 140 Potassium 4.8 Chloride 106 Carbon Dioxide 23.0 Anion Gap 11 BUN 24 H Creatinine 1.31 H Estim Creat Clear Calc 30.31 Est GFR (MDRD) Af Amer 50 L Est GFR (MDRD) Non-Af 41 L BUN/Creatinine Ratio 18.3 Glucose 179 H Calcium 9.2 Total Bilirubin AST ALT Alkaline Phosphatase Troponin I 0.297 H B-Natriuretic Peptide 664.7 H Total Protein Albumin Globulin Albumin/Globulin Ratio Urine Color Urine Clarity Urine pH Ur Specific [place] Urine Protein Urine Glucose (UA) Urine Ketones Urine Occult Blood Urine Nitrite Urine Bilirubin Urine Urobilinogen Ur Leukocyte Esterase Urine RBC Urine WBC Ur Squamous Epith Cells Urine Bacteria Hyaline Casts Urine Mucus 02/27/20 02/27/20 02/27/20 10:55 10:55 12:50 WBC RBC Hgb Hct MCV MCH MCHC RDW Std Deviation RDW Coeff of Kaye Plt Count MPV Immature Gran % (Auto) Neut % (Auto) Lymph % (Auto) [place] % (Auto) Eos % (Auto) Baso % (Auto) Absolute Neuts (auto) Absolute Lymphs (auto) Nucleated RBC % PT INR APTT 24.7 D-Dimer Quant (PE/DVT) > 20.00 H* Sodium Potassium Chloride Carbon Dioxide Anion Gap BUN Creatinine Estim Creat Clear Calc Est GFR (MDRD) Af Amer Est GFR (MDRD) Non-Af BUN/Creatinine Ratio Glucose Calcium Total Bilirubin AST ALT Alkaline Phosphatase Troponin I B-Natriuretic Peptide Total Protein Albumin Globulin Albumin/Globulin Ratio Urine Color Yellow Urine Clarity Clear Urine pH 5.0 Ur Specific [place] 1.020 Urine Protein Negative Urine Glucose (UA) Normal Urine Ketones Negative Urine Occult Blood 25 H Urine Nitrite Negative Urine Bilirubin Negative Urine Urobilinogen Normal Ur Leukocyte Esterase Negative Urine RBC 0 SEEN Urine WBC 0 SEEN Ur Squamous Epith Cells 0-5 SEEN Urine Bacteria RARE Hyaline Casts 10-25 SEEN Urine Mucus 0 SEEN 02/27/20 02/27/20 02/27/20 12:50 13:55 15:45 WBC RBC Hgb Hct MCV MCH MCHC RDW Std Deviation RDW Coeff of Kaye Plt Count MPV Immature Gran % (Auto) Neut % (Auto) Lymph % (Auto) [place] % (Auto) Eos % (Auto) Baso % (Auto) Absolute Neuts (auto) Absolute Lymphs (auto) Nucleated RBC % PT INR APTT D-Dimer Quant (PE/DVT) Sodium Potassium Chloride Carbon Dioxide Anion Gap BUN Creatinine Estim Creat Clear Calc Est GFR (MDRD) Af Amer Est GFR (MDRD) Non-Af BUN/Creatinine Ratio Glucose Calcium Total Bilirubin AST ALT Alkaline Phosphatase Troponin I 0.292 H Cancelled 0.182 H B-Natriuretic Peptide Total Protein Albumin Globulin Albumin/Globulin Ratio Urine Color Urine Clarity Urine pH Ur Specific [place] Urine Protein Urine Glucose (UA) Urine Ketones Urine Occult Blood Urine Nitrite Urine Bilirubin Urine Urobilinogen Ur Leukocyte Esterase Urine RBC Urine WBC Ur Squamous Epith Cells Urine Bacteria Hyaline Casts Urine Mucus 02/27/20 02/27/20 02/28/20 20:02 Unknown 02:28 WBC RBC Hgb Hct MCV MCH MCHC RDW Std Deviation RDW Coeff of Kaye Plt Count MPV Immature Gran % (Auto) Neut % (Auto) Lymph % (Auto) [place] % (Auto) Eos % (Auto) Baso % (Auto) Absolute Neuts (auto) Absolute Lymphs (auto) Nucleated RBC % PT 13.0 INR 1.0 APTT 91.7 H* 69.5 H D-Dimer Quant (PE/DVT) Sodium Potassium Chloride Carbon Dioxide Anion Gap BUN Creatinine Estim Creat Clear Calc Est GFR (MDRD) Af Amer Est GFR (MDRD) Non-Af BUN/Creatinine Ratio Glucose Calcium Total Bilirubin AST ALT Alkaline Phosphatase Troponin I B-Natriuretic Peptide Total Protein Albumin Globulin Albumin/Globulin Ratio Urine Color Urine Clarity Urine pH Ur Specific [place] Urine Protein Urine Glucose (UA) Urine Ketones Urine Occult Blood Urine Nitrite Urine Bilirubin Urine Urobilinogen Ur Leukocyte Esterase Urine RBC Urine WBC Ur Squamous Epith Cells Urine Bacteria Hyaline Casts Urine Mucus 02/28/20 02/28/20 03:35 03:35 WBC 5.2 RBC 2.88 L Hgb 9.1 L Hct 29.1 L MCV 101.0 H MCH 31.6 MCHC 31.3 L RDW Std Deviation 60.0 H RDW Coeff of Kaye 16.2 H Plt Count 202 MPV 9.9 Immature Gran % (Auto) 0.200 Neut % (Auto) 60.2 Lymph % (Auto) 27.9 Cole % (Auto) 9.6 Eos % (Auto) 1.3 Baso % (Auto) 0.8 Absolute Neuts (auto) 3.1 Absolute Lymphs (auto) 1.45 Nucleated RBC % 0 PT INR APTT D-Dimer Quant (PE/DVT) Sodium 143 Potassium 4.2 Chloride 115 H Carbon Dioxide 22.0 Anion Gap 6 BUN 26 H Creatinine 1.14 H Estim Creat Clear Calc 32.75 Est GFR (MDRD) Af Amer 59 L Est GFR (MDRD) Non-Af 49 L BUN/Creatinine Ratio 22.8 H Glucose 156 H Calcium 8.1 L Total Bilirubin 0.20 AST 36 ALT 29 Alkaline Phosphatase 73 Troponin I B-Natriuretic Peptide Total Protein 5.8 L Albumin 2.6 L Globulin 3.2 Albumin/Globulin Ratio 0.8 L Urine Color Urine Clarity Urine pH Ur Specific [place] Urine Protein Urine Glucose (UA) Urine Ketones Urine Occult Blood Urine Nitrite Urine Bilirubin Urine Urobilinogen Ur Leukocyte Esterase Urine RBC Urine WBC Ur Squamous Epith Cells Urine Bacteria Hyaline Casts Urine Mucus Clinical Impression(s) from Imaging Studies Chest X-Ray 02/27/20 10:48 IMPRESSION: No significant change. No active pulmonary disease. Electronically Signed: Elliot Montoya MD at 12:18 EST Tel , Service support , Brain CT 02/27/20 11:17 IMPRESSION: 1. Chronic involutional changes of the brain. 2. No acute intracranial process. Electronically Signed: Elliot Montoya MD at 12:10 EST Tel , Service support , Chest CTA 02/27/20 12:15 IMPRESSION: 1. Saddle pulmonary embolism extending to the main pulmonary arteries bilaterally and into the peripheral branches. 2. Patchy bilateral infiltrates consistent with multifocal pneumonia. Covid 19 pneumonia cannot be excluded. Electronically Signed: Elliot Montoya MD at 13:01 EST Tel , Service support , ADDENDUM: 02/27/20 1319 IMPRESSION: 1. Saddle pulmonary embolism extending to the main pulmonary arteries bilaterally and into the peripheral branches. 2. Patchy bilateral infiltrates consistent with multifocal pneumonia. Covid 19 pneumonia cannot be excluded. N.B. : The above information has been verbally conveyed by Elliot Montoya MD to Dr. Tee MD, on 02/27/2020 13:13:00 (ET). Electronically Signed: Elliot Montoya MD at 13:01 EST Tel , Service support , Current Medications Acetaminophen (Acetaminophen 325 Mg Tablet) 650 mg PO Q6H PRN PRN PRN Reason: Pain Score 1-10/Temp > 100.7 F Last Admin: 02/27/20 20:47 Dose: 650 mg Documented by: Donepezil HCl (Donepezil Hcl 10 Mg Tablet) 20 mg PO QHS [facility] Last Admin: 02/27/20 22:29 Dose: 20 mg Documented by: Heparin Sodium (Porcine) (Heparin Injection (Vial) 5,000 Unit/Ml Vial) 0 unit IV UD PRN; Protocol PRN Reason: dose adjustment Heparin Sodium/Dextrose () 25,000 units in 250 mls @ 8 mls/hr IV .[id number] [facility]; Protocol Last Titration: 02/27/20 20:30 Dose: 700 units/hr, 7 mls/hr Documented by: Sodium Chloride () 250 mls @ 15 mls/hr IV .[id number] PRN PRN Reason: Saline Flush Sodium Chloride () 250 mls @ 15 mls/hr IV .[id number] PRN PRN Reason: Additional IVPB Infusion Sodium Chloride () 1,000 mls @ 100 mls/hr IV .Q10H [facility] Last Admin: 02/28/20 02:30 Dose: 100 mls/hr Documented by: Influenza Virus Vaccine Quadrival (Influenza Vaccine (6mos+)/Pf 0.5 Ml Syringe) 0.5 ml IM .ONCE ONE Stop: 02/28/20 10:01 Nutritional Formula (Lactose Free) (Ensure Enlive 120 Ml Liquid) 120 ml PO 4X/DAY [facility] Last Admin: 02/27/20 22:29 Dose: 120 ml Documented by: Ondansetron HCl (Ondansetron 4 Mg/2 Ml Vial) 4 mg IV Q8H PRN PRN PRN Reason: NAUSEA/VOMITING Senna/Docusate Sodium (Senna/Docusate Sodium 1 Tablet) 2 tablet PO BID PRN PRN Reason: Constipation Sodium Chloride (0.9% Saline Lock 10 Ml Syringe) 10 - 40 ml IV UD PRN PRN Reason: SALINE FLUSH Last Admin: 02/28/20 03:37 Dose: 10 ml Documented by: Zolpidem Tartrate (Zolpidem Tartrate 5 Mg Tablet) 5 mg PO QHS PRN PRN PRN Reason: INSOMNIA Assessment/Plan Active and Suspected Problems Saddle pulmonary embolus (Acute) RECOMMENDATIONS: 1. Okay to transition from continuous heparin infusion to Eliquis twice daily. 2. Encourage incentive spirometer use and mobilize patient as tolerated. 3. Await results of echocardiogram. 4. The patient is medically stable for transfer out of the intensive care unit. 5. Recommend walking oximetry study prior to consideration for discharge home. IMPRESSIONS: 1. Acute hypoxemic respiratory insufficiency/syncope Most likely secondary to submassive PE noted on CTA chest. The patient remained systemically anticoagulated on a continuous heparin infusion. She has remained hemodynamically stable overnight with a small amount of fluid resuscitation. There is no need for lytic therapy. With this in mind, the patient can be transition to twice daily Eliquis from my perspective. Echocardiogram is currently pending. However, I would recommend lifelong anticoagulation moving forward. Wean supplemental oxygen as tolerated. Encourage incentive spirometer use and mobilize patient as tolerated. 2. Acute on chronic kidney disease Likely prerenal in etiology. Renal function has improved with supplemental IV fluid hydration. Continue to monitor urine output. No current indication for renal replacement therapy. 3. Recent COVID-19 pneumonia/dementia/advanced age Complicates care, management, recovery and prognosis. Continue home medications as indicated. This note was generated with [employer] software. It may contain incorrect words, spelling, and punctuation that were not noted in checking the note before signing. Inpatient E&M: 10736 Init Hosp L3
--- NOTE | 2020-02-28 05:55 | EKG12_ITS ---
Test Reason : MORNING EKG Blood Pressure : / mmHG Vent. Rate : 091 BPM Atrial Rate : 091 BPM P-R Int : 174 ms QRS Dur : 088 ms QT Int : 390 ms P-R-T Axes : 076 032 045 degrees QTc Int : 479 ms Normal sinus rhythm Low voltage QRS T wave abnormality, consider anterior ischemia Prolonged QT Abnormal ECG When compared with ECG of 27-FEB-2020 12:09, MANUAL COMPARISON REQUIRED, DATA IS UNCONFIRMED Confirmed by JENNIFER JACQUES, JANESSA ([id number]), index editor ZULAY EDDY ([id number]) on 02/28/2020 1:11:40 PM Referred By: ADITHYA Confirmed By:JANESSA RODRIGUEZ MD
--- NOTE | 2020-02-28 07:24 | PCM.PN.HOSP ---
Patient Problems: Active and Suspected Problems Saddle pulmonary embolus (Acute) Reason for Visit: Follow-up for bilateral saddle pulmonary embolism with mild hypotension. Objective: Patient's blood pressure on lower side. Denies any shortness of breath or chest pain or pressure. Patient does not have signs and symptoms of hypotension including dizziness, headache or lightheadedness. She denies any chronic cardiopulmonary disease including COPD, coronary artery disease or smoking. Physical General: Alert, Oriented x3, Cooperative HEENT: Atraumatic, PERRLA, EOMI, Normocephalic Oral: No Gingival or Mucosal Lesions/ Ulcerations Neck: Supple, No JVD, Negative Carotid Bruits Lungs: Air entry diminished in bilateral lung bases. No crepitation/rhonchi Cardiovascular: Regular rate, Regular Rhythm, Normal S1, Normal S2, No murmurs Abdomen: Bowel Sounds Present, Soft, Non Tender, Non-Distended : No renal angle tenderness. No suprapubic tenderness. Extremities: No edema, Capillary Refill Less than 3 Seconds Skin: No rashes, No breakdown Musculoskeletal: No Tenderness to Palpation of Joints or Extremities Neurological: Cranial nerves II-XII grossly intact, Deep Tendon Reflexes 2+/4 and Symmetrical, Neuro grossly intact Psych/Mental Status: Normal Affect, Appropriate. Vitals/I&O's: Vital Signs Temp Pulse Resp BP Pulse Ox 97.7 F L 90 19 H 99/56 L 91 02/28/20 04:00 02/28/20 06:00 02/28/20 06:00 02/28/20 06:00 02/28/20 06:00 Oxygen Flow Rate (L/min) 2 Oxygen Delivery Method Room Air Weight: 123 lb Body Mass Index (BMI) 19.6 Intake and Output for Last 24 Hours 02/26/20 02/27/20 02/28/20 23:59 23:59 23:59 Intake Total 1172.4 / 1172.4 1500 / 1500 Output Total 150 / 150 Balance 1172.4 / 1097.4 1350 / 1350 Laboratory Results 02/27/20 10:55: WBC 9.2, RBC 3.75 L, Hgb 11.9 L, Hct 37.5, MCV 100.0 H, MCH 31.7, MCHC 31.7 L, RDW Std Deviation 57.0 H, RDW Coeff of Kaye 15.6 H, Plt Count 292, MPV 9.8, Immature Gran % (Auto) 0.300, Neut % (Auto) 50.4, Lymph % (Auto) 40.1, [place] % (Auto) 7.8, Eos % (Auto) 0.9, Baso % (Auto) 0.5, Absolute Neuts (auto) 4.6, Absolute Lymphs (auto) 3.70, Nucleated RBC % 0 02/27/20 10:55: Sodium 140, Potassium 4.8, Chloride 106, Carbon Dioxide 23.0, Anion Gap 11, BUN 24 H, Creatinine 1.31 H, Estim Creat Clear Calc 30.31, Est GFR (MDRD) Af Amer 50 L, Est GFR (MDRD) Non-Af 41 L, BUN/Creatinine Ratio 18.3, Glucose 179 H, Calcium 9.2, Troponin I 0.297 H 02/27/20 10:55: B-Natriuretic Peptide 664.7 H 02/27/20 10:55: D-Dimer Quant (PE/DVT) > 20.00 H* 02/27/20 10:55: APTT 24.7 02/27/20 12:50: Urine Color Yellow, Urine Clarity Clear, Urine pH 5.0, Ur Specific [place] 1.020, Urine Protein Negative, Urine Glucose (UA) Normal, Urine Ketones Negative, Urine Occult Blood 25 H, Urine Nitrite Negative, Urine Bilirubin Negative, Urine Urobilinogen Normal, Ur Leukocyte Esterase Negative, Urine RBC 0 SEEN, Urine WBC 0 SEEN, Ur Squamous Epith Cells 0-5 SEEN, Urine Bacteria RARE, Hyaline Casts 10-25 SEEN, Urine Mucus 0 SEEN 02/27/20 12:50: Troponin I 0.292 H 02/27/20 13:55: Troponin I Cancelled 02/27/20 15:45: Troponin I 0.182 H 02/27/20 20:02: APTT 91.7 H* 02/27/20 : PT 13.0, INR 1.0 02/28/20 02:28: APTT 69.5 H 02/28/20 03:35: WBC 5.2, RBC 2.88 L, Hgb 9.1 L, Hct 29.1 L, MCV 101.0 H, MCH 31.6, MCHC 31.3 L, RDW Std Deviation 60.0 H, RDW Coeff of Kaye 16.2 H, Plt Count 202, MPV 9.9, Immature Gran % (Auto) 0.200, Neut % (Auto) 60.2, Lymph % (Auto) 27.9, [place] % (Auto) 9.6, Eos % (Auto) 1.3, Baso % (Auto) 0.8, Absolute Neuts (auto) 3.1, Absolute Lymphs (auto) 1.45, Nucleated RBC % 0 02/28/20 03:35: Sodium 143, Potassium 4.2, Chloride 115 H, Carbon Dioxide 22.0, Anion Gap 6, BUN 26 H, Creatinine 1.14 H, Estim Creat Clear Calc 32.75, Est GFR (MDRD) Af Amer 59 L, Est GFR (MDRD) Non-Af 49 L, BUN/Creatinine Ratio 22.8 H, Glucose 156 H, Calcium 8.1 L, Total Bilirubin 0.20, AST 36, ALT 29, Alkaline Phosphatase 73, Total Protein 5.8 L, Albumin 2.6 L, Globulin 3.2, Albumin/Globulin Ratio 0.8 L Current Medications Acetaminophen (Acetaminophen 325 Mg Tablet) 650 mg PO Q6H PRN PRN PRN Reason: Pain Score 1-10/Temp > 100.7 F Last Admin: 02/27/20 20:47 Dose: 650 mg Documented by: Donepezil HCl (Donepezil Hcl 10 Mg Tablet) 20 mg PO QHS [facility] Last Admin: 02/27/20 22:29 Dose: 20 mg Documented by: Heparin Sodium (Porcine) (Heparin Injection (Vial) 5,000 Unit/Ml Vial) 0 unit IV UD PRN; Protocol PRN Reason: dose adjustment Heparin Sodium/Dextrose () 25,000 units in 250 mls @ 8 mls/hr IV .[id number] [facility]; Protocol Last Titration: 02/27/20 20:30 Dose: 700 units/hr, 7 mls/hr Documented by: Sodium Chloride () 250 mls @ 15 mls/hr IV .[id number] PRN PRN Reason: Saline Flush Sodium Chloride () 250 mls @ 15 mls/hr IV .[id number] PRN PRN Reason: Additional IVPB Infusion Sodium Chloride () 1,000 mls @ 100 mls/hr IV .Q10H [facility] Last Admin: 02/28/20 02:30 Dose: 100 mls/hr Documented by: Influenza Virus Vaccine Quadrival (Influenza Vaccine (6mos+)/Pf 0.5 Ml Syringe) 0.5 ml IM .ONCE ONE Stop: 02/28/20 10:01 Nutritional Formula (Lactose Free) (Ensure Enlive 120 Ml Liquid) 120 ml PO 4X/DAY [facility] Last Admin: 02/27/20 22:29 Dose: 120 ml Documented by: Ondansetron HCl (Ondansetron 4 Mg/2 Ml Vial) 4 mg IV Q8H PRN PRN PRN Reason: NAUSEA/VOMITING Senna/Docusate Sodium (Senna/Docusate Sodium 1 Tablet) 2 tablet PO BID PRN PRN Reason: Constipation Sodium Chloride (0.9% Saline Lock 10 Ml Syringe) 10 - 40 ml IV UD PRN PRN Reason: SALINE FLUSH Last Admin: 02/28/20 03:37 Dose: 10 ml Documented by: Zolpidem Tartrate (Zolpidem Tartrate 5 Mg Tablet) 5 mg PO QHS PRN PRN PRN Reason: INSOMNIA STROKE Vital Signs/Narrative: Vital Signs Temp Pulse Resp BP Pulse Ox 02/28/20 06:00 90 19 H 99/56 L 91 02/28/20 05:00 94 23 H 102/62 93 02/28/20 04:00 97.7 F L 98 20 H 113/69 93 Medical Necessity - Tobacco Use Smoking Status: Never smoker Assessment/Plan All Active Problems Saddle pulmonary embolus (Acute) This is an 79 years old female patient presented to the emergency room because of syncopal episode, found to have saddle pulmonary embolism as well as hypotension which responded to IV fluid bolus and she is being admitted in ICU for further treatment. #1 acute saddle pulmonary embolism with extension to bilateral main pulmonary arteries most likely from recent COVID-19 pneumonia. Initially the patient was started on IV heparin drip. Anticoagulation subsequently changed to Eliquis at therapeutic dose. Patient not a candidate for thrombolytic his blood pressure is improved with IV fluid bolus. D-dimer was highly elevated more than 20. CTA chest reviewed. Troponin elevated 0.182. BNP 665. 2D echo suggestive of moderate global RV systolic dysfunction and moderate RV dilatation. Mild pulmonary hypertension with 2+ TR 2D echo reported as Normal LV size. Left ventricular systolic function is lower limits of normal. The estimated ejection fraction is 50 %. Moderately dilated right ventricle. Moderate global right ventricular systolic dysfunction. D shaped septum in diastole. Pulmonary artery systolic pressure is 45 mmHg. #2 acute kidney injury on stage III chronic kidney disease from dehydration/prerenal: Although her creatinine has been around her baseline but she is clinically dehydrated. BUN was 24, it was 10; 2 months ago, creatinine is 1.31, it was 0.782 months ago. Continue IV fluids, input output chart, electrolytes and kidney function monitoring. Discontinue Jimenez catheter. #3 abnormal cardiac enzymes: Troponin 0 0.297, 0.182. Likely due to acute saddle PE. EKG showed sinus tachycardia, no acute ischemic changes. 2D echo is done. #3 syncope/transient hypotension: Probably due to PE and hypotension. Blood pressure improved after IV fluid bolus. CT scan brain showed no acute findings. Rest as mentioned above #4 recent COVID-19 pneumonia: Patient was mildly hypoxic in the ED, pulse ox improved with oxygen. CTA chest revealed bilateral infiltrate. She has been afebrile, no leukocytosis. #5 dementia: Continue Aricept. #6 CODE STATUS: Full code. #7 DVT prophylaxis: On Eliquis Laboratory Results 02/27/20 15:45: Troponin I 0.182 H 02/27/20 20:02: APTT 91.7 H* 02/28/20 02:28: APTT 69.5 H 02/28/20 03:35: WBC 5.2, RBC 2.88 L, Hgb 9.1 L, Hct 29.1 L, MCV 101.0 H, MCH 31.6, MCHC 31.3 L, RDW Std Deviation 60.0 H, RDW Coeff of Kaye 16.2 H, Plt Count 202, MPV 9.9, Immature Gran % (Auto) 0.200, Neut % (Auto) 60.2, Lymph % (Auto) 27.9, [place] % (Auto) 9.6, Eos % (Auto) 1.3, Baso % (Auto) 0.8, Absolute Neuts (auto) 3.1, Absolute Lymphs (auto) 1.45, Nucleated RBC % 0 02/28/20 03:35: Sodium 143, Potassium 4.2, Chloride 115 H, Carbon Dioxide 22.0, Anion Gap 6, BUN 26 H, Creatinine 1.14 H, Estim Creat Clear Calc 32.75, Est GFR (MDRD) Af Amer 59 L, Est GFR (MDRD) Non-Af 49 L, BUN/Creatinine Ratio 22.8 H, Glucose 156 H, Calcium 8.1 L, Total Bilirubin 0.20, AST 36, ALT 29, Alkaline Phosphatase 73, Total Protein 5.8 L, Albumin 2.6 L, Globulin 3.2, Albumin/Globulin Ratio 0.8 L Inpatient E&M: 92513 Subs Hosp L3
--- NOTE | 2020-02-28 10:14 | CASEMGMT ---
Addendum entered by Ciera Wray 02/28/20 13:27: Daughter had told SW earlier if SNF needed they would want [facility]. Also, she is interested in a fci care assessment from [facility]. Referral faxed to [facility]. KENZIE Garcia Original Note: SW participated in ICU rounds, as per RN, pt is confused at present. SW called daughter to speak w/her about prior level of function and anticipated discharge plan. PCP: [facility] Specialists: Neuro, Torsten Preferred Pharmacy: [facility] Insurance/Prescription Benefit: [employer] Medicare LW/POA: Daughter is POA, papers not on file LNOK: Daughter Living arrangements/prior level of function: Pt is now living w/daughter in apartment, a few steps to get in. Daughter states she supervises pt while doing ADLs, she can bathe and use bathroom on her own but daughter watches her as pt has fallen. Daughter does the cooking, cleaning, driving, meds, and does help daughter wash her hair. Daughter put an alarm on the door as when pt initially came to stay w/her she tried to go out the door, she has since stopped doing that. She also took the knobs off the stove as a safety precaution. DME/SNF/HHC: Pt now is using a walker, bedside commode, and built in bench in the shower. Pt also has a wheelchair she can utilize at times. Pt does not have home O2. After the last admission pt went to [facility] for about two weeks, came to stay w/daughter on 12/31/19. Pt had [facility] after [facility], home care is not involved at present. SW spoke w/daughter about discharge plan. She would like for pt to return home if possible. She does think pt needs oxygen at home. SW explained that we will follow along to see how pt does, and if pt can go home will look at home oxygen and home care. SW explained if SNF is needed again, pt may have more options this time since she does not have COVID. Daughter states understanding. Plan: TBD, SW/KRYSTLE will continue to follow. KENZIE Garcia
[2020-02-28] MEDS: APIXABAN 5 MG TABLET 10 MG PO ×2 (10:30→21:08)
--- NOTE | 2020-02-28 13:50 | CHAPLAIN ---
Type of Pastoral Visit _x_ Initial Visit ___ Follow-up Visit ___ On-call Visit ___ General Patient Visit ___ Spiritual Assessment ___ Family Conference ___ Bereavement ___ Rapid Response ___ Code Blue ___ Other (describe below) Pastoral Care Referral From _x__ Patient ___ Family ___ Nurse ___ Physician ___ Steeping Press Tender ___ Commissary Manager ___ Other (describe below) Sacrament/Intervention _x__ Active listening ___ Anointing ___ Christianity ___ Bereavement ___ Communion ___ Brenda exploration ___ _x__ Life review _x__ Prayer ___ Reconciliation ___ Sacrament of Sick _x__ Supportive presence ___ Wedding ___ Other (describe below) Pastoral Comments
[2020-02-28] MEDS: Acetaminophen 325 MG Tablet 650 MG PO (21:08)
[2020-02-28] MEDS: Zolpidem Tartrate 5 MG Tablet PO (21:08)
[2020-02-28] MEDS: Donepezil HCl 10 MG Tablet 20 MG PO (21:08)
--- NOTE | 2020-02-28 22:11 | PCS.PANDOC ---
PANDEMIC DOCUMENTATION INITIATED: Date: 02/27/20 Time: 15:25
[2020-02-29] VITALS (13 sets, daily range): BP systolic 124–144; BP diastolic 56–91; PULSE 67–114; RESP 18–20; TEMP 36.6–37.1; O2SAT 94–98
[2020-02-29] MEDS: Acetaminophen 325 MG Tablet 650 MG PO ×2 (06:22→19:12)
--- NOTE | 2020-02-29 06:24 | EKG12_ITS ---
Test Reason : Blood Pressure : / mmHG Vent. Rate : 107 BPM Atrial Rate : 107 BPM P-R Int : 158 ms QRS Dur : 090 ms QT Int : 352 ms P-R-T Axes : 080 080 074 degrees QTc Int : 469 ms Sinus tachycardia Low Voltage QRS (Limb Leads Poor R- wave progression Confirmed by KRISTIN JACQUES, RENUKA ([id number]), fan mail editor QUITA COATES ([id number]) on 03/02/2020 11:39:26 AM Referred By: SUMAN Confirmed By:RENUKA FOSTER MD
[2020-02-29] MEDS: Aspirin 325 MG Tablet PO (07:49)
[2020-02-29] MEDS: APIXABAN 5 MG TABLET 10 MG PO ×2 (07:49→20:36)
[2020-02-29] MEDS: 0.9% Saline Lock 10 ML Syringe IV (10:35)
[2020-02-29] MEDS: Furosemide 40 MG/4 ML Vial IV (10:35)
--- NOTE | 2020-02-29 14:20 | PN_ITS ---
Patient Problems: Active and Suspected Problems Saddle pulmonary embolus (Acute) Subjective: The patient was seen and examined at the bedside this morning. Events from the last 24 hours have been reviewed. The patient is currently afebrile, hemodynamically stable and maintaining appropriate oxygen saturations on 4 L/min via nasal cannula. The patient denies any shortness of breath. She is currently anticoagulated on Eliquis. Objective: The patient's most recent lab work, culture data and imaging studies have all been personally reviewed. Surface echocardiogram revealed normal LV size with an ejection fraction of 50%. Moderate global RV systolic dysfunction was noted with a pulmonary artery systolic pressure of 45 mmHg. - Physical Exam Vitals/I&O's: Vital Signs Temp Pulse Resp BP Pulse Ox 98.3 F 105 H 20 H 133/84 H 97 02/29/20 07:55 02/29/20 11:54 02/29/20 07:55 02/29/20 07:55 02/29/20 07:55 Oxygen Flow Rate (L/min) 4 Oxygen Delivery Method Nasal Cannula Weight: 127 lb 13.89 oz Body Mass Index (BMI) 19.6 Intake and Output for Last 24 Hours 02/27/20 02/28/20 02/29/20 23:59 23:59 23:59 Intake Total 1172.4 / 1172.4 3838.35 / 3838.35 480 / 480 Output Total 225 / 225 Balance 1172.4 / 1097.4 3613.35 / 3613.35 480 / 480 General: Alert, Cooperative, No apparent distress HEENT: Atraumatic, Normocephalic Oral: No Gingival or Mucosal Lesions/ Ulcerations Neck: Supple, No Nodes, Trachea Midline Lungs: Diminished Cardiovascular: Regular rate, Regular Rhythm Abdomen: Bowel Sounds Present, Soft, Non Tender Extremities: No clubbing, No cyanosis, No edema Skin: No breakdown Musculoskeletal: No Tenderness to Palpation of Joints or Extremities Lymphatic: No Cervical, Supraclavicular, or Inguinal Adenopathy Neurological: Neuro grossly intact Psych/Mental Status: Normal Affect, Appropriate Labs (Last 48 Hours) 02/27/20 02/27/20 02/27/20 15:45 20:02 Unknown WBC RBC Hgb Hct MCV MCH MCHC RDW Std Deviation RDW Coeff of Kaye Plt Count MPV Immature Gran % (Auto) Neut % (Auto) Lymph % (Auto) Merrick % (Auto) Eos % (Auto) Baso % (Auto) Absolute Neuts (auto) Absolute Lymphs (auto) Nucleated RBC % PT 13.0 INR 1.0 APTT 91.7 H* Sodium Potassium Chloride Carbon Dioxide Anion Gap BUN Creatinine Estim Creat Clear Calc Est GFR (MDRD) Af Amer Est GFR (MDRD) Non-Af BUN/Creatinine Ratio Glucose Calcium Total Bilirubin AST ALT Alkaline Phosphatase Troponin I 0.182 H Total Protein Albumin Globulin Albumin/Globulin Ratio 02/28/20 02/28/20 02/28/20 02:28 03:35 03:35 WBC 5.2 RBC 2.88 L Hgb 9.1 L Hct 29.1 L MCV 101.0 H MCH 31.6 MCHC 31.3 L RDW Std Deviation 60.0 H RDW Coeff of Kaye 16.2 H Plt Count 202 MPV 9.9 Immature Gran % (Auto) 0.200 Neut % (Auto) 60.2 Lymph % (Auto) 27.9 Merrick % (Auto) 9.6 Eos % (Auto) 1.3 Baso % (Auto) 0.8 Absolute Neuts (auto) 3.1 Absolute Lymphs (auto) 1.45 Nucleated RBC % 0 PT INR APTT 69.5 H Sodium 143 Potassium 4.2 Chloride 115 H Carbon Dioxide 22.0 Anion Gap 6 BUN 26 H Creatinine 1.14 H Estim Creat Clear Calc 32.75 Est GFR (MDRD) Af Amer 59 L Est GFR (MDRD) Non-Af 49 L BUN/Creatinine Ratio 22.8 H Glucose 156 H Calcium 8.1 L Total Bilirubin 0.20 AST 36 ALT 29 Alkaline Phosphatase 73 Troponin I Total Protein 5.8 L Albumin 2.6 L Globulin 3.2 Albumin/Globulin Ratio 0.8 L 02/29/20 02/29/20 02/29/20 06:54 09:49 12:53 WBC RBC Hgb Hct MCV MCH MCHC RDW Std Deviation RDW Coeff of Kaye Plt Count MPV Immature Gran % (Auto) Neut % (Auto) Lymph % (Auto) Merrick % (Auto) Eos % (Auto) Baso % (Auto) Absolute Neuts (auto) Absolute Lymphs (auto) Nucleated RBC % PT INR APTT Sodium Potassium Chloride Carbon Dioxide Anion Gap BUN Creatinine Estim Creat Clear Calc Est GFR (MDRD) Af Amer Est GFR (MDRD) Non-Af BUN/Creatinine Ratio Glucose Calcium Total Bilirubin AST ALT Alkaline Phosphatase Troponin I 0.100 H 0.101 H 0.094 H Total Protein Albumin Globulin Albumin/Globulin Ratio Clinical Impression(s) from Imaging Studies Chest X-Ray 02/27/20 10:48 IMPRESSION: No significant change. No active pulmonary disease. Electronically Signed: Elliot Montoya MD at 12:18 EST Tel , Service support , Brain CT 02/27/20 11:17 IMPRESSION: 1. Chronic involutional changes of the brain. 2. No acute intracranial process. Electronically Signed: Elliot Montoya MD at 12:10 EST Tel , Service support , Chest CTA 02/27/20 12:15 IMPRESSION: 1. Saddle pulmonary embolism extending to the main pulmonary arteries bilaterally and into the peripheral branches. 2. Patchy bilateral infiltrates consistent with multifocal pneumonia. Covid 19 pneumonia cannot be excluded. Electronically Signed: Elliot Montoya MD at 13:01 EST Tel , Service support , ADDENDUM: 02/27/20 1319 IMPRESSION: 1. Saddle pulmonary embolism extending to the main pulmonary arteries bilaterally and into the peripheral branches. 2. Patchy bilateral infiltrates consistent with multifocal pneumonia. Covid 19 pneumonia cannot be excluded. N.B. : The above information has been verbally conveyed by Elliot Montoya MD to Dr. Tee MD, on 02/27/2020 13:13:00 (ET). Electronically Signed: Elliot Montoya MD at 13:01 EST Tel , Service support , Current Medications Acetaminophen (Acetaminophen 325 Mg Tablet) 650 mg PO Q6H PRN PRN PRN Reason: Pain Score 1-10/Temp > 100.7 F Last Admin: 02/29/20 06:22 Dose: 650 mg Documented by: Apixaban (Apixaban 5 Mg Tablet) 10 mg PO BID [facility] Last Admin: 02/29/20 07:49 Dose: 10 mg Documented by: Donepezil HCl (Donepezil Hcl 10 Mg Tablet) 20 mg PO QHS [facility] Last Admin: 02/28/20 21:08 Dose: 20 mg Documented by: Sodium Chloride () 250 mls @ 15 mls/hr IV .[id number] PRN PRN Reason: Saline Flush Sodium Chloride () 250 mls @ 15 mls/hr IV .[id number] PRN PRN Reason: Additional IVPB Infusion Nutritional Formula (Lactose Free) (Ensure Enlive 120 Ml Liquid) 120 ml PO 4X/DAY [facility] Last Admin: 02/29/20 07:50 Dose: 120 ml Documented by: Ondansetron HCl (Ondansetron 4 Mg/2 Ml Vial) 4 mg IV Q8H PRN PRN PRN Reason: NAUSEA/VOMITING Senna/Docusate Sodium (Senna/Docusate Sodium 1 Tablet) 2 tablet PO BID PRN PRN Reason: Constipation Sodium Chloride (0.9% Saline Lock 10 Ml Syringe) 10 - 40 ml IV UD PRN PRN Reason: SALINE FLUSH Last Admin: 02/29/20 10:35 Dose: 10 ml Documented by: Zolpidem Tartrate (Zolpidem Tartrate 5 Mg Tablet) 5 mg PO QHS PRN PRN PRN Reason: INSOMNIA Last Admin: 02/28/20 21:08 Dose: 5 mg Documented by: Medical Necessity - Tobacco Use Smoking Status: Never smoker Assessment/Plan All Active Problems Saddle pulmonary embolus (Acute) RECOMMENDATIONS: 1. Continue systemic anticoagulation with Eliquis. 2. Wean supplemental oxygen to maintain saturations at or above 90%. 3. Encourage incentive spirometer use and mobilize patient as tolerated. 4. Recommend walking oximetry study prior to consideration for discharge home. IMPRESSIONS: 1. Acute hypoxemic respiratory insufficiency/syncope Most likely secondary to submassive PE noted on CTA chest. Plan to continue systemic anticoagulation with Eliquis as ordered. The patient has remained hemodynamically stable. Echocardiogram did reveal some RV dysfunction and pulmonary hypertension. Recommend continue to wean supplemental oxygen to maintain saturations at or above 90%. Encourage incentive spirometer use and mobilize patient as tolerated. 2. Acute on chronic kidney disease Likely prerenal in etiology. Renal function has improved with supplemental IV fluid hydration. Continue to monitor urine output. No current indication for renal replacement therapy. 3. Recent COVID-19 pneumonia/dementia/advanced age Complicates care, management, recovery and prognosis. Continue home medications as indicated. This note was generated with [employer] dictation software. It may contain incorrect words, spelling, and punctuation that were not noted in checking the note before signing. Inpatient E&M: 64658 Subs Hosp L2
--- NOTE | 2020-02-29 14:24 | PCM.PN.HOSP ---
Patient Problems: Active and Suspected Problems Saddle pulmonary embolus (Acute) Reason for Visit: Follow-up for acute hypoxic respiratory failure secondary to saddle embolus Objective: Patient is obviously short of breath on 4 L of oxygen. Heart rate fluctuates between 70 to 105/min. Sinus rhythm. As per nursing staff, patient also confused and disoriented with respect to time. Sometimes he thinks he is in the restroom Physical exam General: Awake. Disoriented to time and place. Oriented speech HEENT: Atraumatic, PERRLA, EOMI, Normocephalic Oral: No Gingival or Mucosal Lesions/ Ulcerations Neck: Supple, No JVD, Negative Carotid Bruits Lungs: Air entry diminished in bilateral lung bases. No crepitation/rhonchi. Hypoxia Cardiovascular: Regular rate, Regular Rhythm, Normal S1, Normal S2, No murmurs Abdomen: Bowel Sounds Present, Soft, Non Tender, Non-Distended : No renal angle tenderness. No suprapubic tenderness. Extremities: No edema, Capillary Refill Less than 3 Seconds Skin: No rashes, No breakdown Musculoskeletal: No Tenderness to Palpation of Joints or Extremities Neurological: Cranial nerves II-XII grossly intact, Deep Tendon Reflexes 2+/4 and Symmetrical, Neuro grossly intact Psych/Mental Status: Confused and disoriented Vitals/I&O's: Vital Signs Temp Pulse Resp BP Pulse Ox 98.3 F 105 H 20 H 133/84 H 97 02/29/20 07:55 02/29/20 11:54 02/29/20 07:55 02/29/20 07:55 02/29/20 07:55 Oxygen Flow Rate (L/min) 4 Oxygen Delivery Method Nasal Cannula Weight: 127 lb 13.89 oz Body Mass Index (BMI) 19.6 Intake and Output for Last 24 Hours 02/27/20 02/28/20 02/29/20 23:59 23:59 23:59 Intake Total 1172.4 / 1172.4 3838.35 / 3838.35 480 / 480 Output Total 225 / 225 Balance 1172.4 / 1097.4 3613.35 / 3613.35 480 / 480 Laboratory Results 02/29/20 06:54: Troponin I 0.100 H 02/29/20 09:49: Troponin I 0.101 H 02/29/20 12:53: Troponin I 0.094 H Current Medications Acetaminophen (Acetaminophen 325 Mg Tablet) 650 mg PO Q6H PRN PRN PRN Reason: Pain Score 1-10/Temp > 100.7 F Last Admin: 02/29/20 06:22 Dose: 650 mg Documented by: Apixaban (Apixaban 5 Mg Tablet) 10 mg PO BID COUNT INCLUDES [facility] Last Admin: 02/29/20 07:49 Dose: 10 mg Documented by: Donepezil HCl (Donepezil Hcl 10 Mg Tablet) 20 mg PO QHS COUNT INCLUDES THE [facility] Last Admin: 02/28/20 21:08 Dose: 20 mg Documented by: Sodium Chloride () 250 mls @ 15 mls/hr IV .[id number] PRN PRN Reason: Saline Flush Sodium Chloride () 250 mls @ 15 mls/hr IV .[id number] PRN PRN Reason: Additional IVPB Infusion Nutritional Formula (Lactose Free) (Ensure Enlive 120 Ml Liquid) 120 ml PO 4X/DAY COUNT INCLUDES THE [facility] Last Admin: 02/29/20 07:50 Dose: 120 ml Documented by: Ondansetron HCl (Ondansetron 4 Mg/2 Ml Vial) 4 mg IV Q8H PRN PRN PRN Reason: NAUSEA/VOMITING Senna/Docusate Sodium (Senna/Docusate Sodium 1 Tablet) 2 tablet PO BID PRN PRN Reason: Constipation Sodium Chloride (0.9% Saline Lock 10 Ml Syringe) 10 - 40 ml IV UD PRN PRN Reason: SALINE FLUSH Last Admin: 02/29/20 10:35 Dose: 10 ml Documented by: Zolpidem Tartrate (Zolpidem Tartrate 5 Mg Tablet) 5 mg PO QHS PRN PRN PRN Reason: INSOMNIA Last Admin: 02/28/20 21:08 Dose: 5 mg Documented by: STROKE Vital Signs/Narrative: Vital Signs Pulse 02/29/20 11:54 105 H Medical Necessity - Tobacco Use Smoking Status: Never smoker Assessment/Plan All Active Problems Saddle pulmonary embolus (Acute) This is an 79 years old female patient presented to the emergency room because of syncopal episode, found to have saddle pulmonary embolism as well as hypotension which responded to IV fluid bolus and she is being admitted in ICU for further treatment. #1 acute saddle pulmonary embolism with extension to bilateral main pulmonary arteries most likely from recent COVID-19 pneumonia. Initially the patient was started on IV heparin drip. Anticoagulation subsequently changed to Eliquis at therapeutic dose. Patient not a candidate for thrombolytic his blood pressure is improved with IV fluid bolus. D-dimer was highly elevated more than 20. CTA chest reviewed. Troponin elevated 0.182. BNP 665. 2D echo suggestive of moderate global RV systolic dysfunction and moderate RV dilatation. Mild pulmonary hypertension with 2+ TR 2D echo reported as Normal LV size. Left ventricular systolic function is lower limits of normal. The estimated ejection fraction is 50 %. Moderately dilated right ventricle. Moderate global right ventricular systolic dysfunction. D shaped septum in diastole. Pulmonary artery systolic pressure is 45 mmHg. 02/28: Patient is still short of breath and hypoxic. Continue incentive spirometry and chest physiotherapy. IV heparin changed to Eliquis 10 mg twice daily yesterday. Aggressive incentive spirometry. #2 acute kidney injury on stage III chronic kidney disease from dehydration/prerenal: Although her creatinine has been around her baseline but she is clinically dehydrated. BUN was 24, it was 10; 2 months ago, creatinine is 1.31, it was 0.782 months ago. Continue IV fluids, input output chart, electrolytes and kidney function monitoring. Discontinue Jimenez catheter. #3 abnormal cardiac enzymes: Troponin 0 0.297, 0.182. Likely due to acute saddle PE. EKG showed sinus tachycardia, no acute ischemic changes. 2D echo is done. #3 syncope/transient hypotension: Probably due to PE and hypotension. Blood pressure improved after IV fluid bolus. CT scan brain showed no acute findings. Rest as mentioned above #4 recent COVID-19 pneumonia: Patient was mildly hypoxic in the ED, pulse ox improved with oxygen. CTA chest revealed bilateral infiltrate. She has been afebrile, no leukocytosis. #5 dementia: Continue Aricept. #6 CODE STATUS: Full code. #7 DVT prophylaxis: On Eliquis Laboratory Results 02/29/20 06:54: Troponin I 0.100 H 02/29/20 09:49: Troponin I 0.101 H 02/29/20 12:53: Troponin I 0.094 H Inpatient E&M: 72254 Subs Hosp L2
[2020-02-29] MEDS: Zolpidem Tartrate 5 MG Tablet PO (20:35)
[2020-02-29] MEDS: Donepezil HCl 10 MG Tablet 20 MG PO (20:36)
[2020-03-01] VITALS (10 sets, daily range): BP systolic 106–114; BP diastolic 58–73; PULSE 79–99; RESP 16–20; TEMP 36.7–37; O2SAT 93–98
[2020-03-01 06:16] LABS: Absolute Lymphocyte Count 1.47 X10^3/uL (0.83-4.51); Absolute Neutrophil Count 4.6 X10^3/uL (2.0-7.7); Basophil# 0.03 X10^3/uL; Basophil% 0.4 % (0-1); Eosinophils% 2.8 % (0-5); Hematocrit 29.3 % (37-47); Lymphocyte # 1.47 X10^3/ul (4.0); Lymphocyte % 20.4 % (19-41); Mean Corp Hgb Conc 30.7 g/dL (32-36); Mean Corpuscular Hgb 31.3 pg (27.0-32.0); Mean Corpuscular Volume 101.7 fL (81-99); Mean Platelet Vol. 10.5 fl (6.2-12.0); Monocyte# 0.86 X10^3/uL; Monocyte% 11.9 % (0-10); NRBC Flagged by Analyzer 0 % (0-5); Neutrophil # 4.64 X10^3/uL (2.7-7.7); Neutrophil % 64.2 % (47-70); Platelet Count 222 K/mm3 (150-450); RBC Distribution Width CV 16.7 % (11.6-14.6); RBC Distribution Width SD 62.4 fl (35.1-43.9); Red Blood Count 2.88 M/mm3 (4.2-5.4); White Blood Count 7.2 K/mm3 (4.4-11.0)
[2020-03-01 06:36] LABS: Anion Gap 6 (5-15); BUN 20 mg/dL (7-18); BUN/Creat Ratio 20.8 RATIO (10-20); Calcium,Total 8.6 mg/dL (8.5-10.1); Chloride 112 mmol/L (98-107); Creatinine, Serum 0.96 mg/dL (0.55-1.02); EST Glomerular Filtration Rate 59 mL/min (>60); Est Glom Filt Rate - Afr Amer 72 mL/min (>60); Estimated Creatinine Clearance 41.07 ml/min; Glucose 92 mg/dL (74-106); Potassium 3.9 mmol/L (3.5-5.1); Sodium Level 142 mmol/L (136-145)
--- NOTE | 2020-03-01 08:32 | DS.PCM_ITS ---
Discharge Date and Diagnosis - Problem List Patient Problems: Active and Suspected Problems Saddle pulmonary embolus (Acute) Date of Admission: 02/27/20 Date of Discharge: 03/01/20 - Primary Discharge Diagnosis Acute Problems: Active Problems Saddle pulmonary embolus (Acute) - Secondary Discharge Diagnosis Chronic Problems: Chronic Problems Anemia (Chronic) Dementia (Chronic) CKD (chronic kidney disease), stage III (Chronic) Hospital Course and Treatment Operations: None Summary of Care Provided: This is an 79 years old female patient presented to the emergency room because of syncopal episode, found to have saddle pulmonary embolism as well as hypotension which responded to IV fluid bolus and she is being admitted in ICU for further treatment. #1 acute saddle pulmonary embolism with extension to bilateral main pulmonary arteries most likely from recent COVID-19 pneumonia. Initially the patient was started on IV heparin drip. Anticoagulation subsequently changed to Eliquis at therapeutic dose. Patient not a candidate for thrombolytic his blood pressure is improved with IV fluid bolus. D-dimer was highly elevated more than 20. CTA chest reviewed. Troponin elevated 0.182. BNP 665. 2D echo suggestive of moderate global RV systolic dysfunction and moderate RV dilatation. Mild pulmonary hypertension with 2+ TR 2D echo reported as Normal LV size. Left ventricular systolic function is lower limits of normal. The estimated ejection fraction is 50 %. Moderately dilated right ventricle. Moderate global right ventricular systolic dysfunction. D shaped septum in diastole. Pulmonary artery systolic pressure is 45 mmHg. Patient was transferred to PCU and hypoxia resolved with incentive spirometry and chest physiotherapy. Patient had 2 days of Eliquis and discharged on Eliquis 10 mg twice daily for 5 more days and 5 mg twice daily to continue lifelong unless she has major bleeding episode or other contraindication 2. 2D echo suggestive of mild left ventricular systolic heart failure, clinically seems chronic in nature and new right ventricular failure with dilatation secondary to saddle embolus. Her heart rate in 80-100/min. Prescription low-dose metoprolol succinate 12.5 mg sent to the patient's pharmacy #2 acute kidney injury on stage III chronic kidney disease from d ehydration/prerenal: Although her creatinine has been around her baseline but she is clinically dehydrated. BUN was 24, it was 10; 2 months ago, creatinine is 1.31, it was 0.782 months ago. Continue IV fluids, input output chart, electrolytes and kidney function monitoring. Jimenez catheter discontinued. Acute kidney injury resolved. #3 abnormal cardiac enzymes: Troponin 0 0.297, 0.182. Likely due to acute saddle PE. EKG showed sinus tachycardia, no acute ischemic changes. #3 syncope/transient hypotension: Probably due to PE and hypotension. Blood pressure improved after IV fluid bolus. CT scan brain showed no acute findings. Rest as mentioned above #4 recent COVID-19 pneumonia: Patient was mildly hypoxic in the ED, pulse ox improved with oxygen. CTA chest revealed bilateral infiltrate. She has been afebrile, no leukocytosis. #5 dementia: Continue Aricept. #6 CODE STATUS: Full code. #7 DVT prophylaxis: On Eliquis Discharge medication reconciliation done. Discharge follow-up instructions completed. Discharge process discussed with the patient and all questions were answered to patient's satisfaction. Advised to follow-up with Dr. Ortiz in pulmonary clinic. A prescription for Eliquis and metoprolol sent to the patient's pharmacy Total time spent, exact 35 minutes on discharge meds reconciliation, examination, coordination of care with nurses and ancillary staff, review of imaging and blood test and discussion with the patient on follow-up instructions Patient Problems: Active and Suspected Problems Saddle pulmonary embolus (Acute) Objective: Heart rate and blood pressure is in normal range. Patient currently 95% on room air at rest. On ambulation 93% on room air. Physical exam General: Awake. Alert, oriented x3. HEENT: Atraumatic, PERRLA, EOMI, Normocephalic Oral: No Gingival or Mucosal Lesions/ Ulcerations Neck: Supple, No JVD, Negative Carotid Bruits Lungs: Air entry diminished in bilateral lung bases. No crepitation/rhonchi. Hypoxia resolved. Cardiovascular: Regular rate, Regular Rhythm, Normal S1, Normal S2, No murmurs Abdomen: Bowel Sounds Present, Soft, Non Tender, Non-Distended : No renal angle tenderness. No suprapubic tenderness. Extremities: No edema, Capillary Refill Less than 3 Seconds Skin: No rashes, No breakdown Musculoskeletal: No Tenderness to Palpation of Joints or Extremities Neurological: Cranial nerves II-XII grossly intact, Deep Tendon Reflexes 2+/4 and Symmetrical, Neuro grossly intact Psych/Mental Status: Confused and disoriented - Physical Exam Vitals/I&O's: Vital Signs Temp Pulse Resp BP Pulse Ox 98.6 F 89 18 106/58 L 98 03/01/20 03:08 03/01/20 07:30 03/01/20 03:08 03/01/20 03:08 03/01/20 03:08 Oxygen Flow Rate (L/min) 2 Oxygen Delivery Method Nasal Cannula Weight: 124 lb 12.506 oz Body Mass Index (BMI) 19.6 Intake and Output for Last 24 Hours 02/28/20 02/29/20 03/01/20 23:59 23:59 23:59 Intake Total 3838.35 / 3838.35 1320 / 1320 240 / 240 Output Total 225 / 225 Balance 3613.35 / 3613.35 1320 / 1320 240 / 240 Laboratory Results 02/29/20 09:49: Troponin I 0.101 H 02/29/20 12:53: Troponin I 0.094 H 03/01/20 05:32: WBC 7.2, RBC 2.88 L, Hgb 9.0 L, Hct 29.3 L, MCV 101.7 H, MCH 31.3, MCHC 30.7 L, RDW Std Deviation 62.4 H, RDW Coeff of Kaye 16.7 H, Plt Count 222, MPV 10.5, Immature Gran % (Auto) 0.300, Neut % (Auto) 64.2, Lymph % (Auto) 20.4, Forrest % (Auto) 11.9 H, Eos % (Auto) 2.8, Baso % (Auto) 0.4, Absolute Neuts (auto) 4.6, Absolute Lymphs (auto) 1.47, Nucleated RBC % 0 03/01/20 05:32: Sodium 142, Potassium 3.9, Chloride 112 H, Carbon Dioxide 24.0, Anion Gap 6, BUN 20 H, Creatinine 0.96, Estim Creat Clear Calc 41.07, Est GFR (MDRD) Af Amer 72, Est GFR (MDRD) Non-Af 59 L, BUN/Creatinine Ratio 20.8 H, Glucose 92, Calcium 8.6 Current Medications Acetaminophen (Acetaminophen 325 Mg Tablet) 650 mg PO Q6H PRN PRN PRN Reason: Pain Score 1-10/Temp > 100.7 F Last Admin: 02/29/20 19:12 Dose: 650 mg Documented by: Apixaban (Apixaban 5 Mg Tablet) 10 mg PO BID [facility] Last Admin: 02/29/20 20:36 Dose: 10 mg Documented by: Donepezil HCl (Donepezil Hcl 10 Mg Tablet) 20 mg PO QHS [facility] Last Admin: 02/29/20 20:36 Dose: 20 mg Documented by: Sodium Chloride () 250 mls @ 15 mls/hr IV .[id number] PRN PRN Reason: Saline Flush Sodium Chloride () 250 mls @ 15 mls/hr IV .[id number] PRN PRN Reason: Additional IVPB Infusion Nutritional Formula (Lactose Free) (Ensure Enlive 120 Ml Liquid) 120 ml PO 4X/DAY [facility] Last Admin: 02/29/20 20:35 Dose: 120 ml Documented by: Ondansetron HCl (Ondansetron 4 Mg/2 Ml Vial) 4 mg IV Q8H PRN PRN PRN Reason: NAUSEA/VOMITING Senna/Docusate Sodium (Senna/Docusate Sodium 1 Tablet) 2 tablet PO BID PRN PRN Reason: Constipation Sodium Chloride (0.9% Saline Lock 10 Ml Syringe) 10 - 40 ml IV UD PRN PRN Reason: SALINE FLUSH Last Admin: 02/29/20 10:35 Dose: 10 ml Documented by: Zolpidem Tartrate (Zolpidem Tartrate 5 Mg Tablet) 5 mg PO QHS PRN PRN PRN Reason: INSOMNIA Last Admin: 02/29/20 20:35 Dose: 5 mg Documented by: Home Medications: Medications to take at Discharge Donepezil HCl [Aricept] 20 mg PO QHS 04/10/18 Acetaminophen [Tylenol Tablet] 650 mg PO Q6H PRN PRN tab 12/17/19 Apixaban [Eliquis] 10 mg PO BID #60 tab 03/01/20 Metoprolol Succinate 12.5 mg PO DAILY #30 tab.er.24h 03/01/20 Senna/Docusate Sodium [Senokot-S] 2 tab PO BID PRN tab 03/01/20 Following Prescriptions Were Given to Patient: Apixaban [Eliquis] 10 mg PO BID #60 tab Transmission Status: Received by [facility]30 Metoprolol Succinate 12.5 mg PO DAILY #30 tab.er.24h Transmission Status: Received by [facility] #30 Primary Care Physician: Skinny Bains MD [Primary Care Provider] - Medical Necessity - Tobacco Use Smoking Status: Never smoker Meaningful Use Info Meaningful Use Diagnoses (Choose all that apply): VTE - VTE Anticoag overlap given w/in hospital stay or rx'd at dc?: No Pt receive overlap for 5 days?: No Reason overlap not ordered, prescribed, or given for 5 days: Procedure Not Indicated - Patient on [facility] Inpatient E&M: [id number] [facility]
--- NOTE | 2020-03-01 08:32 | PCM.DC ---
- Discharge Diagnoses Current Active Problems: Current Active and Chronic Problems Saddle pulmonary embolus (Acute) Anemia (Chronic) Dementia (Chronic) CKD (chronic kidney disease), stage III (Chronic) You will use the following diet at home:: Cardiac Your food should be the consistency of: Regular Your liquids should be the consistency of: Regular/Thin Discharge Activity: May Not Drive Weight Bearing Status: Weight bearing as tolerated Call your doctor if you observe: Fever of 101 or Higher, Coldness, Increased Pain, Numbness or Tingling, Change in Color, Inability to urinate, Inability to have a bowel movement, Using more than one pad per hour, Shortness of breath, Dizziness, Fainting spells, Swelling in the ankles, Chest pain, Prolonged hiccoughing, Increased palpitations (irregular heartbeat), Calf discomfort, Uncontrolled pain Allergies/Adverse Reactions: Allergies No Known Allergies Allergy (Verified 02/27/20 10:41) Medications to take at Discharge Donepezil HCl [Aricept] 20 mg PO QHS 04/10/18 Acetaminophen [Tylenol Tablet] 650 mg PO Q6H PRN PRN tab 12/17/19 Apixaban [Eliquis] 10 mg PO BID #60 tab 03/01/20 Metoprolol Succinate 12.5 mg PO DAILY #30 tab.er.24h 03/01/20 Senna/Docusate Sodium [Senokot-S] 2 tablet PO BID PRN tablet 03/01/20 The following prescriptions were given: Apixaban [Eliquis] 10 mg PO BID #60 tab Transmission Status: Pending to [facility] Metoprolol Succinate 12.5 mg PO DAILY #30 tab.er.24h Transmission Status: Sent to [facility] Primary Care Physician: Skinny Bains MD [Primary Care Provider] - Please follow up with your Primary Care Physician in: In 2 weeks Test Results: Test results from this visit will be discussed in further detail at your follow-up appointment, if applicable. Please Follow Up With: Shashank Ortiz DO When: In 2 weeks with Yanely Andre
[2020-03-01] MEDS: APIXABAN 5 MG TABLET 10 MG PO (09:02)
--- NOTE | 2020-03-01 11:10 | CM.UR ---
Addendum entered by Saumya Vernon 03/01/20 13:53: Referral was sent to [facility] this am and call to [facility] at that time and they state no concerns with taking pt back at this time. Per Noemy ALDANA, pt does not qualify for home oxygen at this time. Call to [facility] as Eliquis previously e-scribed to them and per tech, pt's cost is $20.83 at this time. Call to daughterElsa, to update on all at this time, voices understanding and states she will be here at about 1430 to pick pt up. Noemy ALDANA aware and provided Eliquis 30 day free trial to give to daughter with discharge instructions. DaughterElsa, voices no further questions/concerns/needs at this time. Cecy ALDANA CM Original Note: Call to pt's daughterElsa, at this time and updated on therapy notes and possible home oxygen need, voices understanding. Elsa states she would like to bring pt home at this time and states would like [facility] set up for SN, PT/OT as pt was just discharged from them. Daughter declines any further [facility] list at this time. Elsa states she is with pt 09/09. Daughter aware that pt will also go home on Eliquis and this RN CM will call and check on cost prior to discharge. After verbal list of DME companies provided to daughter at this time, she states she would like [facility] if pt does qualify for home oxygen. Daughter voices no further questions/concerns/needs at this time and this RN CM advised her would notify her oxygen need and Eliquis cost once obtained, voices understanding. Cecy ALDANA CM
[2020-03-01] MEDS: Metoprolol(XL)Succ 25 MG Tablet 12.5 MG PO (11:42)
--- NOTE | 2020-03-01 13:33 | PHA.DC.MR ---
Pharmacy Service has performed discharge medication reconciliation for this patient. The patient's discharge medication list was reviewed for discrepancies and discrepancies were resolved. Home Medications Donepezil HCl [Aricept] 20 mg PO QHS 04/10/18 Acetaminophen [Tylenol Tablet] 650 mg PO Q6H PRN PRN tab 12/17/19 Apixaban [Eliquis] 10 mg PO BID #60 tab 03/01/20 Metoprolol Succinate 12.5 mg PO DAILY #30 tab.er.24h 03/01/20 Senna/Docusate Sodium [Senokot-S] 2 tab PO BID PRN tab 03/01/20
--- NOTE | 2020-03-01 13:46 | PCM.PN.PUL ---
Patient Problems: Active and Suspected Problems Saddle pulmonary embolus (Acute) Subjective: The patient was seen and examined at the bedside this morning. Events from the last 24 hours have been reviewed. The patient is currently afebrile, hemodynamically stable and maintaining appropriate oxygen saturations on 2 L/min via nasal cannula. No overnight issues were identified. Objective: The patient's most recent lab work, culture data and imaging studies have all been personally reviewed. Surface echocardiogram revealed normal LV size with an ejection fraction of 50%. Moderate global RV systolic dysfunction was noted with a pulmonary artery systolic pressure of 45 mmHg. - Physical Exam Vitals/I&O's: Vital Signs Temp Pulse Resp BP Pulse Ox 98.0 F 99 20 H 114/73 95 03/01/20 08:52 03/01/20 12:00 03/01/20 08:52 03/01/20 08:52 03/01/20 12:46 Oxygen Flow Rate (L/min) 2 Oxygen Delivery Method Nasal Cannula Weight: 124 lb 12.506 oz Body Mass Index (BMI) 19.6 Intake and Output for Last 24 Hours 02/28/20 02/29/20 03/01/20 23:59 23:59 23:59 Intake Total 3838.35 / 3838.35 1320 / 1320 240 / 240 Output Total 225 / 225 Balance 3613.35 / 3613.35 1320 / 1320 240 / 240 General: Alert, No apparent distress HEENT: Atraumatic, Normocephalic Oral: Moist Mucosa, No Gingival or Mucosal Lesions/ Ulcerations Neck: Supple, No Nodes, Trachea Midline Lungs: No rhonchi, No wheeze, No rales, Diminished Cardiovascular: Regular rate, Regular Rhythm Abdomen: Bowel Sounds Present, Soft, Non Tender Extremities: No clubbing, No cyanosis, No edema Skin: No breakdown Musculoskeletal: No Tenderness to Palpation of Joints or Extremities Lymphatic: No Cervical, Supraclavicular, or Inguinal Adenopathy Neurological: Neuro grossly intact Psych/Mental Status: Normal Affect Labs (Last 48 Hours) 02/29/20 02/29/20 02/29/20 06:54 09:49 12:53 WBC RBC Hgb Hct MCV MCH MCHC RDW Std Deviation RDW Coeff of Kaye Plt Count MPV Immature Gran % (Auto) Neut % (Auto) Lymph % (Auto) [place] % (Auto) Eos % (Auto) Baso % (Auto) Absolute Neuts (auto) Absolute Lymphs (auto) Nucleated RBC % Sodium Potassium Chloride Carbon Dioxide Anion Gap BUN Creatinine Estim Creat Clear Calc Est GFR (MDRD) Af Amer Est GFR (MDRD) Non-Af BUN/Creatinine Ratio Glucose Calcium Troponin I 0.100 H 0.101 H 0.094 H 03/01/20 03/01/20 05:32 05:32 WBC 7.2 RBC 2.88 L Hgb 9.0 L Hct 29.3 L MCV 101.7 H MCH 31.3 MCHC 30.7 L RDW Std Deviation 62.4 H RDW Coeff of Kaye 16.7 H Plt Count 222 MPV 10.5 Immature Gran % (Auto) 0.300 Neut % (Auto) 64.2 Lymph % (Auto) 20.4 [place] % (Auto) 11.9 H Eos % (Auto) 2.8 Baso % (Auto) 0.4 Absolute Neuts (auto) 4.6 Absolute Lymphs (auto) 1.47 Nucleated RBC % 0 Sodium 142 Potassium 3.9 Chloride 112 H Carbon Dioxide 24.0 Anion Gap 6 BUN 20 H Creatinine 0.96 Estim Creat Clear Calc 41.07 Est GFR (MDRD) Af Amer 72 Est GFR (MDRD) Non-Af 59 L BUN/Creatinine Ratio 20.8 H Glucose 92 Calcium 8.6 Troponin I Clinical Impression(s) from Imaging Studies Chest X-Ray 02/27/20 10:48 IMPRESSION: No significant change. No active pulmonary disease. Electronically Signed: Elliot Montoya MD at 12:18 EST Tel , Service support , Brain CT 02/27/20 11:17 IMPRESSION: 1. Chronic involutional changes of the brain. 2. No acute intracranial process. Electronically Signed: Elliot Montoya MD at 12:10 EST Tel , Service support , Chest CTA 02/27/20 12:15 IMPRESSION: 1. Saddle pulmonary embolism extending to the main pulmonary arteries bilaterally and into the peripheral branches. 2. Patchy bilateral infiltrates consistent with multifocal pneumonia. Covid 19 pneumonia cannot be excluded. Electronically Signed: Elliot Montoya MD at 13:01 EST Tel , Service support , ADDENDUM: 02/27/20 1319 IMPRESSION: 1. Saddle pulmonary embolism extending to the main pulmonary arteries bilaterally and into the peripheral branches. 2. Patchy bilateral infiltrates consistent with multifocal pneumonia. Covid 19 pneumonia cannot be excluded. N.B. : The above information has been verbally conveyed by Elliot Montoya MD to Dr. Tee MD, on 02/27/2020 13:13:00 (ET). Electronically Signed: Elliot Montoya MD at 13:01 EST Tel , Service support , Current Medications Acetaminophen (Acetaminophen 325 Mg Tablet) 650 mg PO Q6H PRN PRN PRN Reason: Pain Score 1-10/Temp > 100.7 F Last Admin: 02/29/20 19:12 Dose: 650 mg Documented by: Apixaban (Apixaban 5 Mg Tablet) 10 mg PO BID [facility] Last Admin: 03/01/20 09:02 Dose: 10 mg Documented by: Donepezil HCl (Donepezil Hcl 10 Mg Tablet) 20 mg PO QHS [facility] Last Admin: 02/29/20 20:36 Dose: 20 mg Documented by: Sodium Chloride () 250 mls @ 15 mls/hr IV .[id number] PRN PRN Reason: Saline Flush Sodium Chloride () 250 mls @ 15 mls/hr IV .[id number] PRN PRN Reason: Additional IVPB Infusion Nutritional Formula (Lactose Free) (Ensure Enlive 120 Ml Liquid) 120 ml PO 4X/DAY [facility] Last Admin: 03/01/20 13:39 Dose: Not Given Documented by: Ondansetron HCl (Ondansetron 4 Mg/2 Ml Vial) 4 mg IV Q8H PRN PRN PRN Reason: NAUSEA/VOMITING Senna/Docusate Sodium (Senna/Docusate Sodium 1 Tablet) 2 tablet PO BID PRN PRN Reason: Constipation Sodium Chloride (0.9% Saline Lock 10 Ml Syringe) 10 - 40 ml IV UD PRN PRN Reason: SALINE FLUSH Last Admin: 02/29/20 10:35 Dose: 10 ml Documented by: Zolpidem Tartrate (Zolpidem Tartrate 5 Mg Tablet) 5 mg PO QHS PRN PRN PRN Reason: INSOMNIA Last Admin: 02/29/20 20:35 Dose: 5 mg Documented by: Medical Necessity - Tobacco Use Smoking Status: Never smoker Assessment/Plan All Active Problems Saddle pulmonary embolus (Acute) RECOMMENDATIONS: 1. Continue systemic anticoagulation with Eliquis. 2. Wean supplemental oxygen to maintain saturations at or above 90%. 3. Encourage incentive spirometer use and mobilize patient as tolerated. 4. Recommend walking oximetry study prior to consideration for discharge home. IMPRESSIONS: 1. Acute hypoxemic respiratory insufficiency/syncope Most likely secondary to submassive PE noted on CTA chest. Plan to continue systemic anticoagulation with Eliquis as ordered. The patient has remained hemodynamically stable. Echocardiogram did reveal some RV dysfunction and pulmonary hypertension. Recommend continuing to wean supplemental oxygen to maintain saturations at or above 90%. Encourage incentive spirometer use and mobilize patient as tolerated. 2. Acute on chronic kidney disease Likely prerenal in etiology. Renal function has improved with supplemental IV fluid hydration. Continue to monitor urine output. No current indication for renal replacement therapy. 3. Recent COVID-19 pneumonia/dementia/advanced age Complicates care, management, recovery and prognosis. Continue home medications as indicated. This note was generated with [employer] dictation software. It may contain incorrect words, spelling, and punctuation that were not noted in checking the note before signing. Inpatient E&M: [id number] Subs Hosp L2
--- NOTE | 2020-03-02 15:05 | CASEMGMT ---
JOVAN DALTON Discharge Follow-up Phone Call: KING: Janet Strata: 3 Call Date: 03/02/2020 Discharge Date: 03/01/2020 Time of Call: 1500 Duration: 5 min Admitting Diagnosis: Saddle PE, syncope, hypotension JOVAN DALTON completed follow-up phone call after recent hospitalization. Daughter Elsa answered phone. Patient is doing well. No questions or concerns regarding discharge instructions. Prescriptions filled without any issues. Patient has HHC setup with [facility] and they have been in contact with family. Patient has follow-up appts scheduled.
== END 2020-03-01 14:52 | disposition home health service (06) | DRG 175 ==
LOC: ED 11:34 → ICU 14:46 → PCU 02-29 09:06
PROVIDERS: Hospitalist; Admitting Provider Hospitalist; Emergency Provider Emergency Medicine; PCP Family Medicine; Visit Provider Internal Medicine
DX: I26.92 Saddle embolus of pulmonary artery without acute cor pulmonale (principal); J96.01 Acute respiratory failure with hypoxia; N17.9 Acute kidney failure, unspecified; D64.9 Anemia, unspecified; F03.90 Unspecified dementia, unspecified severity, without behavioral disturbance, psychotic disturbance, mood disturbance, and anxiety; N18.30 Chronic kidney disease, stage 3 unspecified; E86.0 Dehydration; I27.20 Pulmonary hypertension, unspecified; Z23 Encounter for immunization; B94.8 Sequelae of other specified infectious and parasitic diseases; Z79.01 Long term (current) use of anticoagulants; Z82.49 Family history of ischemic heart disease and other diseases of the circulatory system; Z87.01 Personal history of pneumonia (recurrent)
CPT/HCPCS: 36415; 70450; 71045; 71275; 80048; 80053; 81001; 83880; 84484; 85025; 85379; 85610; 85730; 93005; 93306; 97110; 97116; 97162; 97166; 97530; 97535; 97802; 99251; 99285; G0008; J7030; J7040; Q9967; 90686; A4216; G0463; J1940

== ENCOUNTER 2020-03-15 12:10 | Emergency (ER) | payer MEDICARE, SELFPAY ==
[2020-02-27 15:29] VITALS: BMI 19.6
[2020-03-15 12:10] VITALS: BP 162/58; PULSE 45; RESP 18; TEMP 36.3; O2SAT 98; BMI 20.8
--- NOTE | 2020-03-15 12:32 | ED.DCSUM_ITS ---
History of Present Illness Chief Complaint: Dizziness Informant: Patient, Family Narrative: 79-year-old female presenting with low heart rate. And daughter states that they had Covid? and November. Patient seemed to be recovering however developed DVTs and saddle embolism. Patient was seen and evaluated in [place] [facility] and was admitted to the hospital. She is subsequently discharged home with Xarelto because she had a Eliquis allergy. Patient is on metoprolol 50 mg daily as well. Patient does state this was a new medication. Today the patient's daughter noticed that her heart rate was 45. Patient does admit to some lightheadedness with standing but not every time she stands. She is not have any chest pain and her shortness of breath has improved. No fevers, chills, body aches. - Past Medical History (1) Saddle pulmonary embolus Status: Chronic (2) Anemia Status: Chronic (3) CKD (chronic kidney disease), stage III Status: Chronic (4) Dementia Status: Chronic Past Medical History - Allergies and Home Meds Allergies/Adverse Reactions: Allergies apixaban [From Eliquis] Allergy (Verified 03/15/20 12:33) Rash Primary Care Physician: Skinny Bains MD [Primary Care Provider] - Prior records reviewed: Yes Past Medical History: - - Reviewed in problem list Surgical History: tonsillectomy Lives: With Family Smoking Status: Never smoker Alcohol: None Drugs: None - Family History Maternal Family History: Reports: Cancer - There with history of breast cancer. Paternal Family History: Reports: Hypertension Sibling Family History: Reports: Cancer - Sister with a history of lymphoma. Review of Systems General: Denies: Chills, Fever Eyes: Denies: Visual changes - bilaterally, Diplopia ENT: Denies: Rhinorrhea, Sore throat Cardiovascular: Denies: Chest pain, Palpitations Respiratory: Denies: Dyspnea, Cough, Dyspnea on exertion Gastrointestinal: Denies: Abdominal pain, Nausea, Vomiting, Diarrhea, Melena, Hematochezia Genitourinary: Denies: Dysuria, Hematuria, Frequency Musculoskeletal: Denies: Back pain, Extremity Pain Skin: Denies: Rash, Wounds Neurological: Denies: Headache, Weakness, Numbness Psych: Denies: Depression, Anxiety Physical Exam Vital Signs/Narrative: Vital Signs Temp Pulse Resp BP Pulse Ox 03/15/20 12:10 97.4 F L 45 L 18 162/58 H 98 Inital Vital Signs reviewed: Yes General: Well nourished, No Acute Distress Head: Normocephalic, Atraumatic Eyes: Perrl, EOMI ENT: Moist mucous membranes, No rhinorrhea Cardiovascular: Regular rhythm, Bradycardia Respiratory: No distress, CTA bilaterally Extremities: Nontender, No edema Skin: Normal color, No rash Neurological: Alert, Cranial nerves II-XII grossly intact Psychological: Normal affect, Normal Mood Diagnostic/Tx/Re-eval Clinical Impression(s) from Imaging Studies Chest X-Ray 03/15/20 12:35 IMPRESSION: Stable examination. Mild degree of linear scarring at the lung bases. Stable elevation of the right hemidiaphragm. Electronically Signed: Leonel York MD at 12:57 EST , Service support , Laboratory Data 03/15/20 03/15/20 13:19 13:19 WBC 6.5 RBC 3.83 L Hgb 11.9 L Hct 38.4 MCV 100.3 H MCH 31.1 MCHC 31.0 L RDW Std Deviation 54.5 H RDW Coeff of Kaye 14.7 H Plt Count 291 MPV 9.6 Immature Gran % (Auto) 0.300 Neut % (Auto) 65.4 Lymph % (Auto) 24.3 Coleman % (Auto) 7.0 Eos % (Auto) 1.9 Baso % (Auto) 1.1 H Absolute Neuts (auto) 4.2 Absolute Lymphs (auto) 1.57 Nucleated RBC % 0 Sodium 137 Potassium 4.9 Chloride 106 Carbon Dioxide 28.0 Anion Gap 3 L BUN 15 Creatinine 1.07 H Estim Creat Clear Calc 36.97 Est GFR (MDRD) Af Amer 63 Est GFR (MDRD) Non-Af 52 L BUN/Creatinine Ratio 14.0 Glucose 103 Calcium 9.5 Troponin I < 0.015 - Rhythm Strip Rhythm Strip: Sinus Rhythm Rate: 47 - EKG Initial EKG Interpretation: No Acute Injury Pattern, Sinus Bradycardia - Medical Decision Making 79-year-old female presenting with intermittent lightheadedness. Her daughter states she noticed it today. She checked her heart rate and it was 45 at home. Patient states that otherwise she is not having any other symptoms. Patient had EKG performed on arrival shows a sinus bradycardia with first-degree AV block as interpreted by myself. Chest x-ray shows no acute pulmonary process reported by myself and agreed with by radiology. Patient's hemoglobin has actually improved since previous. Renal function and electrolytes are normal. Patient's orthostatics are negative. Feel the most likely cause of the bradycardia is patient's new medications. Patient was discussed with Dr. Bains who recommended holding her medications to see if it makes her feel better. He will follow up with her outpatient basis. Patient and daughter were amenable to this plan. The daughter does know already that her mother is a fall risk and she is on a blood thinner and to be extra cautious. She states that she will help her at all times. Impression: 1. Sinus bradycardia 2. Lightheadedness ED Disposition - Plan for ED Patient: Disposition: Home or Assisted Living Instructions: ED Bradycardia Referrals: Skinny Bains MD [Primary Care Provider] -
--- NOTE | 2020-03-15 12:35 | EKG12_ITS ---
Test Reason : DIZZINESS Blood Pressure : / mmHG Vent. Rate : 047 BPM Atrial Rate : 047 BPM P-R Int : 212 ms QRS Dur : 088 ms QT Int : 484 ms P-R-T Axes : 061 -03 029 degrees QTc Int : 428 ms Sinus bradycardia with 1st degree A-V block T wave abnormality, consider anterior ischemia Abnormal ECG Confirmed by RAMON JACQUES, ÁNGEL ([id number]), scientific editor ZULAY EDDY ([id number]) on 03/20/2020 11:03:44 AM Referred By: CHANCE Confirmed By:GEOVANI NAVARRO MD
--- NOTE | 2020-03-15 12:35 | RAD_ITS ---
STUDY: X-RAY CHEST REASON FOR EXAM: Female, 79 years old. Dizziness, chest pain. TECHNIQUE: Single AP portable view of the chest. COMPARISON: Comparison is made with prior examination dated 02/27/2020. FINDINGS: EKG electrodes are seen. Stable elevation of the right hemidiaphragm. Stable mild degree of increased linear markings at the lung bases suggestive of scarring. There is no demonstrated pleural abnormality. Normal size heart. Normal mediastinum and nay. Normal visualized pulmonary arteries. There is atherosclerotic calcification of the aortic arch with tortuosity. There are diffuse degenerative changes of the visualized thoracic spine. Normal visualized ribs, clavicles, and shoulders. There is no demonstrated abnormality of the visualized soft tissue structures of the upper abdomen. RAD/Chest 1 View (Portable) IMPRESSION: Stable examination. Mild degree of linear scarring at the lung bases. Stable elevation of the right hemidiaphragm. Electronically Signed: Leonel York MD at 12:57 EST , Service support ,
[2020-03-15 13:24] VITALS: O2SAT 100
[2020-03-15 13:27] LABS: Absolute Lymphocyte Count 1.57 X10^3/uL (0.83-4.51); Absolute Neutrophil Count 4.2 X10^3/uL (2.0-7.7); Basophil# 0.07 X10^3/uL; Basophil% 1.1 % (0-1); Eosinophil# 0.12 X10^3/uL; Eosinophils% 1.9 % (0-5); Hematocrit 38.4 % (37-47); Hemoglobin 11.9 g/dL (12.0-15.0); Lymphocyte # 1.57 X10^3/ul (4.0); Lymphocyte % 24.3 % (19-41); Mean Corpuscular Hgb 31.1 pg (27.0-32.0); Mean Corpuscular Volume 100.3 fL (81-99); Mean Platelet Vol. 9.6 fl (6.2-12.0); Monocyte# 0.45 X10^3/uL; NRBC Flagged by Analyzer 0 % (0-5); Neutrophil # 4.23 X10^3/uL (2.7-7.7); Neutrophil % 65.4 % (47-70); Platelet Count 291 K/mm3 (150-450); RBC Distribution Width CV 14.7 % (11.6-14.6); RBC Distribution Width SD 54.5 fl (35.1-43.9); Red Blood Count 3.83 M/mm3 (4.2-5.4); White Blood Count 6.5 K/mm3 (4.4-11.0)
[2020-03-15 13:40] VITALS: BP 140/69; BP 151/60; BP 165/66; PULSE 43; PULSE 46; PULSE 63
[2020-03-15 13:47] LABS: Anion Gap 3 (5-15); BUN 15 mg/dL (7-18); Calcium,Total 9.5 mg/dL (8.5-10.1); Chloride 106 mmol/L (98-107); Creatinine, Serum 1.07 mg/dL (0.55-1.02); EST Glomerular Filtration Rate 52 mL/min (>60); Est Glom Filt Rate - Afr Amer 63 mL/min (>60); Estimated Creatinine Clearance 36.97 ml/min; Glucose 103 mg/dL (74-106); Potassium 4.9 mmol/L (3.5-5.1); Sodium Level 137 mmol/L (136-145)
[2020-03-15 14:43] VITALS: BP 144/63; PULSE 43; RESP 16; O2SAT 99
== END 2020-03-15 14:44 | disposition home or self-care (01) ==
PROVIDERS: Emergency Provider Student in an Organized Health Care Education/Training Program; PCP Family Medicine
DX: R00.1 Bradycardia, unspecified (principal); R42 Dizziness and giddiness; I44.0 Atrioventricular block, first degree; F03.90 Unspecified dementia, unspecified severity, without behavioral disturbance, psychotic disturbance, mood disturbance, and anxiety; N18.30 Chronic kidney disease, stage 3 unspecified; D64.9 Anemia, unspecified; Z80.3 Family history of malignant neoplasm of breast; Z82.49 Family history of ischemic heart disease and other diseases of the circulatory system; Z86.711 Personal history of pulmonary embolism
CPT/HCPCS: 71045; 80048; 84484; 85025; 93005; 99285; A4216

== ENCOUNTER → 2020-05-22 12:39 | Outpatient (CLI) | payer MEDICARE, MEDICAID, SELFPAY ==
[2020-03-20 10:21] VITALS: BMI 20.6
--- NOTE | 2020-05-22 12:42 | ECHOCS_ITS ---
Version 2 Reason For Study: Emboli Procedure This was a 2D Doppler, Color Flow transthoracic echocardiogram. The study was technically difficult. Contrast injection was performed. Exam performed in department. Left Ventricle Normal LV size. Left ventricular systolic function is normal. The estimated ejection fraction is 65 %. Stage 1 diastolic dysfunction. No regional wall motion abnormalities noted. Right Ventricle Normal RV size. Normal systolic function. Atria Normal left atrium. Normal right atrium. Bubble contrast study negative for right to left interatrial shunt. Mitral Valve Mild focal mitral valve calcification. Mild (1+) eccentric mitral valve insufficiency. Tricuspid Valve Normal tricuspid valve. Mild (1+) tricuspid valve insufficiency. Aortic Valve Trisinus/trileaflet aortic valve. Pulmonic Valve Normal pulmonic valve. Trivial pulmonic valve insufficiency. Pericardium/Pleural No pericardial effusion. Medication 22 gauge I.V. with prn adaptor inserted into right arm. Diluted definity 2ml given slow IV push to enhance endocardial definition. Performed a rapid injection of agitated mix of 9 cc saline and 1cc air to assess for atrial septal defect. MMode/2D Measurements & Calculations LVIDd: 3.6 cm IVSd: 0.94 cm Ao root diam: 3.4 cm LVIDs: 1.9 cm LVPWd: 0.98 cm LA dimension: 2.7 cm RVDd: 3.0 cm FS: 48.6 % LAV(MOD-bp): 26.8 ml LA A4 area: 11.0 cm2 RA A4 area: 10.9 cm2 LAV(MOD-bp) Indexed: 16.7 ml/m2 LAV(MOD-sp2): 32.9 ml LAV(MOD-sp4): 21.2 ml Time Measurements MV dec time: 0.32 sec Doppler Measurements & Calculations MV E max juan manuel: 74.4 cm/sec Lat Peak E' Juan Manuel: 5.4 cm/sec Med Peak E' Juan Manuel: 6.5 cm/sec MV A max juan manuel: 134.8 cm/sec E/E' lat: 13.9 E/E' med: 11.5 MV E/A: 0.55 MV V2 max: 138.0 cm/sec MV P1/2t max juan manuel: 73.8 cm/sec Ao V2 max: 108.1 cm/sec MV max P.6 mmHg MV P1/2t: 150.5 msec Ao max P.7 mmHg MV V2 mean: 62.7 cm/sec MV dec slope: 143.7 cm/sec2 MV mean P.9 mmHg MVA(P1/2t): 1.5 cm2 MV V2 VTI: 36.8 cm LV V1 max: 85.2 cm/sec PA V2 max: 77.6 cm/sec TR max juan manuel: 218.7 cm/sec LV V1 max P.9 mmHg TR max P.1 mmHg ECHO/Echo Complete W/ Contrast Interpretation Summary Normal LV size. Left ventricular systolic function is normal. The estimated ejection fraction is 65 %. Stage 1 diastolic dysfunction. Mild (1+) tricuspid valve insufficiency. Bubble contrast study negative for right to left interatrial shunt. Compared to previous the pulmonary pressures are lower. Contrast injection was performed. Ordering Physician: Yanely Andre Referring Physician: MD Herson Skinny Performed By: [place] RCS
== END ==
PROVIDERS: PCP Family Medicine; Referring Provider Nurse Practitioner Acute Care; Visit Provider Nurse Practitioner Acute Care
DX: I07.1 Rheumatic tricuspid insufficiency (principal)
CPT/HCPCS: 93306; Q9957; A4216; C8929

== ENCOUNTER 2020-05-30 10:01 | Emergency (ER) | payer MEDICARE, MEDICAID, SELFPAY ==
[2020-03-20 10:21] VITALS: BMI 20.6
[2020-05-30 10:02] VITALS: BP 116/104; PULSE 67; RESP 16; TEMP 36.6; O2SAT 96; O2SAT 97; BMI 22.0
[2020-05-30 10:06] VITALS: BP 107/58; BP 118/56; BP 89/59; PULSE 56; PULSE 63; PULSE 73
--- NOTE | 2020-05-30 10:27 | CT_ITS ---
STUDY: CT BRAIN WITHOUT CONTRAST REASON FOR EXAM: Female, 80 years old. syncope RADIATION DOSAGE (If Supplied By Facility): CTDIvol = ( 44.99 ) mGy, DLP = ( 762.36 ) mGycm TECHNIQUE: Transaxial CT imaging of the brain was performed without administration of intravenous contrast material. Individualized dose optimization techniques were used for this CT. COMPARISON: 02/27/2020 FINDINGS: Normal soft tissue structures. Normal calvarium. There is mild cerebral atrophy with widening of the extra-axial spaces and ventricular dilatation. There are areas of decreased attenuation within the white matter tracts of the supratentorial brain, consistent with microvascular disease changes. There are small punctate calcifications of the basal ganglia which are seen in the aging brain as a normal variant. Normal brainstem. Normal cerebellum. There is no intracranial hemorrhage. There are no findings of an acute ischemic infarction. Normal visualized paranasal sinuses. CT/Brain/Head without Contrast IMPRESSION: Chronic involutional changes of the brain. Electronically Signed: Andres Gray MD at 11:17 EDT Tel , Service support ,
--- NOTE | 2020-05-30 10:28 | EKG12_ITS ---
Test Reason : SOB Blood Pressure : / mmHG Vent. Rate : 056 BPM Atrial Rate : 056 BPM P-R Int : 232 ms QRS Dur : 084 ms QT Int : 432 ms P-R-T Axes : 058 -04 046 degrees QTc Int : 416 ms Sinus bradycardia with 1st degree A-V block Otherwise normal ECG Confirmed by KRISTIN JACQUES, RENUKA ([id number]), photographic editor ZULAY EDDY ([id number]) on 06/01/2020 11:15:14 AM Referred By: EDA Confirmed By:RENUKA FOSTER MD
[2020-05-30 10:49] VITALS: O2SAT 100
--- NOTE | 2020-05-30 10:50 | RAD_ITS ---
STUDY: X-RAY CHEST REASON FOR EXAM: Female, 80 years old. chest pain TECHNIQUE: Single AP portable view of the chest. COMPARISON: 03/15/2020 FINDINGS: The lungs are clear and expanded. Elevated right hemidiaphragm which is unchanged. Normal size heart. Normal mediastinum and nay. Normal visualized pulmonary arteries. Normal visualized aortic arch and descending thoracic aorta. Normal visualized thoracic spine. Normal visualized ribs, clavicles, and shoulders. There is no demonstrated abnormality of the visualized soft tissue structures of the upper abdomen. RAD/Chest 1 View (Portable) IMPRESSION: No active disease. Electronically Signed: Andres Gray MD at 11:03 EDT Tel , Service support ,
[2020-05-30 11:00] LABS: Absolute Lymphocyte Count 1.47 X10^3/uL (0.83-4.51); Absolute Neutrophil Count 2.5 X10^3/uL (2.0-7.7); Basophil# 0.03 X10^3/uL; Basophil% 0.7 % (0-1); Eosinophil# 0.09 X10^3/uL; Hematocrit 38.4 % (37-47); Hemoglobin 12.6 g/dL (12.0-15.0); Lymphocyte # 1.47 X10^3/ul (4.0); Lymphocyte % 32.5 % (19-41); Mean Corp Hgb Conc 32.8 g/dL (32-36); Mean Corpuscular Hgb 31.6 pg (27.0-32.0); Mean Corpuscular Volume 96.2 fL (81-99); Mean Platelet Vol. 9.9 fl (6.2-12.0); Monocyte# 0.41 X10^3/uL; Monocyte% 9.1 % (0-10); NRBC Flagged by Analyzer 0 % (0-5); Neutrophil # 2.49 X10^3/uL (2.7-7.7); Platelet Count 245 K/mm3 (150-450); RBC Distribution Width CV 13.9 % (11.6-14.6); Red Blood Count 3.99 M/mm3 (4.2-5.4); White Blood Count 4.5 K/mm3 (4.4-11.0)
[2020-05-30 11:17] LABS: Anion Gap 5 (5-15); BUN 24 mg/dL (7-18); BUN/Creat Ratio 21.8 RATIO (10-20); Calcium,Total 9.3 mg/dL (8.5-10.1); Chloride 105 mmol/L (98-107); EST Glomerular Filtration Rate 51 mL/min (>60); Est Glom Filt Rate - Afr Amer 61 mL/min (>60); Estimated Creatinine Clearance 35.48 ml/min; Glucose 105 mg/dL (74-106); Potassium 4.6 mmol/L (3.5-5.1); Sodium Level 139 mmol/L (136-145)
[2020-05-30 12:03] LABS: Bacteria 0 SEEN /hpf (None Seen); Mucous, Urine 0 SEEN /hpf (<or=2+); Squamous Epithelial Cells - UA 0 SEEN /hpf (5-10); White Blood Cells 0 SEEN /hpf (0-5)
[2020-05-30 12:04] LABS: Color, Urine Yellow (Yellow); Glucose, Dipstick Normal (Normal); Ketone-Dipstick Negative (Negative); Leukocyte Esterase-Dipstick 25 /ul (Negative); Nitrite-Dipstick Negative (Negative); Occult Blood-Urine 25 /ul (Negative); Protein-Dipstick 30 mg/dl (Negative); Specific Gravity, Urine 1.015 (1.002-1.030); Urine Bilirubin Dipstick Negative (Negative); Urine Clarity Clear (Clear); Urine Urobilinogen Normal (Normal); Urine pH 6.5 (5.0 - 8.0)
[2020-05-30 12:12] LABS: Red Blood Cells-Urine 0-5 SEEN /hpf (0-5)
[2020-05-30 13:21] VITALS: BP 119/72; BP 146/62; BP 150/73; PULSE 60; PULSE 62; PULSE 69; RESP 17; O2SAT 97
--- NOTE | 2020-05-30 13:34 | ED.DCSUM_ITS ---
- ER Visit Summary Date of Service: 05/30/20 Chief Complaint: Loss of consciousness History of Present Illness: The patient is a 80 F with a brief loss of consciousness. She felt hot and dizzy when standing, and she was helped down. She did not sustain any injuries. She denies any pain. This episode lasted a few minutes and then resolved spontaneously. Patient is not currently experiencing any facial droop, vision changes, weakness, or numbness. She has a history of PE and was recently started on Xarelto. She has been compliant with her treatment and has not missed any doses. She also reports a history of UTIs. Physical Examination: Afebrile and vital signs unremarkable. Heart regular. Lungs clear. Abdomen soft. Extremities nontender with no edema. Alert and oriented. NIH stroke scale is 0. Test Results: EKG shows sinus rhythm at a rate of 56 with first-degree heart block. CBC normal. BUN 24, creatinine 1.1. Esterase 25, 0-5 red cells. Troponin normal. Chest x-ray showed nothing acute, reviewed by the radiologist and myself. CT brain showed chronic changes only. Emergency Department Course and Treatment: Patient was seen immediately. Placed on a monitor. Treated with fluids as her orthostatic vital signs were positive. Work-up as above was all fairly unremarkable. She has been compliant with her anticoagulation. She is not having any shortness of breath, cough, hemoptysis, or chest pain. No signs of bleeding. Hemoglobin normal. I suspect the patient had orthostatic hypotension and a syncopal episode. She was treated with IV fluids. On reevaluation, her symptoms have resolved. She is orthostatic normal. Patient will be discharged to follow-up as an outpatient after discussion of the risks and benefits. Treatment Plan: As above Disposition: Discharge Impression: Orthostatic hypotension, syncope This note was generated with [employer] software. It may contain incorrect words, spelling, and punctuation that were not noted in review of the chart prior to signing ED Disposition - Plan for ED Patient: Referrals: Skinny Bains MD [Primary Care Provider] -
--- NOTE | 2020-05-30 13:38 | ED.DEP ---
ED Disposition - Plan for ED Patient: Instructions: ED Hypotension, Orthostatic Referrals: Skinny Bains MD [Primary Care Provider] -
[2020-05-30 13:42] VITALS: BP 119/72; PULSE 55; RESP 13; O2SAT 99
== END 2020-05-30 13:51 | disposition home or self-care (01) ==
LOC: ED 10:35
PROVIDERS: Emergency Provider Emergency Medicine; PCP Family Medicine
DX: I95.1 Orthostatic hypotension (principal); Z87.440 Personal history of urinary (tract) infections; Z79.01 Long term (current) use of anticoagulants; Z86.711 Personal history of pulmonary embolism
CPT/HCPCS: 70450; 71045; 80048; 81001; 84484; 85025; 93005; 99285; J7040; A4216

== ENCOUNTER → 2020-06-19 12:19 | Outpatient (CLI) | payer MEDICARE, SELFPAY ==
[2020-06-01 10:14] VITALS: BMI 21.4
[2020-06-19 12:47] VITALS: PULSE 109; PULSE 110; PULSE 112; PULSE 113; PULSE 114; PULSE 74; PULSE 77; O2SAT 95; O2SAT 96; O2SAT 98
--- NOTE | 2020-06-22 09:21 | PCM.PSN.6M ---
PSN 6 Minute Walk Test 6 Minute Walk Test 6 Minute Walk Test: 6 Minute Walk Test PSN:6-Minute Walk Test Start: 06/19/20 12:46 Freq: Status: Active Protocol: [id number].6MINW Document 06/19/20 12:47 DIGNAON (Rec: 06/19/20 12:49 [place]ENT[place] Desktop) 6 Minute Walk Test Date Performed 06/19/20 Time Performed 12:30 Height 5 ft 5 in Weight: 120 lb Weight in Pounds 120.[address]: Shashank Ortiz Assistive device used: Walker Pre-test Oxygen Delivery Method Room Air Pulse Ox (%) 96 Pulse Rate (60-100 beats/min) 74 Dyspnea Marga Scale (0-10) 0 Exertion Marga Scale (6-20) 6 1st minute Oxygen Delivery Method Room Air Pulse Ox (%) 96 Pulse Rate (60-100 beats/min) 114 H 2nd minute Oxygen Delivery Method Room Air Pulse Ox (%) 95 Pulse Rate (60-100 beats/min) 112 H 3rd minute Oxygen Delivery Method Room Air Pulse Ox (%) 95 Pulse Rate (60-100 beats/min) 113 H 4th minute Oxygen Delivery Method Room Air Pulse Ox (%) 96 Pulse Rate (60-100 beats/min) 110 H 5th minute Oxygen Delivery Method Room Air Pulse Ox (%) 95 Pulse Rate (60-100 beats/min) 109 H 6th minute Oxygen Delivery Method Room Air Pulse Ox (%) 96 Pulse Rate (60-100 beats/min) 112 H Dyspnea Marga Scale (0-10) 2 Exertion Marga Scale (6-20) 12 Post-test Oxygen Delivery Method Room Air Pulse Ox (%) 98 Pulse Rate (60-100 beats/min) 77 Full Laps Walked 12 Partial Lap, Number of Tiles Walked 16 Total Distance Walked (ft) 724 Interpretation Interpretation: The patient ambulated 724 feet over the course of 6 minutes beginning on room air with the use of a walker. Pretesting oxygen saturation was noted to be 96% on room air. With ambulation, the abbey oxygen saturation was 95%. There was no significant exertional oxygen desaturation. Recommendations Recommendations: There is no indication for the use of supplemental oxygen at this time.
== END ==
PROVIDERS: PCP Family Medicine; Referring Provider Internal Medicine Critical Care Medicine; Visit Provider Internal Medicine Critical Care Medicine
DX: Z86.711 Personal history of pulmonary embolism (principal)
CPT/HCPCS: 94618

== ENCOUNTER → 2020-11-24 12:31 | Outpatient (CLI) | payer MEDICARE, MEDICAID, SELFPAY ==
--- NOTE | 2020-11-24 15:22 | TELEMED_ITS ---
[facility] has confirmed receipt of a request for visit. This document confirms receipt of the order initiating the consult. To find the results of the consultation, please view the patient's reports for the scanned Telemed Consult.
== END ==
PROVIDERS: PCP Family Medicine; Visit Provider Psychiatry & Neurology Sleep Medicine
DX: R55 Syncope and collapse (principal)
CPT/HCPCS: 95819

== ENCOUNTER 2020-12-12 09:24 | Emergency (ER) | payer MEDICARE, MEDICAID, SELFPAY ==
[2020-12-12 09:25] VITALS: BP 141/70; PULSE 65; RESP 16; TEMP 36.7; O2SAT 100; BMI 24.8
--- NOTE | 2020-12-12 09:38 | EKG12_ITS ---
Test Reason : SYNCOPE Blood Pressure : / mmHG Vent. Rate : 063 BPM Atrial Rate : 063 BPM P-R Int : 228 ms QRS Dur : 076 ms QT Int : 414 ms P-R-T Axes : 061 -05 051 degrees QTc Int : 423 ms Sinus rhythm with 1st degree A-V block Otherwise normal ECG Confirmed by JENNIFER JACQUES, JANESSA ([id number]), editor book ZULAY EDDY ([id number]) on 12/13/2020 1:53:11 PM Referred By: MARY Confirmed By:JANESSA RODRIGUEZ MD
--- NOTE | 2020-12-12 09:39 | EX.ED.DYSGE1 ---
HPI History of Present Illness Chief Complaint: Syncope Detail of Chief Complaint: Near syncope Informant: patient Narrative Narrative: Patient presents to the ER from home via EMS with complaint of near syncopal episode this morning. Patient states that she has had multiple frequent near syncope episodes and recently wore a Holter monitor but she does not have the results from that. Patient states that she had just gotten up and had been standing when she started feeling lightheaded like she might pass out and started to fall but caught herself. She did not lose consciousness. Her daughter whom she lives with called EMS. Patient denies recent illness. She denies chest pain. She denies palpitations. She denies racing heart. 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 Prior similar symptoms: Yes PFSH PFSH Medical History (Updated 12/12/20 @ 12:[address] Celine Blas, ) Bronchitis COVID-19 Pneumonia Pulmonary embolism Home Medications donepezil 20 mg PO QHS 04/10/18 [History Last Taken 12/09/19] acetaminophen 650 mg PO Q6H PRN PRN tablet 12/17/19 [Rx Last Taken Unknown] metoprolol succinate 12.5 mg PO DAILY #30 tab.er.24h 03/01/20 [Rx Last Taken Unknown] rivaroxaban 20 mg PO DAILY 03/15/20 [History Last Taken Unknown] sulfamethoxazole-trimethoprim 1 tab PO BID #6 tablet 12/12/20 [Rx Last Taken Unknown] Allergy/AdvReac Type Severity Reaction Status Date / Time apixaban [From Eliquis] Allergy Rash Verified 12/12/20 09:28 Family History Other No pertinent family history Surgical History No pertinent past surgical history Social History (Updated 06/01/20 @ 10:[address] Shashank Ortiz, ) Smoking Status: Never smoker ROS ROS ED ROS Narrative Near syncope Constitutional Constitutional ED: Reports systems reviewed and no addt'l complaints, except as documented; Denies body ache(s), change in weight or chills Eyes Eyes: Denies acute decrease in peripheral vision, change in vision, double vision or loss of vision ENT ENT ED: Reports none; Denies ear pain, lip swelling, loss taste/smell, neck pain, otalgia or sore throat Cardiovascular Cardiovascular: Reports none; Denies abdominal pain, chest pain with activity, leg edema, lightheadedness, palpitations, rapid heart rate or syncope Respiratory/Chest Respiratory/Chest: Reports none; Denies change in mental status, dry cough, dyspnea, hemoptysis, shortness of breath at rest or shortness of breath with exertion Gastrointestinal Gastrointestinal: Reports none; Denies abdominal pain, change in stool character, diarrhea, hematemesis, hematochezia, melena, rectal bleeding or vomiting Genitourinary Genitourinary ED: Reports none; Denies abdominal discomfort, anuria, dysuria, genital pain or polyuria Musculoskeletal Musculoskeletal: Reports none; Denies arthralgias, back pain, difficulty walking, extremity pain, muscle weakness or myalgias Integumentary Reports none; Denies abscess or rash Neurologic Neurologic: Reports none; Denies abnormal gait, confusion, focal weakness, frequent falls, headache(s), loss of vision, numbness, paresthesias, radicular pain, vertigo or weakness Psychiatric Psychiatric: Reports systems reviewed and no addt'l complaints, except as documented and none; Denies behavioral changes, confusion, difficulty concentrating, hallucinations, suicidal ideation, tactile hallucinations or visual hallucinations Endocrine Endocrinology: Denies none, cold intolerance, excessive sweating, fatigue or heat intolerance Hematologic/Lymphatic Hematologic/Lymphatic: Reports none; Denies anemia, easy bleeding or easy bruising Allergic/Immunologic Allergic/Immunologic ED: Denies as per HPI, none, lip swelling, mouth swelling, throat swelling, tongue swelling or hives EXAM Physical Exam Const Vital Signs: 12/12/20 09:25 12/12/20 09:32 12/12/20 10:31 Temperature 98.0 F Temperature Source Oral Pulse Rate 65 Pulse Rate [Lying] 64 Pulse Rate [Sitting] 59 L Pulse Rate [Standing] 74 Respiratory Rate 16 Respiratory Effort Normal Non-Labored Blood Pressure 141/70 H Blood Pressure [Lying] 146/72 H Blood Pressure [Sitting] 162/74 H Blood Pressure [Standing] 142/74 H Blood Pressure Mean 93 Blood Pressure Mean [Lying] 96 Blood Pressure Mean [Sitting] 103 Blood Pressure Mean [Standing] 96 Pulse Ox 100 Oxygen Delivery Method Room Air 12/12/20 11:21 Temperature Temperature Source Pulse Rate 60 Pulse Rate [Lying] Pulse Rate [Sitting] Pulse Rate [Standing] Respiratory Rate 13 Respiratory Effort Blood Pressure 151/68 H Blood Pressure [Lying] Blood Pressure [Sitting] Blood Pressure [Standing] Blood Pressure Mean 95 Blood Pressure Mean [Lying] Blood Pressure Mean [Sitting] Blood Pressure Mean [Standing] Pulse Ox 97 Oxygen Delivery Method Room Air Positive well nourished and well developed General Appearance ED: well developed and NAD HEENT Reports TM's clear and moist mucous membranes normocephalic and atraumatic; Negative for trauma or tenderness Tympanic Membrane ED: Yes TM's clear Eyes PERRL and EOMs intact bilaterally General Eye ED: Negative for pale conjunctiva or scleral icterus Neck no lymphadenopathy, supple and no JVD General: Negative for tenderness Chest Wall inspection of chest normal and palpation of chest normal Chest: Negative for tenderness Resp normal respiratory effort and clear to auscultation bilaterally Effort and Inspection: Negative for respiratory distress or pain with movement Auscultation: Negative for rhonchi, wheezes or diminished lung sounds Cardio regular rate, regular rhythm, S1 normal heart sound, S2 normal heart sound and no murmurs Peripheral Pulses: pulses 2+ throughout GI normal to inspection, nondistended, normoactive bowel sounds, soft to palpation, non-tender, non-distended and no masses Back/Spine no CVA tenderness and no thoracic nor lumbar tenderness Extremity normal to inspection General Extremety ED: Negative for edema General Extremity: Negative for edema Neuro oriented x3, CN's II-XII intact bilaterally, no sensory deficits noted and gait normal Sensorium / Orientation: awake, alert, oriented to person, oriented to place and oriented to time Motor Exam: strength 5/5 throughout and strength abnormal Psych mental status grossly normal Skin no rashes or lesions noted and no wounds MDM MDM MDM Narrative Medical decision making narrative: Patient's work-up unremarkable in the emergency department. She was placed on a surveillance system monitor on arrival. Orthostatic vital signs were negative. At this point the etiology of her symptoms unclear although this has been ongoing for over a year and she is currently seeing neurology. Recently had Holter monitor or event monitor its unclear which and those results have not returned yet. It was noted that she had recent EEG that was essentially normal. I do not feel admission is indicated at this point. She did receive Rocephin 1 g IV for suspected UTI and urine culture was sent. Her urologist had ordered outpatient imaging of CT abdomen pelvis with and without IV contrast which was performed in the department and showed some mild fullness of the right renal pelvis and a distended gallbladder otherwise nothing acute. Patient advised to keep her appointments with urology as well as neurology. Lab Data Attestation: I reviewed the patient's lab results. Labs: Laboratory Results - last 24 hr 12/12/20 12/12/20 12/12/20 10:15 10:15 10:35 WBC 4.8 RBC 3.63 L Hgb 11.8 L Hct 36.7 L MCV 101.1 H MCH 32.5 H MCHC 32.2 RDW Std Deviation 50.0 H RDW Coeff of Kaye 13.4 Plt Count 259 MPV 9.6 Immature Gran % (Auto) 0.200 Neut % (Auto) 53.0 Lymph % (Auto) 34.8 [place] % (Auto) 9.1 Eos % (Auto) 1.9 Baso % (Auto) 1.0 Absolute Neuts (auto) 2.6 Absolute Lymphs (auto) 1.68 Nucleated RBC % 0 Sodium 141 Potassium 4.6 Chloride 107 Carbon Dioxide 27.0 Anion Gap 7 BUN 24 H Creatinine 1.24 H Estim Creat Clear Calc 31.48 Est GFR (MDRD) Af Amer 53 L Est GFR (MDRD) Non-Af 44 L BUN/Creatinine Ratio 19.4 Glucose 94 Calcium 9.2 Troponin I High Sens 6 Urine Color Yellow Urine Clarity Sl. Cloudy Urine pH 6.5 Ur Specific [place] 1.015 Urine Protein Negative Urine Glucose (UA) Normal Urine Ketones Negative Urine Occult Blood 150 H Urine Nitrite Negative Urine Bilirubin Negative Urine Urobilinogen Normal Ur Leukocyte Esterase 500 H Urine RBC 10-25 SEEN Urine WBC 25-50 SEEN Ur Squamous Epith Cells 0-5 SEEN Urine Bacteria 1+ Urine Mucus 0 SEEN Radiography Chest X-Ray - ED: 1 View Diagnostic Testing: Clinical Impression(s) from Imaging Studies Chest X-Ray 12/12/20 10:20 IMPRESSION: Stable elevation of the right hemidiaphragm. The lungs are clear. Electronically Signed: Leonel York MD at 10:50 EDT , Service support , Abdomen/Pelvis CT 12/12/20 11:07 IMPRESSION: Distended gallbladder. Sigmoid diverticulosis. Fullness of the right renal pelvis. Electronically Signed: Leonel York MD at 11:57 EDT , Service support , 1 view chest x-ray obtained interpreted by myself as elevated right hemidiaphragm otherwise nothing acute. Radiology was in agreement. EKG Initial EKG: Attestation: I personally reviewed and interpreted this EKG as follows: Comments: Sinus rhythm with a first-degree AV block with a ventricular rate of 63 bpm with no acute ST segment changes Discharge Plan Triage Chief Complaint: Syncope ED Provider: Celine Blas Dx/Rx/DC Orders Clinical Impression: Near syncope, Acute UTI Instructions: ED Fainting, Uncertain Cause, ED Near-Fainting, Uncertain Cause, ED CYSTITIS Female Adult Prescriptions: New sulfamethoxazole-trimethoprim [sulfamethoxazole-trimethoprim] 1 TABLET tablet 1 tab PO BID Qty: 6 RF: 0 No Action donepezil 10 MG tablet 20 mg PO QHS RF: 0 acetaminophen 325 MG tablet 650 mg PO Q6H PRN PRN (Reason: Pain Score 1-10/Temp > 100.7 F) RF: 0 metoprolol succinate 25 MG tablet extended release 24 hr 12.5 mg PO DAILY Qty: 30 RF: 0 rivaroxaban 20 MG tablet 20 mg PO DAILY RF: 0 Primary Care Provider: Skinny Bains Referrals: Skinny Bains MD [Primary Care Provider] - 3-5 Days Disposition Disposition: Home, Self Care
[2020-12-12] MEDS: 0.9% Normal Saline 1,000 ML 150 ML IV (09:40)
--- NOTE | 2020-12-12 10:20 | RAD_ITS ---
STUDY: X-RAY CHEST REASON FOR EXAM: Female, 80 years old. Near syncope TECHNIQUE: Single AP portable view of the chest. COMPARISON: Comparison is made with prior examination dated 05/30/2020. FINDINGS: EKG electrodes are seen. There is elevation of the right hemidiaphragm. No acute abnormality is seen. There is no demonstrated pleural abnormality. Normal size heart. Normal mediastinum and nay. Normal visualized pulmonary arteries. There is atherosclerotic tortuosity of the aortic arch and descending thoracic aorta. There are degenerative changes of the visualized thoracic spine. Normal visualized ribs, clavicles, and shoulders. There is no demonstrated abnormality of the visualized soft tissue structures of the upper abdomen. RAD/Chest 1 View (Portable) IMPRESSION: Stable elevation of the right hemidiaphragm. The lungs are clear. Electronically Signed: Leonel York MD at 10:50 EDT , Service support ,
[2020-12-12 10:31] VITALS: BP 142/74; BP 146/72; BP 162/74; PULSE 59; PULSE 64; PULSE 74
[2020-12-12 10:33] LABS: Absolute Lymphocyte Count 1.68 X10^3/uL (0.83-4.51); Absolute Neutrophil Count 2.6 X10^3/uL (2.0-7.7); Basophil# 0.05 X10^3/uL; Eosinophil# 0.09 X10^3/uL; Eosinophils% 1.9 % (0-5); Hematocrit 36.7 % (37-47); Hemoglobin 11.8 g/dL (12.0-15.0); Lymphocyte # 1.68 X10^3/ul (0.83-4.51); Lymphocyte % 34.8 % (19-41); Mean Corp Hgb Conc 32.2 g/dL (32-36); Mean Corpuscular Hgb 32.5 pg (27.0-32.0); Mean Corpuscular Volume 101.1 fL (81-99); Mean Platelet Vol. 9.6 fl (6.2-12.0); Monocyte# 0.44 X10^3/uL; Monocyte% 9.1 % (0-10); NRBC Flagged by Analyzer 0 % (0-5); Neutrophil # 2.56 X10^3/uL (2.7-7.7); Platelet Count 259 K/mm3 (150-450); RBC Distribution Width CV 13.4 % (11.6-14.6); Red Blood Count 3.63 M/mm3 (4.2-5.4); White Blood Count 4.8 K/mm3 (4.4-11.0)
[2020-12-12 10:46] LABS: Mucous, Urine 0 SEEN /hpf (<or=2+)
[2020-12-12 10:49] LABS: Anion Gap 7 (5-15); BUN 24 mg/dL (7-18); BUN/Creat Ratio 19.4 RATIO (10-20); Calcium,Total 9.2 mg/dL (8.5-10.1); Chloride 107 mmol/L (98-107); Creatinine, Serum 1.24 mg/dL (0.55-1.02); EST Glomerular Filtration Rate 44 mL/min (>60); Est Glom Filt Rate - Afr Amer 53 mL/min (>60); Estimated Creatinine Clearance 31.48 ml/min; Glucose 94 mg/dL (74-106); Potassium 4.6 mmol/L (3.5-5.1); Sodium Level 141 mmol/L (136-145); Troponin-I HS 6 pg/mL (3.0-54.0)
[2020-12-12 10:49] LABS: Color, Urine Yellow (Yellow); Glucose, Dipstick Normal (Normal); Ketone-Dipstick Negative (Negative); Leukocyte Esterase-Dipstick 500 /ul (Negative); Nitrite-Dipstick Negative (Negative); Occult Blood-Urine 150 /ul (Negative); Protein-Dipstick Negative (Negative); Specific Gravity, Urine 1.015 (1.002-1.030); Urine Bilirubin Dipstick Negative (Negative); Urine Clarity Sl. Cloudy (Clear); Urine Urobilinogen Normal (Normal); Urine pH 6.5 (5.0 - 8.0)
[2020-12-12 10:56] LABS: Bacteria 1+ /hpf (None Seen); Red Blood Cells-Urine 10-25 SEEN /hpf (0-5); Squamous Epithelial Cells - UA 0-5 SEEN /hpf (5-10); White Blood Cells 25-50 SEEN /hpf (0-5)
--- NOTE | 2020-12-12 11:07 | CT_ITS ---
STUDY: CT ABDOMEN AND PELVIS WITH AND WITHOUT CONTRAST REASON FOR EXAM: Female, 80 years old. Hematuria, near syncope RADIATION DOSAGE (If Supplied By Facility): CTDIvol = ( 16.64 ) mGy, DLP = ( 1456.96 ) mGycm TECHNIQUE: Transaxial images were obtained from the dome of the diaphragm to the symphysis pubis without oral contrast. IV 75mL Isovue-370 was administered. Sagittal and coronal images were reconstructed. Individualized dose optimization techniques were used for this CT. COMPARISON: None. FINDINGS: Minimal degree of increased markings at the right lung base. There is a 5.4 mm nodule in the right lower lobe. The visualized portions of the heart are within normal limits. There is a 6.9 mm septated cyst in the anterior aspect of the right lobe of the liver. The gallbladder is distended. Normal spleen. Normal pancreas. Normal bilateral adrenal glands. Minimal fullness of the right renal pelvis. Normal left kidney. There is a small hiatal hernia. Normal small intestine. There are multiple colonic diverticula consistent with diverticulosis. The appendix is visualized and appears normal. There is diffuse atherosclerotic calcification of the abdominal aorta and its major visceral branches, without a demonstrated aneurysm. Normal inferior vena cava. Normal retroperitoneum. Normal urinary bladder. A pessary device is seen in the region of the uterine cervix. There is a small umbilical hernia containing fat. There are diffuse degenerative changes of the visualized lumbar spine. Dextroscoliosis. Minimal anterior listhesis of L4 on L5. CT/CT Abd/Pelvis W/WO Contrast IMPRESSION: Distended gallbladder. Sigmoid diverticulosis. Fullness of the right renal pelvis. Electronically Signed: Leonel York MD at 11:57 EDT , Service support ,
[2020-12-12 11:21] VITALS: BP 151/68; PULSE 60; RESP 13; O2SAT 97
[2020-12-12] MEDS: Ceftriaxone 1 GM/50 ML BAG IV (11:43)
== END 2020-12-12 12:35 | disposition home or self-care (01) ==
PROVIDERS: Emergency Provider Emergency Medicine; PCP Family Medicine
DX: R55 Syncope and collapse (principal); N39.0 Urinary tract infection, site not specified; Z86.16 Personal history of COVID-19; Z86.711 Personal history of pulmonary embolism; Z79.899 Other long term (current) drug therapy; Z79.01 Long term (current) use of anticoagulants
CPT/HCPCS: 71045; 74178; 80048; 81001; 84484; 85025; 87086; 87088; 93005; 96365; 99285; J7030; Q9967; A4216

== ENCOUNTER 2022-02-01 13:18 | Emergency (ER) | payer MEDICARE, MEDICAID, SELFPAY ==
[2022-02-01 13:20] VITALS: BP 147/70; PULSE 85; RESP 18; TEMP 36.5; O2SAT 97; BMI 25.9
--- NOTE | 2022-02-01 15:43 | EDS_ITS ---
HPI HPI - Female History of Present Illness Chief Complaint: Vag Bleeding Informant: patient and family Narrative Narrative: Patient here with daughter for evaluation for blood noted in the commode. History of dementia. Patient states she went to the bathroom there is blood dripping. She states she is not straining. Denies any clots. She does take Xarelto for history of DVT. She is baseline. Denies abdominal pain. She sees [facility] gynecology every 3 months for cleaning of her pessary ring. Denies lightheaded symptoms. Prior similar symptoms: No PFSH PFSH Medical History (Updated 02/01/22 @ 19:[address] Maged Saxena DO) Bronchitis COVID-19 Pneumonia Pulmonary embolism Home Medications donepezil 10 mg tablet 20 mg PO QHS dementia 04/10/18 [History Last Taken 12/09/19] acetaminophen 325 mg tablet 650 mg PO Q6H PRN PRN Pain Score 1-10/Temp > 100.7 F 12/17/19 [Rx Last Taken Unknown] metoprolol succinate 25 mg tablet,extended release 24 hr 12.5 mg PO DAILY ##30 03/01/20 [Rx Last Taken Unknown] rivaroxaban 20 mg tablet 20 mg PO DAILY 03/15/20 [History Last Taken Unknown] sulfamethoxazole 800 mg-trimethoprim 160 mg tablet 1 tab PO BID #6 TABLETS 12/12/20 [Rx Last Taken Unknown] Allergy/AdvReac Type Severity Reaction Status Date / Time apixaban [From Eliquis] Allergy Rash Verified 02/01/22 13:19 Family History Other No pertinent family history Surgical History No pertinent past surgical history Social History Smoking Status: Never smoker ROS ROS ED Constitutional Constitutional ED: Denies chills, fever(s) or sweats Eyes Eyes: Denies change in vision ENT ENT ED: Denies dysphagia or sore throat Cardiovascular Cardiovascular: Denies chest pain, leg edema, palpitations or racing heartbeat Respiratory/Chest Respiratory/Chest: Denies cough, dyspnea or dyspnea on exertion Gastrointestinal Gastrointestinal: Denies abdominal pain, diarrhea, nausea or vomiting Genitourinary Genitourinary ED: Reports other Details: Possible vaginal bleed ; Denies dysuria, hematuria or urinary frequency Musculoskeletal Musculoskeletal: Denies back pain, extremity pain or neck pain Integumentary Denies rash or wounds Neurologic Neurologic: Denies headache(s), paresthesias or weakness EXAM Physical Exam Const Vital Signs: 02/01/22 13:20 02/01/22 18:13 Temperature 97.7 F L Temperature Source Temporal Pulse Rate 85 87 Respiratory Rate 18 16 Blood Pressure 147/70 H 164/78 H Blood Pressure Mean 95 106 Pulse Ox 97 99 Oxygen Delivery Method Room Air Positive well nourished and well developed General Appearance ED: well developed and NAD HEENT Reports moist mucous membranes normocephalic and atraumatic Eyes PERRL, EOMs intact bilaterally and conjunctivae normal General Eye ED: Yes normal appearance of both eyes Neck no lymphadenopathy and supple General: Negative for tenderness Chest Wall Chest: Negative for tenderness Resp normal respiratory effort and normal air movement Effort and Inspection: symmetric chest movement; Negative for respiratory distress Cardio regular rate, regular rhythm and no murmurs Peripheral Pulses: pulses 2+ throughout GI normal to inspection, nondistended, normoactive bowel sounds and non-tender GI Narrative: Rectal with nonthrombosed hemorrhoids, no gross blood. Digital rectal with no stools. Palpation: Negative for guarding or rebound tenderness present Narrative: External exam no bleeding. Speculum noted pink fluid in the vault. No clots no gross bleeding. Back/Spine no CVA tenderness and no thoracic nor lumbar tenderness Extremity normal to inspection General Extremety ED: Negative for edema or tenderness General Extremity: Negative for edema Neuro no sensory deficits noted Neuro Narrative: Alert to person and place, at baseline per daughter. Sensorium / Orientation: awake and alert Skin no rashes or lesions noted and no wounds MDM MDM MDM Narrative Medical decision making narrative: Patient vital stable nontoxic baseline dementia. Unclear area of bleeding. Pelvic exam with nursing noted pink-tinged fluid in the vault consistent with what was seen. Her hemoglobin 13.6. Pelvic ultrasound obtained normal appearance of the uterus. Sent for Hemoccult, however likely contaminant from the pooling of liquid from her vaginal vault. There is no gross blood on the glove. Discussed this with family. They will monitor symptoms. She follows [facility] on a quarterly basis with her pessary. They will call for earlier follow- up for further work-up. All questions were answered. Lab Data Labs: Laboratory Results - last 24 hr 02/01/22 02/01/22 02/01/22 17:12 17:12 17:12 WBC 5.2 RBC 3.97 L Hgb 13.6 Hct 41.2 MCV 103.8 H MCH 34.3 H MCHC 33.0 RDW Std Deviation 49.1 H RDW Coeff of Kaye 13.0 Plt Count 232 MPV 9.9 Immature Gran % (Auto) 0.200 Neut % (Auto) 53.7 Lymph % (Auto) 34.2 [place] % (Auto) 9.0 Eos % (Auto) 1.9 Baso % (Auto) 1.0 Absolute Neuts (auto) 2.8 Absolute Lymphs (auto) 1.79 Nucleated RBC % 0 PT 14.7 INR 1.2 APTT 22.4 L Sodium 139 Potassium 4.5 Chloride 110 H Carbon Dioxide 24.0 Anion Gap 5 BUN 23 H Creatinine 1.18 H Estim Creat Clear Calc 32.51 Est GFR (MDRD) Af Amer 56 L Est GFR (MDRD) Non-Af 46 L BUN/Creatinine Ratio 19.5 Glucose 96 Calcium 9.7 Radiography Diagnostic Testing: Clinical Impression(s) from Imaging Studies Pelvis Ultrasound 02/01/22 17:10 IMPRESSION: Unremarkable appearance of the uterus. Ovaries not visualized due to bowel gas. Electronically Signed: Yuriy Spear MD at 18:26 EST Reading Location ID and State: [address] [place] [address] Tel , Service support , Discharge Plan Triage Chief Complaint: Vag Bleeding Other Complaint: Complaint ED Provider: Maged Saxena Dx/Rx/DC Orders Clinical Impression: Abnormal vaginal bleeding, Dementia Instructions: Understanding Uterine Bleeding Prescriptions: No Action donepezil 10 MG tablet 20 mg PO QHS acetaminophen 325 MG tablet 650 mg PO Q6H PRN PRN (Reason: Pain Score 1-10/Temp > 100.7 F) 0RF metoprolol succinate 25 MG tablet extended release 24 hr 12.5 mg PO DAILY Qty: 30 0RF rivaroxaban 20 MG tablet 20 mg PO DAILY sulfamethoxazole-trimethoprim [sulfamethoxazole-trimethoprim] 1 TABLET tablet 1 tab PO BID Qty: 6 0RF Primary Care Provider: Skinny Bains Referrals: Skinny Bains MD [Primary Care Provider] - Activity Restrictions/Additional Instructions: Clinical exam had liquid serosanguineous fluid blood-tinged in the vaginal vault. Hemoglobin is 13.6. Ultrasound of your uterus did not note any masses. Follow-up with your information services consultant for outpatient evaluation. Disposition Disposition: Home, Self Care Discharge Date/Time: 02/01/22 19:25
--- NOTE | 2022-02-01 17:03 | ED.RN ---
multiple iv attemts with no success dr steinberg aware to call lab fo [facility] for bloodwork
--- NOTE | 2022-02-01 17:10 | US_ITS ---
INDICATION: Vaginal bleeding EXAMINATION: Ultrasound US Pelvis Non-OB Complete TECHNIQUE: Transabdominal pelvic ultrasound was performed. Grayscale, spectral waveform, and color flow Doppler evaluation of the adnexa. COMPARISON: None. FINDINGS: UTERUS: Anteverted. The uterus measures 5.6 x 4.3 x 2.1 cm. There is no uterine mass. The endometrial stripe measures 3 mm in AP diameter which is within normal limits. RIGHT OVARY: Not visualized due to bowel gas. LEFT OVARY: Not visualized due to bowel gas. FREE FLUID: None. US/Pelvic (Non ) IMPRESSION: Unremarkable appearance of the uterus. Ovaries not visualized due to bowel gas. Electronically Signed: Yuriy Spear MD at 18:26 EST ,
[2022-02-01 17:20] LABS: Absolute Lymphocyte Count 1.79 X10^3/uL (0.83-4.51); Absolute Neutrophil Count 2.8 X10^3/uL (2.0-7.7); Basophil# 0.05 X10^3/uL; Eosinophils% 1.9 % (0-5); Hematocrit 41.2 % (37-47); Hemoglobin 13.6 g/dL (12.0-15.0); Lymphocyte # 1.79 X10^3/ul (0.83-4.51); Lymphocyte % 34.2 % (19-41); Mean Corpuscular Hgb 34.3 pg (27.0-32.0); Mean Corpuscular Volume 103.8 fL (81-99); Mean Platelet Vol. 9.9 fl (6.2-12.0); Monocyte# 0.47 X10^3/uL; NRBC Flagged by Analyzer 0 % (0-5); Neutrophil # 2.82 X10^3/uL (2.7-7.7); Neutrophil % 53.7 % (47-70); Platelet Count 232 K/mm3 (150-450); RBC Distribution Width SD 49.1 fl (35.1-43.9); Red Blood Count 3.97 M/mm3 (4.2-5.4); White Blood Count 5.2 K/mm3 (4.4-11.0)
[2022-02-01 17:30] LABS: Partial Thromboplast Time 22.4 Seconds (24.1-36.2)
[2022-02-01 17:33] LABS: Anion Gap 5 (5-15); BUN 23 mg/dL (7-18); BUN/Creat Ratio 19.5 RATIO (10-20); Calcium,Total 9.7 mg/dL (8.5-10.1); Chloride 110 mmol/L (98-107); Creatinine, Serum 1.18 mg/dL (0.55-1.02); EST Glomerular Filtration Rate 46 mL/min (>60); Est Glom Filt Rate - Afr Amer 56 mL/min (>60); Estimated Creatinine Clearance 32.51 ml/min; Glucose 96 mg/dL (74-106); Potassium 4.5 mmol/L (3.5-5.1); Sodium Level 139 mmol/L (136-145)
[2022-02-01 17:44] LABS: International Normalized Ratio 1.2; Prothrombin Time (Protime)PT. 14.7 SECONDS (11.7-14.9)
[2022-02-01 18:13] VITALS: BP 164/78; PULSE 87; RESP 16; O2SAT 99
== END 2022-02-01 19:25 | disposition home or self-care (01) ==
PROVIDERS: Emergency Provider Emergency Medicine; PCP Family Medicine; Visit Provider Emergency Medicine
DX: N93.9 Abnormal uterine and vaginal bleeding, unspecified (principal); F03.90 Unspecified dementia, unspecified severity, without behavioral disturbance, psychotic disturbance, mood disturbance, and anxiety; Z79.01 Long term (current) use of anticoagulants; Z79.899 Other long term (current) drug therapy; Z86.711 Personal history of pulmonary embolism; Z87.01 Personal history of pneumonia (recurrent); Z86.16 Personal history of COVID-19
CPT/HCPCS: 36415; 76856; 80048; 82274; 85025; 85610; 85730; 99282

== ENCOUNTER 2023-02-11 18:09 | Emergency (ER) | payer MEDICARE, MEDICAID, SELFPAY ==
[2023-02-11 18:11] VITALS: BP 137/64; PULSE 105; RESP 18; TEMP 36.6; O2SAT 94
== END 2023-02-11 20:11 | disposition left against medical advice (07) ==
LOC: ED 20:15
PROVIDERS: PCP Family Medicine
DX: R41.0 Disorientation, unspecified (principal)

== ENCOUNTER 2023-02-12 11:10 | Emergency (ER) | payer MEDICARE, MEDICAID, SELFPAY ==
[2023-02-12 11:11] VITALS: BP 120/72; PULSE 98; RESP 18; TEMP 35.2; O2SAT 97
[2023-02-12 13:20] VITALS: BMI 24.0
--- NOTE | 2023-02-12 13:21 | CT_ITS ---
EXAM: CT HEAD WITHOUT INTRAVENOUS CONTRAST CLINICAL INDICATION: confusion TECHNIQUE: Multiple axial images were obtained of the head without intravenous contrast. This CT exam was performed using one or more of the following dose reduction techniques: automated exposure control, adjustment of the mA and/or kV according to patient size, and/or use of iterative reconstruction technique. COMPARISON: CT Head dated 05/30/2020 FINDINGS: BRAIN AND EXTRA-AXIAL SPACES: No hemorrhage or mass effect. No acute ischemia. Areas of diminished white matter density noted within both cerebral hemispheres suggestive of chronic microvascular change. Prominence of the cortical sulci and ventricles related to volume loss change. BONES/JOINTS: No suspicious lytic or blastic abnormality. SINUSES: No acute sinusitis. MASTOID AIR CELLS: Normal. Clear. CT/Brain/Head without Contrast IMPRESSION: 1. No acute intracranial abnormality. 2. Stable senescent changes. Electronically Signed: Ronal Reed MD at 14:16 EST ,
--- NOTE | 2023-02-12 13:22 | EX.ED.DYSGE1 ---
HPI History of Present Illness Chief Complaint: General Illness Informant: patient and family Narrative Narrative: Patient presents with daughter for evaluation of increased confusion. She does have baseline dementia. Daughter states she has been having to help her with more activities and yesterday at daycare she requested help to get to the vehicle. She has never done this before. Patient does report some intermittent headaches. She did take Tylenol at 8:00 this morning. Daughter states that they did finish an antibiotic about 2 weeks ago for UTI and her pessary was changed at that time. [facility] Medical History Bronchitis COVID-19 Dementia Pneumonia Pulmonary embolism Home Medications donepezil 10 mg tablet 20 mg PO QHS dementia 04/10/18 [History Last Taken 12/09/19] acetaminophen 325 mg tablet 650 mg (2 x 325 mg) PO Q6H PRN PRN Pain Score 1-10/Temp > 100.7 F 12/17/19 [Rx Last Taken Unknown] metoprolol succinate 25 mg tablet,extended release 24 hr 12.5 mg (1/2 x 25 mg) PO DAILY ##30 03/01/20 [Rx Last Taken Unknown] rivaroxaban 20 mg tablet 20 mg PO DAILY 03/15/20 [History Last Taken Unknown] sulfamethoxazole 800 mg-trimethoprim 160 mg tablet 1 tab PO BID #6 TABLETS 12/12/20 [Rx Last Taken Unknown] cephalexin 500 mg capsule 500 mg PO Q12 #14 CAPSULES 02/12/23 [Rx Last Taken Unknown] Allergy/AdvReac Type Severity Reaction Status Date / Time apixaban [From Eliquis] Allergy Rash Verified 02/12/23 11:11 Family History Other No pertinent family history Surgical History No pertinent past surgical history Social History Smoking Status: Never smoker ROS ROS ED Constitutional Constitutional ED: Denies chills or fever(s) Eyes Eyes: Denies change in vision or discharge from eye(s) ENT ENT ED: Denies discharge from eye(s), rhinorrhea or sore throat Cardiovascular Cardiovascular: Denies chest pain or palpitations Respiratory/Chest Respiratory/Chest: Reports dyspnea; Denies cough Gastrointestinal Gastrointestinal: Reports other Details: Early satiety ; Denies abdominal pain, diarrhea, nausea or vomiting Genitourinary Genitourinary ED: Denies dysuria Musculoskeletal Musculoskeletal: Reports back pain; Denies extremity pain Integumentary Denies Abrasions or rash Neurologic Neurologic: Reports headache(s) and weakness Allergic/Immunologic Allergic/Immunologic ED: Denies lip swelling or urticaria EXAM Physical Exam Const Vital Signs: 02/12/23 11:11 02/12/23 13:22 02/12/23 14:42 Temperature 95.4 F L 99.4 F H Temperature Source Temporal Oral Pulse Rate 98 102 H Respiratory Rate 18 28 H Respiratory Pattern Normal Blood Pressure 120/72 145/76 H Blood Pressure Mean 88 99 Pulse Ox 97 95 Oxygen Delivery Method Room Air Room Air Positive well nourished and well developed General Appearance ED: well developed HEENT Reports moist mucous membranes Eyes EOMs intact bilaterally Chest Wall inspection of chest normal and palpation of chest normal Resp normal respiratory effort and clear to auscultation bilaterally Cardio regular rate and regular rhythm GI non-tender Palpation: soft Extremity normal to inspection Neuro Neuro Narrative: Patient alert and moves all 4 extremities. Has dementia at baseline. 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 IV line initiated. EKG obtained to evaluate for cardiac arrhythmia/ischemia. Chest x-ray obtained to evaluate for acute lung pathology, cardiac size, or mediastinal abnormality. Labwork obtained to evaluate for leukocytosis, anemia, and electrolyte derangement. Urinalysis obtained to evaluate for infection/hematuria. CT head obtained given patient's increased confusion and on Xarelto. History & Record Review Discussion w/independent historian: Patient and Family Additional record(s) reviewed:: Prior ED visit and Prior labs Lab Data Attestation: I reviewed the patient's lab results. Labs: Laboratory Results - last 24 hr 02/12/23 02/12/23 13:47 14:20 WBC 12.1 H RBC 4.05 L Hgb 13.4 Hct 40.8 MCV 100.7 H MCH 33.1 H MCHC 32.8 RDW Std Deviation 51.3 H RDW Coeff of Kaye 13.8 Plt Count 232 MPV 10.9 Immature Gran % (Auto) 0.700 Neut % (Auto) 80.8 H Lymph % (Auto) 8.9 L [place] % (Auto) 8.4 Eos % (Auto) 1.0 Baso % (Auto) 0.2 Absolute Neuts (auto) 9.7 H Absolute Lymphs (auto) 1.07 Nucleated RBC % 0 Sodium 138 Potassium 4.4 Chloride 108 H Carbon Dioxide 25.0 Anion Gap 5 BUN 30 H Creatinine 2.09 H Estim Creat Clear Calc 17.30 Est GFR (MDRD) Af Amer 29 L Est GFR (MDRD) Non-Af 24 L BUN/Creatinine Ratio 14.4 Glucose 108 H Calcium 10.2 H Total Bilirubin 0.50 Direct Bilirubin 0.09 AST 28 ALT 27 Alkaline Phosphatase 73 Troponin I High Sens 7 Total Protein 8.1 Albumin 3.2 Globulin 4.9 H Urine Color Yellow Urine Clarity Cloudy Urine pH 5.0 Ur Specific [place] 1.020 Urine Protein 100 H Urine Glucose (UA) Normal Urine Ketones Negative Urine Occult Blood 250 H Urine Nitrite Positive H Urine Bilirubin Negative Urine Urobilinogen Normal Ur Leukocyte Esterase 100 H Urine RBC 10-25 SEEN Urine WBC 10-25 SEEN Ur Squamous Epith Cells 0-5 SEEN Urine Bacteria 4+ Urine Mucus 0 SEEN Radiography Chest X-Ray - ED: 1 View, Read by ED Physician, Chronic Changes and No Infiltrates Diagnostic Testing: Clinical Impression(s) from Imaging Studies Brain CT 02/12/23 13:21 IMPRESSION: 1. No acute intracranial abnormality. 2. Stable senescent changes. Electronically Signed: Ronal Reed MD at 14:16 EST , Chest X-Ray 02/12/23 13:25 IMPRESSION: No acute cardiopulmonary abnormality. No interval change. Electronically Signed: Ronal Reed MD at 13:49 EST , EKG Initial EKG: Attestation: I personally reviewed and interpreted this EKG as follows: Interpretation: Sinus Rhythm (Sinus 89 with no acute ischemia.) Treatment and Re-Evaluation :: CBC was elevated white count at 12.1 with 80% neutrophils. Hemoglobin normal at 13.4. Chemistry studies reveal a BUN of 30 and a creatinine of 2.09. This is slightly increased over her baseline. She is given a liter IV fluid bolus to help support her kidney function. LFTs are unremarkable. Urinalysis reveals evidence of infection with positive nitrites, 10-25 white cells, 4+ bacteria. Portable chest x-ray per my interpretation reveals chronic changes with no focal infiltrate. Radiology interpretation is reviewed and agrees. Swab for COVID and influenza is negative. EKG is sinus rhythm with no acute ischemia. CT scan of the head reveals chronic changes. On repeat evaluation patient's temperature did increase to 99.4. She is given Tylenol along with a dose of IV Rocephin. At this time daughter does feel comfortable taking patient home. She does have history of dementia and I am concerned that hospitalization would increase her confusion. They were given strict return instructions. She will be treated with Keflex for her UTI. Discharge Plan Triage Chief Complaint: General Illness Other Complaint: Headache ED Provider: Yara Tsang Dx/Rx/DC Orders Clinical Impression: UTI (urinary tract infection), Confusion Instructions: ED Confusion, ED Cystitis Female Adult Prescriptions: New cephalexin 500 mg capsule 500 mg PO Q12 Qty: 14 0RF No Action donepezil 10 MG tablet 20 mg PO QHS acetaminophen 325 MG tablet 650 mg PO Q6H PRN PRN (Reason: Pain Score 1-10/Temp > 100.7 F) 0RF metoprolol succinate 25 MG tablet extended release 24 hr 12.5 mg PO DAILY Qty: 30 0RF rivaroxaban 20 MG tablet 20 mg PO DAILY sulfamethoxazole-trimethoprim [sulfamethoxazole-trimethoprim] 1 TABLET tablet 1 tab PO BID Qty: 6 0RF Primary Care Provider: Skinny Bains Referrals: Skinny Bains MD [Primary Care Provider] - 1-2 Weeks Disposition Disposition: Home, Self Care
--- NOTE | 2023-02-12 13:25 | RAD_ITS ---
EXAM: XR CHEST, 1 VIEW CLINICAL INDICATION: cough TECHNIQUE: Frontal view of the chest. COMPARISON: XR Chest dated 12/12/2020 FINDINGS: LUNGS AND PLEURAL SPACES: Linear atelectasis or scarring right lung base. HEART: Normal heart size. MEDIASTINUM: No mediastinal or hilar mass. BONES/JOINTS: No acute abnormality. UPPER ABDOMEN: Elevation of the right hemidiaphragm again noted. RAD/Chest 1 View (Portable) IMPRESSION: No acute cardiopulmonary abnormality. No interval change. Electronically Signed: Ronal Reed MD at 13:49 EST ,
[2023-02-12] MEDS: 0.9% Normal Saline (1000mL) 1,000 ML 150 ML IV (13:52)
[2023-02-12 13:57] LABS: Absolute Lymphocyte Count 1.07 X10^3/uL (0.83-4.51); Absolute Neutrophil Count 9.7 X10^3/uL (2.0-7.7); Basophil# 0.03 X10^3/uL; Basophil% 0.2 % (0-1); Eosinophil# 0.12 X10^3/uL; Hematocrit 40.8 % (37-47); Hemoglobin 13.4 g/dL (12.0-15.0); Lymphocyte # 1.07 X10^3/ul (0.83-4.51); Lymphocyte % 8.9 % (19-41); Mean Corp Hgb Conc 32.8 g/dL (32-36); Mean Corpuscular Hgb 33.1 pg (27.0-32.0); Mean Corpuscular Volume 100.7 fL (81-99); Mean Platelet Vol. 10.9 fl (6.2-12.0); Monocyte# 1.01 X10^3/uL; Monocyte% 8.4 % (0-10); NRBC Flagged by Analyzer 0 % (0-5); Neutrophil # 9.74 X10^3/uL (2.7-7.7); Neutrophil % 80.8 % (47-70); Platelet Count 232 K/mm3 (150-450); RBC Distribution Width CV 13.8 % (11.6-14.6); RBC Distribution Width SD 51.3 fl (35.1-43.9); Red Blood Count 4.05 M/mm3 (4.2-5.4); White Blood Count 12.1 K/mm3 (4.4-11.0)
[2023-02-12 14:26] LABS: Mucous, Urine 0 SEEN /hpf (<or=2+)
[2023-02-12 14:27] LABS: AST(SGOT) 28 U/L (15-37); Alanine Aminotransfer ALT/SGPT 27 U/L (13-56); Albumin, Serum 3.2 g/dL (3.2-5.0); Alkaline Phosphatase 73 U/L (45-117); Anion Gap 5 (5-15); BUN 30 mg/dL (7-18); BUN/Creat Ratio 14.4 RATIO (10-20); Bilirubin, Direct 0.09 mg/dL (0.00-0.30); Calcium,Total 10.2 mg/dL (8.5-10.1); Chloride 108 mmol/L (98-107); Creatinine, Serum 2.09 mg/dL (0.55-1.02); EST Glomerular Filtration Rate 24 mL/min (>60); Est Glom Filt Rate - Afr Amer 29 mL/min (>60); Globulin 4.9 g/dL (2.2-4.2); Glucose 108 mg/dL (74-106); Potassium 4.4 mmol/L (3.5-5.1); Protein, Total 8.1 g/dL (6.4-8.2); Sodium Level 138 mmol/L (136-145); Troponin-I HS 7 pg/mL (3.0-54.0)
[2023-02-12 14:27] LABS: Glucose, Dipstick Normal (Normal); Ketone-Dipstick Negative (Negative); Leukocyte Esterase-Dipstick 100 /ul (Negative); Nitrite-Dipstick Positive (Negative); Occult Blood-Urine 250 /ul (Negative); Protein-Dipstick 100 mg/dl (Negative); Urine Bilirubin Dipstick Negative (Negative); Urine Urobilinogen Normal (Normal)
[2023-02-12 14:32] LABS: Color, Urine Yellow (Yellow); Urine Clarity Cloudy (Clear)
[2023-02-12 14:34] LABS: Red Blood Cells-Urine 10-25 SEEN /hpf (0-5)
[2023-02-12 14:39] LABS: Bacteria 4+ /hpf (None Seen); Squamous Epithelial Cells - UA 0-5 SEEN /hpf (5-10); White Blood Cells 10-25 SEEN /hpf (0-5)
[2023-02-12 14:42] VITALS: BP 145/76; PULSE 102; RESP 28; TEMP 37.4; O2SAT 95
[2023-02-12] MEDS: Ceftriaxone 1 GM/50 ML BAG IV (15:16)
[2023-02-12] MEDS: 0.9% Normal Saline (1000mL) 1,000 ML 999 ML IV (15:32)
[2023-02-12] MEDS: Acetaminophen 325 MG Tablet 650 MG PO (15:32)
[2023-02-12 16:33] VITALS: BP 124/61; PULSE 82; RESP 18
== END 2023-02-12 16:33 | disposition home or self-care (01) ==
PROVIDERS: Emergency Provider Emergency Medicine; PCP Family Medicine; Referring Provider Emergency Medicine; Visit Provider Emergency Medicine
DX: N39.0 Urinary tract infection, site not specified (principal); R41.0 Disorientation, unspecified; Z86.16 Personal history of COVID-19; Z86.711 Personal history of pulmonary embolism
CPT/HCPCS: 70450; 71045; 80048; 80076; 81001; 84484; 85025; 87077; 87086; 87088; 87186; 87428; 93005; 96361; 96365; 99285; J7030; J7050

== ENCOUNTER 2023-04-14 11:02 | Emergency (ER) | payer MEDICARE, MEDICAID, SELFPAY ==
[2023-04-14 11:03] VITALS: BP 123/74; PULSE 73; RESP 16; TEMP 36.3; O2SAT 96; BMI 24.0
--- NOTE | 2023-04-14 11:33 | EKG12_ITS ---
Test Reason : SYNCOPE Blood Pressure : / mmHG Vent. Rate : 067 BPM Atrial Rate : 067 BPM P-R Int : 200 ms QRS Dur : 076 ms QT Int : 380 ms P-R-T Axes : 064 -11 056 degrees QTc Int : 401 ms Normal sinus rhythm Normal ECG Confirmed by RAMON JACQUES, ÁNGEL ([id number]), news videotape editor NAFISA JARAMILLO ([id number]) on 04/21/2023 9:48:56 AM Referred By: Confirmed By:GEOVANI NAVARRO MD
--- NOTE | 2023-04-14 11:33 | CT_ITS ---
STUDY: CT BRAIN WITHOUT CONTRAST REASON FOR EXAM: Female, 82 years old. Follow secondary to a syncopal episode. Dementia. RADIATION DOSAGE (If Supplied By Facility): CTDIvol = ( 47.06 ) mGy, DLP = ( 837.39 ) mGycm TECHNIQUE: Transaxial CT imaging of the brain was performed without administration of intravenous contrast material. Individualized dose optimization techniques were used for this CT. COMPARISON: Comparison is made with prior study dated February 12, 2023. FINDINGS: Normal soft tissue structures. Normal calvarium. There is mild cerebral atrophy with widening of the extra-axial spaces and ventricular dilatation. There are areas of decreased attenuation within the white matter tracts of the supratentorial brain, consistent with microvascular disease changes. There are small punctate calcifications of the basal ganglia which are seen in the aging brain as a normal variant. Normal brainstem. Normal cerebellum. There is no intracranial hemorrhage. There are no findings of an acute ischemic infarction. Atherosclerotic calcific plaques of the vertebral arteries and cavernous portions of the internal carotid arteries bilaterally. Normal visualized paranasal sinuses. CT/Brain/Head without Contrast IMPRESSION: Chronic involutional changes of the brain. Electronically Signed: Leonel York MD at 12:17 [facility] [[email or web address]] ,
--- NOTE | 2023-04-14 11:35 | EDS_ITS ---
HPI <DUANE Leon - Last Filed: 04/14/23 13:51> History of Present Illness Chief Complaint: Syncope Narrative Narrative: 82-year-old female with PMH of CKD, PE, anemia, dementia presents after syncopal episode at home. Her home health aide was curling her hair in the bathroom when she started to feel lightheaded. The aide sat her down on the toilet and she Urinated and then passed out. She slumped over but did not fall off or hit her head. The aide reported she had shaking for about 2 minutes. She had no tongue bite or bowel incontinence. She remembers being brought in by EMS. She states this morning she had a mild bifrontal headache which is still there. She has had no fever, chills, chest pain or shortness of breath. She has had similar presyncopal/syncopal episodes over the last 4 years. Usually she can sit down and take deep breaths and it will pass but occasionally she passes out. She saw neurologist and they did not think they were seizures but since it kept occurring her primary care doctor put her on Keppra 500 mg once at night. PFSH <DUANE Leon - Last Filed: 04/14/23 13:51> [facility] Medical History Bronchitis COVID-19 Dementia Pneumonia Pulmonary embolism Home Medications donepezil 10 mg tablet 20 mg PO QHS dementia 04/10/18 [History Last Taken 12/09/19] acetaminophen 325 mg tablet 650 mg (2 x 325 mg) PO Q6H PRN PRN Pain Score 1- 10/Temp > 100.7 F 12/17/19 [Rx Last Taken Unknown] metoprolol succinate 25 mg tablet,extended release 24 hr 12.5 mg (1/2 x 25 mg) PO DAILY ##30 03/01/20 [Rx Last Taken Unknown] rivaroxaban 20 mg tablet 20 mg PO DAILY 03/15/20 [History Last Taken Unknown] sulfamethoxazole 800 mg-trimethoprim 160 mg tablet 1 tab PO BID #6 TABLETS 12/12/20 [Rx Last Taken Unknown] cephalexin 500 mg capsule 500 mg PO Q12 #14 CAPSULES 02/12/23 [Rx Last Taken Unknown] cephalexin 500 mg capsule 500 mg PO Q12 #14 CAPSULES 04/14/23 [Rx Last Taken Unknown] Allergy/AdvReac Type Severity Reaction Status Date / Time Sulfa (Sulfonamide Allergy Intermediate Rash Verified 04/14/23 11:07 Antibiotics) apixaban [From Eliquis] Allergy Rash Verified 04/14/23 11:02 sulfamethoxazole Allergy Rash Verified 04/14/23 11:07 ciprofloxacin [From Cipro] AdvReac Nausea/Vom/ Verified 04/14/23 11:07 Diarrhea Family History Other No pertinent family history Surgical History No pertinent past surgical history Social History Smoking Status: Never smoker ROS <DUANE Leon - Last Filed: 04/14/23 13:51> ROS ED ROS Narrative Constitutional: Negative for fever, chills, malaise. CVS: Negative for palpitations, chest pain. Respiratory: Negative for shortness of breath, cough. GI: Negative for abdominal pain, nausea, vomiting, melena, hematochezia. : Negative for dysuria. Neuro: Positive for headache. EXAM <DUANE Leon - Last Filed: 04/14/23 13:51> Physical Exam Narrative Exam Narrative: CONST: Patient sitting in no acute distress. EYES: Normal inspection. PERRL, EOMI. ENT: Normal inspection, moist mucous membranes. NECK: Normal inspection. RESP: No respiratory distress, CTAB. CVS: Regular rate and rhythm, no murmur, no gallop. ABD: Soft and nontender, no guarding or rebound, nondistended. SKIN: Color normal, no rash, warm, dry, intact. EXTREMITIES: Normal appearance, no pedal edema. 2+ radial and DP pulses. NEURO: Oriented x4. PSYCH: Normal affect. Const Vital Signs: 04/14/23 11:03 04/14/23 12:02 04/14/23 12:02 Temperature 97.4 F L Temperature Source Oral Pulse Rate 73 70 Respiratory Rate 16 16 Respiratory Effort Normal Respiratory Pattern Normal Blood Pressure 123/74 H 127/64 H Blood Pressure Mean 90 85 Pulse Ox 96 95 Oxygen Delivery Method Room Air Room Air 04/14/23 13:00 04/14/23 13:49 Temperature 97.4 F L Temperature Source Pulse Rate 66 72 Respiratory Rate 20 H 16 Respiratory Effort Respiratory Pattern Blood Pressure 151/68 H 137/74 H Blood Pressure Mean 95 95 Pulse Ox 98 95 Oxygen Delivery Method Room Air <Dr. Randy Mauricio DO - Last Filed: 04/14/23 13:01> Physical Exam Const Vital Signs: 04/14/23 11:03 04/14/23 12:02 04/14/23 12:02 Temperature 97.4 F L Temperature Source Oral Pulse Rate 73 70 Respiratory Rate 16 16 Respiratory Effort Normal Respiratory Pattern Normal Blood Pressure 123/74 H 127/64 H Blood Pressure Mean 90 85 Pulse Ox 96 95 Oxygen Delivery Method Room Air Room Air 04/14/23 13:00 04/14/23 13:49 Temperature 97.4 F L Temperature Source Pulse Rate 66 72 Respiratory Rate 20 H 16 Respiratory Effort Respiratory Pattern Blood Pressure 151/68 H 137/74 H Blood Pressure Mean 95 95 Pulse Ox 98 95 Oxygen Delivery Method Room Air MDM <DUANE Leon - Last Filed: 04/14/23 13:51> [facility] MDM Narrative Medical decision making narrative: History gathered from: Patient and daughter Differential: Syncope, seizure, electrolyte abnormality, cardiac arrhythmia Patient felt lightheaded and after sitting on the commode had a syncopal episode. Her home health aide reported shaking but based on the history it sounds more syncopal in nature. She has a chronic history of presyncope/syncopal episodes. She appears well and nontoxic and is afebrile with normal vital signs. She has no injuries. Heart is regular rate and rhythm, lungs clear, abdomen soft and nontender, neurologically intact. Labs show normal white count 5.3 and hemoglobin of 12.9. BMP is unremarkable. Creatinine of 1.51 is lower than previous. Urinalysis has 500 leukocyte esterase and 25-50 WBCs but is nitrite and bacteria negative. Although she is not sy mptomatic at her age I will treat with Keflex and send a culture. Patient is felt well while in the ED and is able to ambulate with her walker. Patient and family are comfortable with discharge home with return precautions. Lab Data Attestation: I reviewed the patient's lab results. Labs: Laboratory Results - last 24 hr 04/14/23 04/14/23 04/14/23 11:15 12:00 12:55 WBC 5.3 RBC 3.95 L Hgb 12.9 Hct 39.3 MCV 99.5 H MCH 32.7 H MCHC 32.8 RDW Std Deviation 50.8 H RDW Coeff of Kaye 14.2 Plt Count 239 MPV 10.9 Immature Gran % (Auto) 0.200 Neut % (Auto) 57.1 Lymph % (Auto) 32.1 [place] % (Auto) 8.3 Eos % (Auto) 1.5 Baso % (Auto) 0.8 Absolute Neuts (auto) 3.0 Absolute Lymphs (auto) 1.71 Nucleated RBC % 0 Sodium Cancelled 141 Potassium Cancelled 4.3 Chloride Cancelled 111 H Carbon Dioxide Cancelled 25.0 Anion Gap Cancelled 5 BUN Cancelled 22 H Creatinine Cancelled 1.51 H Estim Creat Clear Calc Cancelled 24.96 Est GFR (MDRD) Af Amer Cancelled 42 L Est GFR (MDRD) Non-Af Cancelled 35 L BUN/Creatinine Ratio Cancelled 14.6 Glucose Cancelled 117 H Calcium Cancelled 10.0 Urine Color Yellow Urine Clarity Sl. Cloudy Urine pH 6.0 Ur Specific [place] 1.015 Urine Protein Negative Urine Glucose (UA) Normal Urine Ketones Negative Urine Occult Blood 25 H Urine Nitrite Negative Urine Bilirubin Negative Urine Urobilinogen Normal Ur Leukocyte Esterase 500 H Urine RBC 0-5 SEEN Urine WBC 25-50 SEEN Ur Squamous Epith Cells 5-10 SEEN Urine Bacteria 0 SEEN Urine Mucus 0 SEEN Radiography Diagnostic Testing: Clinical Impression(s) from Imaging Studies Brain CT 04/14/23 11:33 IMPRESSION: Chronic involutional changes of the brain. Electronically Signed: Leonel York MD at 12:17 EST , Chest X-Ray 04/14/23 11:55 IMPRESSION: Stable elevation of the right hemidiaphragm. The lungs are clear. Electronically Signed: Leonel York MD at 12:18 EST , ED attending interpretation of 1-view chest x-ray shows normal heart size, no acute infiltrate, edema, or effusion. <Dr. Randy Mauricio, DO - Last Filed: 04/14/23 13:01> [facility] Lab Data Labs: Laboratory Results - last 24 hr 04/14/23 04/14/23 04/14/23 11:15 12:00 12:55 WBC 5.3 RBC 3.95 L Hgb 12.9 Hct 39.3 MCV 99.5 H MCH 32.7 H MCHC 32.8 RDW Std Deviation 50.8 H RDW Coeff of Kaye 14.2 Plt Count 239 MPV 10.9 Immature Gran % (Auto) 0.200 Neut % (Auto) 57.1 Lymph % (Auto) 32.1 [place] % (Auto) 8.3 Eos % (Auto) 1.5 Baso % (Auto) 0.8 Absolute Neuts (auto) 3.0 Absolute Lymphs (auto) 1.71 Nucleated RBC % 0 Sodium Cancelled 141 Potassium Cancelled 4.3 Chloride Cancelled 111 H Carbon Dioxide Cancelled 25.0 Anion Gap Cancelled 5 BUN Cancelled 22 H Creatinine Cancelled 1.51 H Estim Creat Clear Calc Cancelled 24.96 Est GFR (MDRD) Af Amer Cancelled 42 L Est GFR (MDRD) Non-Af Cancelled 35 L BUN/Creatinine Ratio Cancelled 14.6 Glucose Cancelled 117 H Calcium Cancelled 10.0 Urine Color Yellow Urine Clarity Sl. Cloudy Urine pH 6.0 Ur Specific [place] 1.015 Urine Protein Negative Urine Glucose (UA) Normal Urine Ketones Negative Urine Occult Blood 25 H Urine Nitrite Negative Urine Bilirubin Negative Urine Urobilinogen Normal Ur Leukocyte Esterase 500 H Urine RBC 0-5 SEEN Urine WBC 25-50 SEEN Ur Squamous Epith Cells 5-10 SEEN Urine Bacteria 0 SEEN Urine Mucus 0 SEEN Radiography Chest X-Ray - ED: 1 View, Read by ED Physician, Read by Radiologist and No Acute Disease Diagnostic Testing: Clinical Impression(s) from Imaging Studies Brain CT 04/14/23 11:33 IMPRESSION: Chronic involutional changes of the brain. Electronically Signed: Leonel York MD at 12:17 EST , Chest X-Ray 04/14/23 11:55 IMPRESSION: Stable elevation of the right hemidiaphragm. The lungs are clear. Electronically Signed: Leonel York MD at 12:18 EST , EKG Initial EKG: Attestation: I personally reviewed and interpreted this EKG as follows: Interpretation: Sinus Rhythm (67) and No Acute Injury Pattern Treatment and Re-Evaluation :: I have personally performed a face to face assessment of the patient and have reviewed the AKBAR Note. I performed a substantive portion of the visit including all aspects of the following. My vines findings include: History: Patient presents with syncopal episode that occurred today. Patient states she was getting her hair done. Patient states she felt lightheaded. Daughter states she was incoherent for approximately 3 to 4 minutes. Patient feels better at this time. Patient complains of a left frontal headache. Patient denies any nausea or vomiting. Patient denies any chest pain or shortness of breath. Patient denies any palpitations. Exam: Vital signs are stable. Patient is afebrile. Patient is in no acute distress. Oral mucosa is pink and moist. Neck is supple. Trachea is midline. There is no JVD. Heart was regular rate and rhythm. Lungs are clear and equal bilaterally. Abdomen is soft. Bowel sounds are normal. There is no tenderness. Cranial nerves II through XII are intact. There are no focal motor or sensory deficits. Medical Decision Making: Differential diagnosis include vasovagal syncope, cardiac dysrhythmia, intracranial bleeding, pneumonia, anemia, and electrolyte abnormality. EKG will be obtained to assess for cardiac dysrhythmia and cardiac ischemia. CBC will be obtained to assess for leukocytosis and anemia. Basic metabolic profile will be obtained to assess for electrolyte abnormality and renal function. Urinalysis will be obtained to assess for urinary tract infection. Chest x-ray will be obtained to assess for pneumonia and widened mediastinum. CT scan of the brain will be obtained to assess for intracranial bleeding. CT scan of the brain was obtained. There is no acute intracranial abnormality. This was interpreted by the radiologist and was also independently reviewed by myself. Portable 1 view chest x-ray was obtained. On my independent interpretation, lung douglass are clear. There is normal cardiac silhouette. Bony thorax is normal. There is no acute process noted. Radiologist also interpreted the x-ray and agrees. CBC was reviewed and was within normal limits. Basic metabolic profile was reviewed. BUN was slightly elevated at 22 and creatinine was 1.51. These are consistent with prior results. EKG was obtained. On my independent interpretation, it showed a normal sinus rhythm with a rate of 67. AR interval, QRS interval, and QTc intervals were all normal. [place] was normal. There are no acute ST or T wave changes. Discharge Plan Triage Chief Complaint: Syncope ED Midlevel Provider: Jhoana Blackburn ED Provider: Randy Mauricio Dx/Rx/DC Orders Clinical Impression: Syncope, Acute UTI Instructions: Causes of Syncope Prescriptions: New cephalexin 500 mg capsule 500 mg PO Q12 Qty: 14 0RF No Action donepezil 10 MG tablet 20 mg PO QHS acetaminophen 325 MG tablet 650 mg PO Q6H PRN PRN (Reason: Pain Score 1-10/Temp > 100.7 F) 0RF metoprolol succinate 25 MG tablet extended release 24 hr 12.5 mg PO DAILY Qty: 30 0RF rivaroxaban 20 MG tablet 20 mg PO DAILY sulfamethoxazole-trimethoprim [sulfamethoxazole-trimethoprim] 1 TABLET tablet 1 tab PO BID Qty: 6 0RF cephalexin 500 mg capsule 500 mg PO Q12 Qty: 14 0RF Primary Care Provider: Skinny Bains Referrals: Skinny Bains MD [Primary Care Provider] - Activity Restrictions/Additional Instructions: Your test today look normal. Please follow-up with your primary care doctor, return if any symptoms worsen Disposition Disposition: Home, Self Care Discharge Date/Time: 04/14/23 13:50
[2023-04-14 11:46] LABS: Absolute Lymphocyte Count 1.71 X10^3/uL (0.83-4.51); Basophil# 0.04 X10^3/uL; Basophil% 0.8 % (0-1); Eosinophil# 0.08 X10^3/uL; Eosinophils% 1.5 % (0-5); Hematocrit 39.3 % (37-47); Hemoglobin 12.9 g/dL (12.0-15.0); Lymphocyte # 1.71 X10^3/ul (0.83-4.51); Lymphocyte % 32.1 % (19-41); Mean Corp Hgb Conc 32.8 g/dL (32-36); Mean Corpuscular Hgb 32.7 pg (27.0-32.0); Mean Corpuscular Volume 99.5 fL (81-99); Mean Platelet Vol. 10.9 fl (6.2-12.0); Monocyte# 0.44 X10^3/uL; Monocyte% 8.3 % (0-10); NRBC Flagged by Analyzer 0 % (0-5); Neutrophil # 3.04 X10^3/uL (2.7-7.7); Neutrophil % 57.1 % (47-70); Platelet Count 239 K/mm3 (150-450); RBC Distribution Width CV 14.2 % (11.6-14.6); RBC Distribution Width SD 50.8 fl (35.1-43.9); Red Blood Count 3.95 M/mm3 (4.2-5.4); White Blood Count 5.3 K/mm3 (4.4-11.0)
--- NOTE | 2023-04-14 11:55 | RAD_ITS ---
STUDY: X-RAY CHEST REASON FOR EXAM: Female, 82 years old. Syncope TECHNIQUE: Single AP portable view of the chest. COMPARISON: Comparison is made with prior study dated February 12, 2023. FINDINGS: EKG electrodes are seen. Elevation of the right hemidiaphragm. There is no demonstrated pleural abnormality. Normal size heart. Normal mediastinum and nay. Normal visualized pulmonary arteries. There is atherosclerotic calcification of the aortic arch with tortuosity. There are degenerative changes of the visualized thoracic spine. Normal visualized ribs, clavicles, and shoulders. There is no demonstrated abnormality of the visualized soft tissue structures of the upper abdomen. RAD/Chest 1 View (Portable) IMPRESSION: Stable elevation of the right hemidiaphragm. The lungs are clear. Electronically Signed: Leonel York MD at 12:18 EST ,
[2023-04-14 12:02] VITALS: BP 127/64; PULSE 70; RESP 16; O2SAT 95
[2023-04-14 12:49] LABS: Anion Gap 5 (5-15); BUN 22 mg/dL (7-18); BUN/Creat Ratio 14.6 RATIO (10-20); Chloride 111 mmol/L (98-107); Creatinine, Serum 1.51 mg/dL (0.55-1.02); EST Glomerular Filtration Rate 35 mL/min (>60); Est Glom Filt Rate - Afr Amer 42 mL/min (>60); Estimated Creatinine Clearance 24.96 ml/min; Glucose 117 mg/dL (74-106); Potassium 4.3 mmol/L (3.5-5.1); Sodium Level 141 mmol/L (136-145)
[2023-04-14] MEDS: Acetaminophen 325 MG Tablet 650 MG PO (12:55)
[2023-04-14 13:00] VITALS: BP 151/68; PULSE 66; RESP 20; O2SAT 98
[2023-04-14 13:00] LABS: Bacteria 0 SEEN /hpf (None Seen); Mucous, Urine 0 SEEN /hpf (<or=2+)
[2023-04-14 13:06] LABS: Color, Urine Yellow (Yellow); Glucose, Dipstick Normal (Normal); Ketone-Dipstick Negative (Negative); Leukocyte Esterase-Dipstick 500 /ul (Negative); Nitrite-Dipstick Negative (Negative); Occult Blood-Urine 25 /ul (Negative); Protein-Dipstick Negative (Negative); Specific Gravity, Urine 1.015 (1.002-1.030); Urine Bilirubin Dipstick Negative (Negative); Urine Clarity Sl. Cloudy (Clear); Urine Urobilinogen Normal (Normal)
[2023-04-14 13:14] LABS: Red Blood Cells-Urine 0-5 SEEN /hpf (0-5); Squamous Epithelial Cells - UA 5-10 SEEN /hpf (5-10); White Blood Cells 25-50 SEEN /hpf (0-5)
[2023-04-14 13:49] VITALS: BP 137/74; PULSE 72; RESP 16; TEMP 36.3; O2SAT 95
== END 2023-04-14 13:50 | disposition home or self-care (01) ==
PROVIDERS: Physician Assistant; Emergency Provider Emergency Medicine; PCP Family Medicine; Visit Provider Emergency Medicine
DX: R55 Syncope and collapse (principal); F03.90 Unspecified dementia, unspecified severity, without behavioral disturbance, psychotic disturbance, mood disturbance, and anxiety; N39.0 Urinary tract infection, site not specified; N18.9 Chronic kidney disease, unspecified; Z86.16 Personal history of COVID-19; Z86.711 Personal history of pulmonary embolism
CPT/HCPCS: 70450; 71045; 80048; 81001; 85025; 87086; 87088; 93005; 99283; A4216

== ENCOUNTER 2024-02-20 13:14 | Emergency (ER) | payer MEDICARE, MEDICAID, SELFPAY ==
[2024-02-20 13:19] VITALS: BP 148/87; PULSE 43; RESP 14; TEMP 36.6; O2SAT 98; BMI 24.7
--- NOTE | 2024-02-20 13:52 | EKG12_ITS ---
Test Reason : BRADYCARDIA Blood Pressure : */* mmHG Vent. Rate : 52 BPM Atrial Rate : 52 BPM P-R Int : 242 ms QRS Dur : 82 ms QT Int : 482 ms P-R-T Axes : 63 15 43 degrees QTcB Int : 448 ms Sinus bradycardia with 1st degree A-V block Septal infarct , age undetermined Abnormal ECG Confirmed by JENNIFER JACQUES, JANESSA ([id number]), editor farm journal NAFISA JARAMILLO ([id number]) on 02/23/2024 8:00:36 AM Referred By: BB/LUKE Confirmed By: JANESSA RODRIGUEZ MD
--- NOTE | 2024-02-20 13:53 | EDS_ITS ---
HPI History of Present Illness Chief Complaint: Weakness Informant: patient, family and EMS Narrative Narrative: 83-year-old female living at home with daughter who was not there at the time but she had an aide was there, she had a near syncopal episode. Patient remembers feeling this way but does not recall what she was doing and we do not have that information but the daughter states she has had near syncopal episodes when on the toilet having bowel movements before. Her heart rate is abnormally low which is new for her according to the daughter. Before my seeing the patient here in the ER, staff tells me she went down to the low 40s and felt her dizzy with that and vomited and she still feels nauseated but denies any chest discomfort earlier or now and denies abdominal pain right now. Has been having loose bowel movements no constipation. No blood. PFSH PFSH Medical History Dementia COVID-19 Pulmonary embolism Pneumonia Bronchitis Home Medications ?Medication ?Instructions ?Recorded ?Last Taken ?Type donepezil 10 mg tablet 20 mg PO QHS dementia 04/10/18 12/09/19 History acetaminophen 325 mg tablet 650 mg (2 x 325 mg) PO Q6H PRN PRN 12/17/19 Unknown Rx Pain Score 1-10/Temp > 100.7 F rivaroxaban 20 mg tablet 20 mg PO DAILY 03/15/20 Unknown History Allergy/AdvReac Type Severity Reaction Status Date / Time Sulfa (Sulfonamide Allergy Intermediate Rash Verified 04/14/23 11:07 Antibiotics) apixaban (From Eliquis) Allergy Rash Verified 04/14/23 11:02 sulfamethoxazole Allergy Rash Verified 04/14/23 11:07 ciprofloxacin (From Cipro) AdvReac Nausea/Vom/ Verified 04/14/23 11:07 Diarrhea Family History Other No pertinent family history Surgical History No pertinent past surgical history Social History Smoking Status: Never smoker ROS ROS ED Constitutional Constitutional ED: Denies chills or fever(s) Eyes Eyes: Denies change in vision or diplopia ENT ENT ED: Denies rhinorrhea or sore throat Cardiovascular Cardiovascular: Reports as per HPI and syncope; Denies chest pain or palpitations Respiratory/Chest Respiratory/Chest: Denies cough or dyspnea Gastrointestinal Gastrointestinal: Reports nausea and vomiting; Denies abdominal pain or melena Genitourinary Genitourinary ED: Denies dysuria or hematuria Musculoskeletal Musculoskeletal: Denies back pain or neck pain Integumentary Denies abscess or rash Neurologic Neurologic: Denies headache(s), paresthesias or weakness EXAM Physical Exam Const Vital Signs: 02/20/24 13:19 02/20/24 14:01 02/20/24 14:25 Temperature 98 F Temperature Source Oral Pulse Rate 43 L 42 L Respiratory Rate 14 18 Blood Pressure 148/87 H 140/79 H Blood Pressure Mean 107 99 Pulse Ox 98 97 Oxygen Delivery Method Room Air Room Air Room Air 02/20/24 15:00 02/20/24 16:00 02/20/24 17:00 Temperature Temperature Source Pulse Rate 53 L 51 L 58 L Respiratory Rate 16 16 18 Blood Pressure 139/68 H 137/70 H 113/60 Blood Pressure Mean 91 92 77 Pulse Ox 95 96 97 Oxygen Delivery Method Room Air Room Air Room Air Positive well nourished and well developed General Appearance ED: well developed and NAD HEENT Reports moist mucous membranes normocephalic and atraumatic Eyes PERRL and EOMs intact bilaterally Neck full ROM and supple Resp normal respiratory effort and clear to auscultation bilaterally Cardio regular rate, regular rhythm and no murmurs Rate: bradycardia GI non-tender and non-distended Auscultation: normoactive bowel sounds Palpation: soft Back/Spine no CVA tenderness General Back: other FROM Extremity normal to inspection General Extremety ED: Negative for edema, pulses abnormal or tenderness General Extremity: Negative for edema or pulses abnormal Neuro CN's II-XII intact bilaterally and no sensory deficits noted Sensorium / Orientation: awake, alert and orientation impaired Motor Exam: strength 5/5 throughout Psych mental status grossly normal Skin no rashes or lesions noted and no wounds MDM MDM MDM Narrative Medical decision making narrative: Patient was saying that her stomach was bothering her, she initially was saying that it hurt and then she was admitting that it was more nausea, abdominal exam very benign without tenderness. However after I left the room she started having lower abdominal pain which was tender on reexamination. Therefore and in addition to a 1 view chest x-ray which is unremarkable my interpretation, she was sent for CT of abdomen/pelvis. I reviewed those images and report which I agree with, it is essentially negative. There is incidental diverticulosis but without diverticulitis. The rest of her labs are unremarkable except for some mild renal deficiency, she has 2 sequential single digit high-sensitivity troponins. She had no further episodes of symptomatic bradycardia here in emergency department. It appeared that she was on metoprolol succinate, but on more discussion with the patient and her daughter, she is no longer taking that. Daughter states she has had this happen before, this was more of a pron ounced/prolonged episode from what she saw though she was not there initially. We are not able to get a hold of the aide right now to see the exact context of the symptoms prior to coming to the ER, but daughter states she is back to herself now, and we ambulated her, her heart rate actually increased from the 60s to the 80s and 90s with this and she was asymptomatic. Given all of this uncomfortable with her going home. I discussed with Dr. Roe he recommends putting 48-hour Holter on her, respiratory had one available and so we did that and she will follow-up. Lab Data Attestation: I reviewed the patient's lab results. Labs: Laboratory Results - last 24 hr 02/20/24 02/20/24 13:37 16:20 WBC 8.1 RBC 4.09 L Hgb 12.9 Hct 39.7 MCV 97.1 MCH 31.5 MCHC 32.5 RDW Std Deviation 47.0 H RDW Coeff of Kaye 13.2 Plt Count 264 MPV 10.6 Immature Gran % (Auto) 0.400 Neut % (Auto) 67.8 Lymph % (Auto) 21.5 Bullock % (Auto) 6.8 Eos % (Auto) 2.6 Baso % (Auto) 0.9 Absolute Neuts (auto) 5.5 Absolute Lymphs (auto) 1.74 Nucleated RBC % 0 Sodium 140 Potassium 4.9 Chloride 112 H Carbon Dioxide 25.0 Anion Gap 4 L BUN 25 H Creatinine 1.34 H Estim Creat Clear Calc 27.62 Est GFR (MDRD) Af Amer 48 L Est GFR (MDRD) Non-Af 40 L BUN/Creatinine Ratio 18.7 Glucose 160 H Calcium 9.6 Total Bilirubin 0.30 Direct Bilirubin 0.07 AST 19 ALT 19 Alkaline Phosphatase 55 Troponin I High Sens 3 6 Total Protein 7.4 Albumin 3.7 Globulin 3.7 Radiography Diagnostic Testing: Clinical Impression(s) from Imaging Studies Chest X-Ray 02/20/24 14:30 IMPRESSION: Degenerative changes, as described above. No demonstrated acute cardiopulmonary process. Electronically Signed: Gregor Ham MD at 15:02 EST Reading Location ID and State: [address] [place] [address] , Service support , Abdomen/Pelvis CT 02/20/24 14:58 IMPRESSION: 1. Colonic diverticulosis without acute disease Electronically Signed: Gregor Ham MD at 15:47 EST Reading Location ID and State: [facility] , Service support , Rhythm Strip Rhythm Strip: Sinus Rhythm (Sinus bradycardia) Rate: 45 Ectopy: None EKG Initial EKG: Attestation: I personally reviewed and interpreted this EKG as follows: Interpretation: No Acute Injury Pattern, Sinus Bradycardia and AV Block (1st deg) Comments: Nml axis & intervals except prolonged SD Prior EKG tracings: available for review Prior: Changed (1st deg AVB is new, otherwise appears unchanged) Management Discussion w/another healthcare provider: Diplomatic Interpreter (cardiology) Discharge Plan Triage Chief Complaint: Weakness ED Provider: Alfredo Keita Dx/Rx/DC Orders Clinical Impression: Symptomatic bradycardia, CKD (chronic kidney disease), stage III Instructions: ED Bradycardia Prescriptions: Continued donepezil 10 MG tablet 20 mg PO QHS acetaminophen 325 MG tablet 650 mg PO Q6H PRN PRN (Reason: Pain Score 1-10/Temp > 100.7 F) 0RF rivaroxaban 20 MG tablet 20 mg PO DAILY Discontinued metoprolol succinate 25 MG tablet extended release 24 hr 12.5 mg PO DAILY Qty: 30 0RF sulfamethoxazole-trimethoprim [sulfamethoxazole-trimethoprim] 1 TABLET tablet 1 tab PO BID Qty: 6 0RF cephalexin 500 mg capsule 500 mg PO Q12 Qty: 14 0RF cephalexin 500 mg capsule 500 mg PO Q12 Qty: 14 0RF Primary Care Provider: Skinny Bains Referrals: Skinny Bains MD [Primary Care Provider] - Activity Restrictions/Additional Instructions: after the holter, follow up with your crossing gateman Print Language: Serbian Disposition Disposition: Home, Self Care
[2024-02-20] MEDS: Ondansetron 4 MG/2 ML Vial IV (14:02)
[2024-02-20 14:03] LABS: Absolute Lymphocyte Count 1.74 X10^3/uL (0.83-4.51); Absolute Neutrophil Count 5.5 X10^3/uL (2.0-7.7); Basophil# 0.07 X10^3/uL; Basophil% 0.9 % (0-1); Eosinophil# 0.21 X10^3/uL; Eosinophils% 2.6 % (0-5); Hematocrit 39.7 % (37-47); Hemoglobin 12.9 g/dL (12.0-15.0); Lymphocyte # 1.74 X10^3/ul (0.83-4.51); Lymphocyte % 21.5 % (19-41); Mean Corp Hgb Conc 32.5 g/dL (32-36); Mean Corpuscular Hgb 31.5 pg (27.0-32.0); Mean Corpuscular Volume 97.1 fL (81-99); Mean Platelet Vol. 10.6 fl (6.2-12.0); Monocyte# 0.55 X10^3/uL; Monocyte% 6.8 % (0-10); NRBC Flagged by Analyzer 0 % (0-5); Neutrophil # 5.51 X10^3/uL (2.7-7.7); Neutrophil % 67.8 % (47-70); Platelet Count 264 K/mm3 (150-450); RBC Distribution Width CV 13.2 % (11.6-14.6); Red Blood Count 4.09 M/mm3 (4.2-5.4); White Blood Count 8.1 K/mm3 (4.4-11.0)
[2024-02-20] MEDS: 0.9% Normal Saline (500mL Bag) 500 ML 999 ML IV (14:07)
[2024-02-20 14:25] VITALS: BP 140/79; PULSE 42; RESP 18; O2SAT 97
--- NOTE | 2024-02-20 14:30 | RAD_ITS ---
STUDY: X-RAY CHEST REASON FOR EXAM: Female, 83 years old. near-syncope TECHNIQUE: Single AP portable view of the chest. COMPARISON: April 14, 2023 FINDINGS: No demonstrated consolidation or pulmonary edema. COPD/emphysema. There are interstitial fibrotic changes of the lungs. There is no demonstrated pleural abnormality. Normal size heart. Normal mediastinum and nay. Normal visualized pulmonary arteries. There is atherosclerotic calcification of the aortic arch with tortuosity. There are diffuse degenerative changes of the visualized thoracic spine. Normal visualized ribs, clavicles, and shoulders. There is no demonstrated abnormality of the visualized soft tissue structures of the upper abdomen. RAD/Chest 1 View (Portable) IMPRESSION: Degenerative changes, as described above. No demonstrated acute cardiopulmonary process. Electronically Signed: Gregor Ham MD at 15:02 EST ,
[2024-02-20 14:46] LABS: Anion Gap 4 (5-15); BUN 25 mg/dL (7-18); BUN/Creat Ratio 18.7 RATIO (10-20); Calcium,Total 9.6 mg/dL (8.5-10.1); Chloride 112 mmol/L (98-107); Creatinine, Serum 1.34 mg/dL (0.55-1.02); EST Glomerular Filtration Rate 40 mL/min (>60); Est Glom Filt Rate - Afr Amer 48 mL/min (>60); Estimated Creatinine Clearance 27.62 ml/min; Glucose 160 mg/dL (74-106); Potassium 4.9 mmol/L (3.5-5.1); Sodium Level 140 mmol/L (136-145); Troponin-I HS (w/2H Reflex) 3 pg/mL (3.0-54.0)
[2024-02-20] MEDS: Morphine 2 MG/ML Syringe IV (14:51)
--- NOTE | 2024-02-20 14:58 | CT_ITS ---
STUDY: CT ABDOMEN AND PELVIS WITHOUT CONTRAST REASON FOR EXAM: Female, 83 years old. RADIATION DOSAGE (If Supplied By Facility): CTDIvol = ( 12.44 ) mGy, DLP = ( 609.12 ) mGycm TECHNIQUE: Transaxial images were obtained from the dome of the diaphragm to the symphysis pubis without oral contrast, and without intravenous contrast. Sagittal and coronal images were reconstructed. Individualized dose optimization techniques were used for this CT. COMPARISON: CT of abdomen and pelvis dated December 12, 2020 FINDINGS: Significant cystic emphysematous changes and mild to moderate interstitial fibrosis present. Small nodular focus of fibrosis redemonstrated in the posterior aspect of the right lower lobe measuring 7 mm in diameter which does not requiring additional imaging or assessment. Normal liver. Normal gallbladder and extrahepatic biliary system. Normal spleen. Normal pancreas. Normal bilateral adrenal glands. There is moderate cortical atrophy of the right kidney, consistent with chronic medical renal disease. There is moderate cortical atrophy of the left kidney, consistent with chronic medical renal disease. No radiopaque kidney or ureteral stones or hydronephrosis. Normal visualized stomach. Normal small intestine. Normal colon. No free air or free fluid or bowel dilatation. Sigmoid diverticulosis is present without evidence of acute diverticulitis. Several additional diverticula of the transverse colon is present. Portable is redundant distal transverse colon with hairpin loop and folding back of the loops. No evidence of volvulus. Disease not seen. There is diffuse atherosclerotic calcification of the abdominal aorta, without a demonstrated aneurysm. Normal inferior vena cava. Normal retroperitoneum. Normal urinary bladder. Unremarkable uterus. Vaginal pessary noted. Unremarkable adnexal regions. Normal abdominal wall. There are diffuse degenerative changes of the visualized lumbar spine. Significant dextroscoliosis of the lumbar spine. CT/Abdomen/Pelvis without Cont IMPRESSION: 1. Colonic diverticulosis without acute disease Electronically Signed: Gregor Ham MD at 15:47 EST ,
[2024-02-20 15:00] VITALS: BP 139/68; PULSE 53; RESP 16; O2SAT 95
[2024-02-20 15:40] LABS: AST(SGOT) 19 U/L (15-37); Alanine Aminotransfer ALT/SGPT 19 U/L (13-56); Albumin, Serum 3.7 g/dL (3.2-5.0); Alkaline Phosphatase 55 U/L (45-117); Bilirubin, Direct 0.07 mg/dL (0.00-0.30); Globulin 3.7 g/dL (2.2-4.2); Protein, Total 7.4 g/dL (6.4-8.2)
--- NOTE | 2024-02-20 15:46 | CM.ED ---
Social work This SW identified patient's advance directives needing to be validated. This SW entered patient's room, introducing self and role at [facility]. Patient was lying in bed, alert and oriented. Patient's daughter, Elsa, was bedside and patient gave permission for SW to speak in front of Elsa. Patient stated being confused why patient was in the ED; Elsa confirmed patient has the onset of dementia. Elsa confirmed that Elsa is patient's HCPOA and agreed to bring in advance directives for [facility] to have on patient's chart. Patient and Elsa denied further needs at this time. Aminta Andrews, MATERIAL PREPARATION WORKER, FOURDRINIER MACHINE TENDER
[2024-02-20 15:58] LABS: Reflex Troponin-HS? (from REC) Y
[2024-02-20 16:00] VITALS: BP 137/70; PULSE 51; RESP 16; O2SAT 96
[2024-02-20 16:45] LABS: Troponin-I HS 6 pg/mL (3.0-54.0)
[2024-02-20 17:00] VITALS: BP 113/60; PULSE 58; RESP 18; O2SAT 97
--- NOTE | 2024-02-20 17:19 | ED.RN ---
pt. ambulated with monitoring tech, HR 80-95.Pt. asymptomatic and requesting to go home.
[2024-02-20 17:45] VITALS: BP 113/60; PULSE 51; RESP 16; TEMP 36.6; O2SAT 96
== END 2024-02-20 18:00 | disposition home or self-care (01) ==
PROVIDERS: Emergency Provider Emergency Medicine; PCP Family Medicine; Visit Provider Emergency Medicine
DX: R53.1 Weakness (principal); F03.90 Unspecified dementia, unspecified severity, without behavioral disturbance, psychotic disturbance, mood disturbance, and anxiety; N18.30 Chronic kidney disease, stage 3 unspecified; R00.1 Bradycardia, unspecified; Z79.899 Other long term (current) drug therapy; Z86.711 Personal history of pulmonary embolism; Z79.01 Long term (current) use of anticoagulants
CPT/HCPCS: 71045; 74176; 80048; 80076; 84484; 85025; 93005; 96361; 96374; 96375; 99285; A4216; J2405

== ENCOUNTER → 2024-02-20 | Outpatient (CLI) | payer MEDICARE, MEDICAID, SELFPAY | END | disposition home or self-care (01) | LOC: CVS 17:40 | PROVIDERS: PCP Family Medicine; Referring Provider Internal Medicine Cardiovascular Disease; Visit Provider Emergency Medicine | DX: R00.1 Bradycardia, unspecified (principal) | CPT/HCPCS: 93225; 93226 ==

== ENCOUNTER 2024-07-11 09:39 | Emergency (ER) | payer MEDICARE, MEDICAID, SELFPAY ==
[2024-07-11 09:40] VITALS: BP 140/75; PULSE 75; RESP 18; TEMP 36.6; O2SAT 98; BMI 23.3
--- NOTE | 2024-07-11 10:14 | EKG12_ITS ---
Test Reason : SYNCOPE Blood Pressure : */* mmHG Vent. Rate : 77 BPM Atrial Rate : 77 BPM P-R Int : 224 ms QRS Dur : 88 ms QT Int : 390 ms P-R-T Axes : 56 -32 51 degrees QTcB Int : 441 ms Sinus rhythm with 1st degree A-V block Left axis deviation Abnormal ECG When compared with ECG of 20-Feb-2024 13:19, Vent. rate has increased by 25 bpm QRS axis Shifted left Criteria for Septal infarct are no longer Present Confirmed by Seven Saleem ([id number]), design editor ZULAY EDDY ([id number]) on 07/20/2024 10:05:55 AM Referred By: CARINA Confirmed By: Seven Saleem
--- NOTE | 2024-07-11 10:22 | EX.ED.DYSGE1 ---
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 Patient was having a bowel movement in the daughter noted she been in the bathroom for a while. Daughter went to check on her and patient seemed short of breath and fell if she was overheating. She does seem like she is about to pass out. Her daughter (whom she lives with) placed a cool rag on her and took her sweater off. She helped her off the toilet with the aid of the patient's granddaughter and the patient passed out when she stood up. They then got onto the rollator. When they were rolling her into her bedroom she then passed out again. She did not fall but her daughter states that she seemed stiff and her eyes rolled back in her head. She became very pale. Daughter states it felt like a long time she does not think she was out for very long. There is no injury or head injury. She has had similar episode in the past but it was after COVID. Patient is otherwise been in her normal state of health. She onset abdominal was a little dark but no report of obvious melena or blood in her stool. No report of any recent fevers, vomiting or URI symptoms. She has some chronic postnasal drip which is unchanged. Family helps with her medications and states that she has been compliant with her Xarelto. Patient currently has no complaint besides feeling a little cold. [facility] Medical History Dementia COVID-19 Pulmonary embolism Pneumonia Bronchitis Home Medications ?Medication ?Instructions ?Recorded ?Last Taken ?Type rivaroxaban 20 mg tablet 20 mg PO DAILY 03/15/20 07/10/24 History apple cider vinegar 1 cap PO DAILY 07/11/24 07/10/24 History calcium carbonate 600 mg PO DAILY 07/11/24 07/10/24 History cephalexin 500 mg capsule 500 mg PO Q12 #10 CAPSULES 07/11/24 Unknown Rx cranberry fruit 400 mg tablet 400 mg PO DAILY 07/11/24 07/10/24 History hydroxyzine pamoate 25 mg capsule 25 mg PO TID PRN anxiety 07/11/24 07/10/24 History levetiracetam 500 mg 750 mg PO DAILY 07/11/24 07/10/24 History tablet,extended release 24 hr multivitamin (Daily Multi-Vitamin 1 tab PO DAILY 07/11/24 07/10/24 History tablet) Allergy/AdvReac Type Severity Reaction Status Date / Time Sulfa (Sulfonamide Allergy Intermediate Rash Verified 07/11/24 09:43 Antibiotics) apixaban (From Eliquis) Allergy Rash Verified 07/11/24 09:43 sulfamethoxazole Allergy Rash Verified 07/11/24 09:43 ciprofloxacin (From Cipro) AdvReac Nausea/Vom/ Verified 07/11/24 09:43 Diarrhea Family History Other No pertinent family history Surgical History No pertinent past surgical history Social History Smoking Status: Never smoker ROS ROS ED Constitutional Constitutional ED: Reports sweats and other Details: Syncopal episode ; Denies chills or fever(s) Eyes Eyes: Denies change in vision Cardiovascular Cardiovascular: Denies chest pain Respiratory/Chest Respiratory/Chest: Denies cough or dyspnea Gastrointestinal Gastrointestinal: Denies abdominal pain, melena, nausea or vomiting Musculoskeletal Musculoskeletal: Denies arthralgias or myalgias Integumentary Denies rash Neurologic Neurologic: Denies headache(s), paresthesias or weakness Hematologic/Lymphatic Hematologic/Lymphatic: Reports easy bleeding, easy bruising and other Details: On Xarelto EXAM Physical Exam Const Vital Signs: 07/11/24 09:40 07/11/24 09:45 07/11/24 11:36 Temperature 97.9 F Temperature Source Oral Pulse Rate 75 Pulse Rate [Lying] 72 Pulse Rate [Sitting (for 1 minute prior to obtaining)] 79 Pulse Rate [Standing (for 1 minute prior to obtaining)] 94 Respiratory Rate 18 Respiratory Pattern Normal Blood Pressure 140/75 H Blood Pressure [Lying] 148/73 H Blood Pressure [Sitting (for 1 minute prior to obtaining)] 117/81 H Blood Pressure [Standing (for 1 minute prior to obtaining)] 121/74 H Blood Pressure Mean 96 Blood Pressure Mean [Lying] 98 Blood Pressure Mean [Sitting (for 1 minute prior to obtaining)] 93 Blood Pressure Mean [Standing (for 1 minute prior to obtaining)] 89 Pulse Ox 98 Oxygen Delivery Method Room Air 07/11/24 11:39 07/11/24 13:00 07/11/24 13:08 Temperature 97.9 F Temperature Source Pulse Rate 93 70 Pulse Rate [Lying] Pulse Rate [Sitting (for 1 minute prior to obtaining)] Pulse Rate [Standing (for 1 minute prior to obtaining)] Respiratory Rate 17 16 Respiratory Pattern Blood Pressure 121/74 H 133/95 H 133/95 H Blood Pressure [Lying] Blood Pressure [Sitting (for 1 minute prior to obtaining)] Blood Pressure [Standing (for 1 minute prior to obtaining)] Blood Pressure Mean 89 107 107 Blood Pressure Mean [Lying] Blood Pressure Mean [Sitting (for 1 minute prior to obtaining)] Blood Pressure Mean [Standing (for 1 minute prior to obtaining)] Pulse Ox 96 99 98 Oxygen Delivery Method Room Air Positive well nourished and well developed General Appearance ED: well developed and NAD; Negative for pallor HEENT HEENT Narrative: Mildly tacky mucosal membranes Negative for trauma Eyes PERRL General Eye ED: Negative for pale conjunctiva Neck supple and no JVD Chest Wall inspection of chest normal and palpation of chest normal Resp normal respiratory effort and clear to auscultation bilaterally Cardio regular rate, regular rhythm and no murmurs GI normal to inspection, nondistended, normoactive bowel sounds and non-tender Palpation: soft; Negative for tender or guarding Extremity normal to inspection General Extremety ED: Negative for edema General Extremity: Negative for edema Neuro Neuro Narrative: Patient at her cognitive baseline. Oriented to self and situation. Sensorium / Orientation: alert Motor Exam: Negative for general weakness Psych mental status grossly normal Skin no rashes or lesions noted and no wounds General Skin Exam: Negative for pallor MDM MDM MDM Narrative Medical decision making narrative: Patient evaluated with syncopal episode associate with try to have a bowel movement. Differential includes arrhythmia, GI bleed, vasovagal episode, hypovolemia and ACS. Patient is anticoagulated suspicion for PE as the cause. She does not have any fall/hit her head and I do not think she needs a CT of the brain. She is not any focal neurologic deficits and I do not think this is any type of stroke or intracranial process Will obtain workup including EKG, high sensitive troponin, CBC, BMP and urinalysis as well as orthostatic vital signs. Patient given a 500 cc bolus of IV fluids. Patient had positive orthostatic with blood pressure but was asymptomatic. No significant change in her heart rate. Lab workup including CBC and CMP as well as delta high-sensitivity opponent largely normal. She has a baseline elevation of her creatinine which is stable. Her bicarb is mildly low at 16.6. This consistent with her needing some IV fluids. CBC does not show leukocytosis or acute anemia. Low suspicion for any type of symptomatic anemia or severe systemic infection. Urinalysis is concerning for urinary tract infection with 500 leukocyte esterase, 25-50 white blood cells and 3+ bacteria. Urine culture sent will start the patient on Keflex. Prior urine culture from 2022 showed E. coli that was resistant to Macrobid. Patient is ambulatory in the ER. Return to her baseline. I do not think this was a cardiac event. Can be discharged home. Is given close return precautions. Patient and mother agreeable with plan of care. Discharged home in stable condition. First dose of antibiotics given in the emergency room While in the ER daughter did report concern of possible rectal masses patient is woken up from naps talking about the discomfort or something being put in her rectum. Rectum exam performed with nursing communications tower climber and there is no impaction or significant stool in the vault. Trace brown stool present. No signs of melena. There are some nonthrombosed/nonbleeding external hemorrhoids present. History & Record Review Additional record(s) reviewed:: Other (Holter monitor from 02/20/2024-sinus rhythm with first gravy block. PVCs present. No A-fib noted.) Lab Data Attestation: I reviewed the patient's lab results. Labs: Laboratory Results - last 24 hr 07/11/24 07/11/24 07/11/24 09:59 11:28 12:20 WBC 5.7 RBC 4.12 L Hgb 13.4 Hct 40.2 MCV 97.6 MCH 32.5 H MCHC 33.3 RDW Std Deviation 47.0 H RDW Coeff of Kaye 13.2 Plt Count 228 MPV 10.2 Immature Gran % (Auto) 0.400 Neut % (Auto) 54.7 Lymph % (Auto) 34.5 Knott % (Auto) 7.0 Eos % (Auto) 2.5 Baso % (Auto) 0.9 Absolute Neuts (auto) 3.1 Absolute Lymphs (auto) 1.97 Nucleated RBC % 0 Sodium 138 Potassium 4.3 Chloride 109 H Carbon Dioxide 16.6 L Anion Gap 12 BUN 25 H Creatinine 1.28 H Estim Creat Clear Calc 28.39 L Est GFR (MDRD) Non-Af 41 L BUN/Creatinine Ratio 19.4 Glucose 138 H Calcium 9.3 Troponin T High Sens 12 Troponin T Hi Sens 2 Hr 12 Urine Color Yellow Urine Clarity Sl. Cloudy Urine pH 6.0 Ur Specific Newcomb 1.020 Urine Protein 100 H Urine Glucose (UA) Normal Urine Ketones Negative Urine Occult Blood 150 H Urine Nitrite Negative Urine Bilirubin Negative Urine Urobilinogen Normal Ur Leukocyte Esterase 500 H Urine RBC 0-5 SEEN Urine WBC 25-50 SEEN Ur Squamous Epith Cells 0-5 SEEN Urine Bacteria 3+ Urine Mucus 0 SEEN Radiography Diagnostic Testing: Clinical Impression(s) from Imaging Studies Chest X-Ray 07/11/24 10:27 IMPRESSION: No focal consolidations. Reading Location: [facility] [place] Rhythm Strip Rhythm Strip: Sinus Rhythm Rate: 77 Ectopy: PVC(s) EKG Initial EKG: Attestation: I personally reviewed and interpreted this EKG as follows: Interpretation: Sinus Rhythm Comments: Normal sinus rhythm at a rate of 77 bpm with first-degree AV block NH interval 224 Left axis deviation Normal ST segments Prior EKG tracings: available for review Prior: Unchanged Discharge Plan Triage Chief Complaint: Syncope ED Provider: Patricia Hernandez Dx/Rx/DC Orders Clinical Impression: Syncope and collapse, Acute UTI, Dehydration, mild Instructions: UTIs, ED Fainting, Vagal Reaction Prescriptions: New cephalexin 500 mg capsule 500 mg PO Q12 Qty: 10 0RF No Action rivaroxaban 20 MG tablet 20 mg PO DAILY Patient Comments: PT TAKES WITH DINNER hydroxyzine pamoate 25 mg capsule 25 mg PO TID PRN (Reason: anxiety) levetiracetam 500 mg tablet extended release 24 hr 750 mg PO DAILY Patient Comments: PT TAKES AT NIGHT apple cider vinegar 1 cap PO DAILY calcium carbonate 600 mg calcium (1,500 mg) tablet 600 mg PO DAILY cranberry fruit 400 mg tablet 400 mg PO DAILY Rx Instructions: administer with a meal multivitamin [Daily Multi-Vitamin] Tablet 1 tab PO DAILY Primary Care Provider: Skinny Bains Referrals: Skinny Bains MD [Primary Care Provider] - Activity Restrictions/Additional Instructions: Skylar's urinalysis is consistent with a urinary tract infection. She is been started antibiotics for this. She also has an findings of mild dehydration. Her workup is otherwise largely normal and reassuring. Please follow-up with your family doctor next week for recheck. Continue to encourage/push fluids. Try daily Metamucil to help have regular soft bowel movements improve vent over straining/pushing. Print Language: Bengali Disposition Disposition: Home, Self Care Discharge Date/Time: 07/11/24 13:14
[2024-07-11] MEDS: 0.9% Normal Saline (500mL Bag) 500 ML 1000 ML IV (10:23)
--- NOTE | 2024-07-11 10:27 | RAD_ITS ---
PROCEDURE: CHEST PA AND LATERAL 07/11/2024 REASON FOR EXAM: SYNCOPE TECHNIQUE: Frontal and lateral views of the chest. COMPARISON: None FINDINGS: No focal consolidations. No pleural effusion or pneumothorax. Cardiac silhouette is unremarkable. No acute fractures. RAD/Chest PA and Lateral IMPRESSION: No focal consolidations. Reading Location: [id number]
[2024-07-11 10:29] LABS: Absolute Lymphocyte Count 1.97 X10^3/uL (0.83-4.51); Absolute Neutrophil Count 3.1 X10^3/uL (2.0-7.7); Basophil# 0.05 X10^3/uL; Basophil% 0.9 % (0-1); Eosinophil# 0.14 X10^3/uL; Eosinophils% 2.5 % (0-5); Hematocrit 40.2 % (37-47); Hemoglobin 13.4 g/dL (12.0-15.0); Lymphocyte # 1.97 X10^3/ul (0.83-4.51); Lymphocyte % 34.5 % (19-41); Mean Corp Hgb Conc 33.3 g/dL (32-36); Mean Corpuscular Hgb 32.5 pg (27.0-32.0); Mean Corpuscular Volume 97.6 fL (81-99); Mean Platelet Vol. 10.2 fl (6.2-12.0); NRBC Flagged by Analyzer 0 % (0-5); Neutrophil # 3.13 X10^3/uL (2.7-7.7); Neutrophil % 54.7 % (47-70); Platelet Count 228 K/mm3 (150-450); RBC Distribution Width CV 13.2 % (11.6-14.6); Red Blood Count 4.12 M/mm3 (4.2-5.4); White Blood Count 5.7 K/mm3 (4.4-11.0)
[2024-07-11 10:49] LABS: Anion Gap 12 (5-15); BUN 25 mg/dL (4-19); BUN/Creat Ratio 19.4 RATIO (10-20); Calcium,Total 9.3 mg/dL (7.6-11.0); Carbon Dioxide 16.6 mmol/L (21.0-32.0); Chloride 109 mmol/L (98-108); Creatinine, Serum 1.28 mg/dL (0.70-1.20); EST Glomerular Filtration Rate 41 (>60); Estimated Creatinine Clearance 28.39 ml/min (50-250); Glucose 138 mg/dL (70-99); Potassium 4.3 mmol/L (3.3-5.1); Sodium Level 138 mmol/L (133-145); Troponin T High Sensitivity 12 ng/L (<=14)
[2024-07-11 11:32] LABS: Mucous, Urine 0 SEEN /hpf (<or=2+)
[2024-07-11 11:36] VITALS: BP 117/81; BP 121/74; BP 148/73; PULSE 72; PULSE 79; PULSE 94
[2024-07-11 11:39] VITALS: BP 121/74; PULSE 93; RESP 17; O2SAT 96
[2024-07-11 11:45] LABS: Color, Urine Yellow (Yellow); Glucose, Dipstick Normal (Normal); Ketone-Dipstick Negative (Negative); Leukocyte Esterase-Dipstick 500 /ul (Negative); Nitrite-Dipstick Negative (Negative); Occult Blood-Urine 150 /ul (Negative); Protein-Dipstick 100 mg/dl (Negative); Urine Bilirubin Dipstick Negative (Negative); Urine Clarity Sl. Cloudy (Clear); Urine Urobilinogen Normal (Normal)
[2024-07-11 11:50] LABS: Bacteria 3+ /hpf (None Seen)
[2024-07-11 11:51] LABS: Squamous Epithelial Cells - UA 0-5 SEEN /hpf (5-10); White Blood Cells 25-50 SEEN /hpf (0-5)
[2024-07-11 11:52] LABS: Red Blood Cells-Urine 0-5 SEEN /hpf (0-5)
[2024-07-11 12:43] LABS: Troponin T High Sens 2 HR 12 ng/L (<=14)
[2024-07-11 13:00] VITALS: BP 133/95; O2SAT 99
[2024-07-11] MEDS: Cephalexin 250 MG Capsule 500 MG PO (13:05)
[2024-07-11 13:08] VITALS: BP 133/95; PULSE 70; RESP 16; TEMP 36.6; O2SAT 98
== END 2024-07-11 13:14 | disposition home or self-care (01) ==
PROVIDERS: Emergency Provider Emergency Medicine; PCP Family Medicine; Visit Provider Emergency Medicine
DX: R55 Syncope and collapse (principal); N39.0 Urinary tract infection, site not specified; E86.0 Dehydration; K64.4 Residual hemorrhoidal skin tags; Z86.718 Personal history of other venous thrombosis and embolism; Z79.01 Long term (current) use of anticoagulants
CPT/HCPCS: 71046; 80048; 81001; 84484; 85025; 87077; 87086; 87088; 87186; 93005; 96360; 96361; 99285; A4216